=== PATIENT | female | born 1950 | race Caucasian/White ===

== ENCOUNTER 2019-01-01 17:33 | Emergency (ER) | payer MEDICARE, MEDICAID ==
[~2019-01-01] VITALS: Ht 154.9 cm; Wt 95.3 kg
--- OUTSIDE RECORDS SUMMARY | 2019-01-01 17:38 | XMS REPORT | Continuity of Care Document ---
Author Organization Unknown Address Unknown Allergies There is no data. Medications There is no data. Problems There is no data. Procedures There is no data. Results There is no data. Encounters ACCT No. Visit Date/Time Discharge Status Pt. Type Provider Facility Loc./Unit Complaint [id number] 12/21/2018 11:00:00 12/21/2018 23:59:59 CLS Outpatient Marcela Desir [facility]
[2019-01-01 18:00] LABS: EOSINOPHILS % (AUTO) 2 % (0-10); HEMATOCRIT 36 % (35-52); HEMOGLOBIN 12.1 G/DL (11.5-16.0); LYMPHOCYTES % (AUTO) 18 % (12-44); MEAN CORPUSCULAR HEMOGLOBIN 31 PG (25-34); MEAN CORPUSCULAR HGB CONC 34 G/DL (32-36); MEAN CORPUSCULAR VOLUME 91 FL (80-99); MEAN PLATELET VOLUME 11.5 FL (7.4-10.4); MONOCYTES % (AUTO) 6 % (0-12); NEUTROPHILS % (AUTO) 73 % (42-75); PLATELET COUNT 156 10^3/uL (130-400); RED CELL DISTRIBUTION WIDTH 12.8 % (10.0-14.5); WHITE BLOOD COUNT 7.7 10^3/uL (4.3-11.0)
[2019-01-01 18:01] LABS: BASOPHILS % (AUTO) 0 % (0-10); EOSINOPHILS # (AUTO) 0.1 10^3/uL (0.0-0.3); LYMPHOCYTES # (AUTO) 1.4 X 10^3 (1.0-4.0); MONOCYTES # (AUTO) 0.5 X 10^3 (0.0-1.0); NEUTROPHILS # (AUTO) 5.6 X 10^3 (1.8-7.8)
[2019-01-01 18:11] LABS: BUN/CREATININE RATIO 25; CARBON DIOXIDE 21 MMOL/L (21-32); CHLORIDE 93 MMOL/L (98-107); CREATININE SERUM 0.57 MG/DL (0.60-1.30); GFR ESTIMATED > 60; POTASSIUM 4.2 MMOL/L (3.6-5.0); SODIUM 131 MMOL/L (135-145)
[2019-01-01 18:12] LABS: ALANINE AMINOTRANSFERASE 25 U/L (0-55); ALBUMIN 3.9 GM/DL (3.2-4.5); ALKALINE PHOSPHATASE 66 U/L (40-136); BILIRUBIN,TOTAL 0.4 MG/DL (0.1-1.0); CALCIUM 8.4 MG/DL (8.5-10.1); GLUCOSE 101 MG/DL (70-105); TOTAL PROTEIN 6.3 GM/DL (6.4-8.2)
--- NOTE | 2019-01-01 18:21 | ED GI ---
General Chief Complaint: Abdominal/GI Problems Stated Complaint: LOOSE STOOL Source of Information: Patient, EMS History of Present Illness Date Seen by Provider: January 01, 2019 Time Seen by Provider: 18:20 Initial Comments 68-year-old female presenting with complaints of nausea and diarrhea. She presents by ambulance from home. She reports that she was having diarrhea since this morning. She was also having some nausea but no vomiting. She complained of some pain in the left side of her abdomen and was not sure if this is a be a recurrence of diverticulitis like she's had in the past. She was not having any blood in her stool. She also has severe arthritis but has not taken any of her medicines other than some metformin today. She was concerned that she stayed home she might pass out like she has an the past so she called 911 and had them bring her to the emergency department for evaluation. Her friend that helps to take care of her and check on her was out of town at a graduation so she was worried that if she didn't get checked out her friend would find her on the floor. She denies any fever or chills. She denies any pain with urination. She states that she's had several episodes of diarrhea throughout the day. Allergies and Home Medications Allergies Coded Allergies: aspirin (Unverified Adverse Reaction, Unknown, 01/01/19) Home Medications Ondansetron 4 Mg Tab.rapdis, 4 MG PO Q6H PRN for NAUSEA/VOMITING Prescribed by: JULIANA RAMÍREZ on 01/01/19 [id number] Patient Home Medication List Home Medication List Reviewed: Yes Review of Systems Review of Systems Constitutional: No chills, No fever; malaise EENTM: No Symptoms Reported Respiratory: No Symptoms Reported Cardiovascular: No Symptoms Reported Gastrointestinal: See HPI Genitourinary: See HPI Musculoskeletal: see HPI Skin: no symptoms reported Psychiatric/Neurological: Weakness (generalized) Endocrine: No Symptoms Reported Past Ewygdvw-Poqycb-Cccawc Hx Past Med/Social Hx: Reviewed Nursing Past Med/Soc Hx Patient Social History Alcohol Use: Denies Use Recreational Drug Use: No Smoking Status: Never a Smoker Recent Foreign Travel: No Contact w/Someone Who Travel: No Recent Hopitalizations: No Physical Abuse: No Sexual Abuse: No Mistreated: No Fear: No Immunizations Up To Date Date of Pneumonia Vaccine: Dec 21, 2017 Seasonal Allergies Seasonal Allergies: No Past Medical History Surgeries: Yes (S/P gastroplasty, hiatal hernia, ulnar nerve transposition, carpal tunnel ) Gallbladder Respiratory: No (hx of sinus surgery) Cardiac: Yes Hypertension Neurological: Yes (Polyneuropathy) Neuropathy Genitourinary: Yes (Renal insufficiency, Stage 3 CKD, cystitis hx, Incontinence ) UTI-Chronic Diverticulosis, Hiatal Hernia, Irritable Bowel Musculoskeletal: Yes (Bilateral sacroilitis hx, osteoathritis of spine, ) Chronic Back Pain, Fractures Endocrine: Yes (Type II DM, Morbid Obesity) Diabetes, Non-Insulin dep HEENT: Yes Cataract Cancer: No Psychosocial: Yes (Opioid dependence) Anxiety, Depression Integumentary: No (hx cellulitis) Blood Disorders: No Physical Exam Vital Signs Vital Signs - First Documented 01/01/19 17:33 Temp 97.1 Pulse 71 Resp 20 B/P (MAP) 140/64 (89) Pulse Ox 96 O2 Delivery Room Air Capillary Refill : Height/Weight/BMI Height: '" Weight: lbs. oz. kg; BMI Method: General Appearance: no apparent distress, obese HEENT: PERRL/EOMI, pharynx normal Neck: non-tender, supple, normal inspection Respiratory: chest non-tender, lungs clear, normal breath sounds, no respiratory distress, no accessory muscle use Cardiovascular: normal peripheral pulses, regular rate, rhythm, no murmur Gastrointestinal: soft, no pulsatile mass, abnormal bowel sounds (hyperactive) ; No distended, No guarding, No rebound; tenderness (mild left lower quadrant); No mass Extremities: normal range of motion, non-tender, no calf tenderness Neurologic/Psychiatric: alert, oriented x 3 Skin: normal color, warm/dry Progress/Results/Core Measures Results/Orders Lab Results Laboratory Tests Test 01/01/19 17:40 01/01/19 19:32 Range/Units White Blood Count 7.7 4.3-11.0 10^3/uL Red Blood Count 3.95 L 4.35-5.85 10^6/uL Hemoglobin 12.1 11.5-16.0 G/DL Hematocrit 36 35-52 % Mean Corpuscular Volume 91 80-99 FL Mean Corpuscular Hemoglobin 31 25-34 PG Mean Corpuscular Hemoglobin Concent 34 32-36 G/DL Red Cell Distribution Width 12.8 10.0-14.5 % Platelet Count 156 130-400 10^3/uL Mean Platelet Volume 11.5 H 7.4-10.4 FL Neutrophils (%) (Auto) 73 42-75 % Lymphocytes (%) (Auto) 18 12-44 % Monocytes (%) (Auto) 6 0-12 % Eosinophils (%) (Auto) 2 0-10 % Basophils (%) (Auto) 0 0-10 % Neutrophils # (Auto) 5.6 1.8-7.8 X 10^3 Lymphocytes # (Auto) 1.4 1.0-4.0 X 10^3 Monocytes # (Auto) 0.5 0.0-1.0 X 10^3 Eosinophils # (Auto) 0.1 0.0-0.3 10^3/uL Basophils # (Auto) 0.0 0.0-0.1 10^3/uL Sodium Level 131 L 135-145 MMOL/L Potassium Level 4.2 3.6-5.0 MMOL/L Chloride Level 93 L 98-107 MMOL/L Carbon Dioxide Level 21 21-32 MMOL/L Anion Gap 17 H 5-14 MMOL/L Blood Urea Nitrogen 14 7-18 MG/DL Creatinine 0.57 L 0.60-1.30 MG/DL Estimat Glomerular Filtration Rate > 60 BUN/Creatinine Ratio 25 Glucose Level 101 70-105 MG/DL Calcium Level 8.4 L 8.5-10.1 MG/DL Corrected Calcium 8.5 8.5-10.1 MG/DL Total Bilirubin 0.4 0.1-1.0 MG/DL Aspartate Amino Transf (AST/SGOT) 24 5-34 U/L Alanine Aminotransferase (ALT/SGPT) 25 0-55 U/L Alkaline Phosphatase 66 40-136 U/L Total Protein 6.3 L 6.4-8.2 GM/DL Albumin 3.9 3.2-4.5 GM/DL Urine Color PALE YELLOW Urine Clarity CLEAR Urine pH 6.5 5-9 Urine Specific [place] <=1.005 1.016-1.022 Urine Protein NEGATIVE NEGATIVE Urine Glucose (UA) NEGATIVE NEGATIVE Urine Ketones 1+ H NEGATIVE Urine Nitrite NEGATIVE NEGATIVE Urine Bilirubin NEGATIVE NEGATIVE Urine Urobilinogen 0.2 NORMAL MG/DL Urine Leukocyte Esterase TRACE H NEGATIVE Urine RBC (Auto) NEGATIVE NEGATIVE Urine RBC NEG /HPF Urine WBC RARE /HPF Urine Squamous Epithelial Cells 2-5 /HPF Urine Crystals NEG /LPF Urine Bacteria FEW H /HPF Urine Casts NONE /LPF Urine Mucus NEGATIVE /LPF Urine Culture Indicated NO My Orders Orders - JULIANA RAMÍREZ MD Ct Abdomen/Pelvis W (01/01/19 18:34) Ns Iv 1000 Ml (Sodium Chloride 0.9%) (01/01/19 18:45) Ondansetron Injection (Zofran Injectio (01/01/19 18:45) Stool Culture (01/01/19 18:36) Fecal Wbc (01/01/19 18:36) C Difficile Ag + Toxin A/B. (01/01/19 18:36) Isolation Central Supply Req (01/01/19 18:36) Rx-Ondansetron Po (Rx-Zofran Po) (01/01/19 21:15) Loperamide Capsule (Imodium Capsule) (01/01/19 21:15) Medications Given in ED Current Medications Medications Dose Ordered Sig/Lsahell Route Start Time Stop Time Status Last Admin Dose Admin Iohexol 100 ml ONCE ONCE IV 01/01/19 18:45 01/01/19 20:44 DC 01/01/19 19:14 80 ML Loperamide HCl 4 mg ONCE ONCE PO 01/01/19 21:15 01/01/19 21:17 DC 01/01/19 21:25 4 MG Ondansetron HCl 4 mg ONCE ONCE IVP 01/01/19 18:45 01/01/19 18:46 DC 01/01/19 19:20 4 MG Vital Signs/I&O 01/01/19 01/01/19 17:33 21:26 Temp 97.1 97.1 Pulse 71 71 Resp 20 20 B/P (MAP) 140/64 (89) 140/64 (89) Pulse Ox 96 96 O2 Delivery Room Air Room Air Progress Progress Note #1: Time: 18:30 Progress Note I assumed care of the patient from Dr. Rich. He had started some basic labs and tests on the patient just prior to my arrival. I added on a CT scan of her abdomen and pelvis to evaluate for her diarrhea and abdominal pain and see if she was having diverticulitis or any other pathology to be causing her symptoms. Progress Note #2: Time: 20:30 Progress Note Labs are all stable without acute significant maladies. Her chemistry and CBC were looking okay without elevation of creatinine her white blood cell count. She does have elevated glucose. Her CT scan did not show evidence of diverticulitis or colitis. Her urinalysis was not showing signs of infection or dehydration. She states that she was feeling better after treatment here in the ED. Will plan on discharge to home with treatment for nausea as well as diarrhea. Encouraged fluids and rest. Encouraged to resume her medications as normal. Initial ECG Impression Date: January 01, 2019 Initial ECG Impression Time: 18:00 Initial ECG Rate: 68 Initial ECG Rhythm: Normal Sinus Initial ECG Intervals: Normal Initial ECG Impression: Normal Initial ECG Comparisson: No Previous ECG Available Diagnostic Imaging Diagonstic Imaging: CT Plain Films/CT/US/NM/MRI: abdomen, pelvis Comments NAME: HAYDEE GRESHAM [facility] REC#: [id number] PT STATUS: REG ER : 1950 PHYSICIAN: JULIANA RAMÍREZ MD ADMIT DATE: 01/01/19/ER FS Draft Date of Exam:01/01/19 CT ABDOMEN/PELVIS W INDICATION: History of gastric bypass and diarrhea. EXAMINATION: CT of the abdomen and pelvis were obtained with IV contrast bolus. COMPARISON: There is no prior study for comparison. FINDINGS: Visualized portions of the lung bases are clear. There is no pleural fluid collection. There is no free intraperitoneal air. The liver shows diffuse low-density change compatible with fatty infiltration. Gallbladder is absent. Spleen shows a tiny cyst peripherally but is otherwise normal. The adrenals and pancreas appear normal. The kidneys, bilaterally, appear unremarkable. There are postop changes status post gastric bypass. There is no overt bowel obstruction or focal bowel wall thickening. There is no pelvic mass or free fluid. IMPRESSION: Postop changes status post gastric bypass. Mild fatty infiltration of the liver. Tiny incidental cyst in the spleen. Evidence of prior cholecystectomy. No acute appearing abnormality is visualized. Dictated on workstation # [id number] Dict: 01/01/191939 Trans: 01/01/191954 PJE [id number] Interpreted by: VENECIA STEPHENS MD Electronically signed by: Reviewed: Reviewed by Me (and radiologist reading) Departure Impression Primary Impression: Diarrhea Qualified Codes: R19.7 - Diarrhea, unspecified Additional Impression: Nausea alone Disposition: 01 HOME, SELF-CARE Condition: Stable Departure-Patient Inst. Decision time for Depature: 21:12 Referrals: NO,LOCAL PHYSICIAN (PCP) Primary Care Physician Patient Instructions: Diarrhea in Adolescents and Adults, Nausea and Vomiting, Adult (DC) Add. Discharge Instructions: Stay well hydrated and continue on your regular medicines Use the dissolving nausea medicine to help keep your stomach settled. Use the Imodium to help slow down your diarrhea Check with clinic if still having problems on Thursday All discharge instructions reviewed with patient and/or family. Voiced understanding. Scripts Ondansetron (Ondansetron Odt) 4 Mg Tab.rapdis 4 MG PO Q6H PRN for NAUSEA/VOMITING for 3 Days, #12 TAB 0 Refills Prov: JULIANA RAMÍREZ MD 01/01/19 JULIANA RAMÍREZ MD January 01, 2019 18:20
[2019-01-01] MEDS ORDERED: IOHEXOL 350 MG/ML 100 ML (OMNIPAQUE 350) VIAL IV ONE (18:45)
[2019-01-01] MEDS ORDERED: NS 100 ML (IVPB) BAG IV ONE (18:45)
[2019-01-01] MEDS ORDERED: HOLD METFORMIN - RECEIVED CONTRAST 20 ML VIAL IV SCH (18:45)
[2019-01-01] MEDS ORDERED: NS IV 1000 ML 1,000 ML IV SCH (18:45)
[2019-01-01] MEDS ORDERED: ONDANSETRON 4 MG/2 ML (SDV) Z0FRAN IVP ONE (18:45)
--- NOTE | 2019-01-01 19:00 | NUR ---
TO CT PER CART.
--- NOTE | 2019-01-01 19:15 | NUR ---
REPORT TO SHONNA HAYES. PT MED/FLUIDS DELAYED R/T ER EMERGENCY. PT HAS BEEN IN CT AND UNABLE TO ADMIN.
[2019-01-01 19:51] LABS: CLARITY,URINE CLEAR; COLOR,URINE PALE YELLOW
[2019-01-01 19:52] LABS: BILIRUBIN,URINE NEGATIVE (NEGATIVE); GLUCOSE, URINE (UA) NEGATIVE (NEGATIVE); KETONES,URINE 1+ (NEGATIVE); LEUKOCYTE ESTERASE ,URINE TRACE (NEGATIVE); NITRITE,URINE NEGATIVE (NEGATIVE); PH,URINE 6.5 (5-9); PROTEIN,URINE NEGATIVE (NEGATIVE); RBC,URINE NEG /HPF; UROBILINOGEN,URINE 0.2 MG/DL (NORMAL); WBC,URINE RARE /HPF
[2019-01-01 19:53] LABS: BACTERIA,URINE FEW /HPF
--- NOTE | 2019-01-01 19:56 | Diagnostic Imaging Report ---
INDICATION: History of gastric bypass and diarrhea. EXAMINATION: CT of the abdomen and pelvis were obtained with IV contrast bolus. COMPARISON: There is no prior study for comparison. FINDINGS: Visualized portions of the lung bases are clear. There is no pleural fluid collection. There is no free intraperitoneal air. The liver shows diffuse low-density change compatible with fatty infiltration. Gallbladder is absent. Spleen shows a tiny cyst peripherally but is otherwise normal. The adrenals and pancreas appear normal. The kidneys, bilaterally, appear unremarkable. There are postop changes status post gastric bypass. There is no overt bowel obstruction or focal bowel wall thickening. There is no pelvic mass or free fluid. IMPRESSION: Postop changes status post gastric bypass. Mild fatty infiltration of the liver. Tiny incidental cyst in the spleen. Evidence of prior cholecystectomy. No acute appearing abnormality is visualized. Dictated by: Dictated on workstation # [id number]
[2019-01-01] MEDS ORDERED: ONDA4TAB11 PO (21:15)
[2019-01-01] MEDS ORDERED: LOPERAMIDE 2 MG (IMODIUM) CAP PO ONE (21:15)
[2019-01-01] MEDS ORDERED: RX-ONDANSETRON 4 MG ODT (ZOFRAN) PPK #4 PO PRN (21:15)
[2019-01-01 21:26] VITALS: BP 140/64
== END 2019-01-01 21:26 | disposition home or self-care (01) ==
LOC: ER FS 17:35
DX: R19.7 Diarrhea, unspecified (principal); R11.0 Nausea; G62.9 Polyneuropathy, unspecified; K58.9 Irritable bowel syndrome, unspecified; E66.01 Morbid (severe) obesity due to excess calories; F41.9 Anxiety disorder, unspecified; F32.9 Major depressive disorder, single episode, unspecified; E11.22 Type 2 diabetes mellitus with diabetic chronic kidney disease; I12.9 Hypertensive chronic kidney disease with stage 1 through stage 4 chronic kidney disease, or unspecified chronic kidney disease; N18.3 Chronic kidney disease, stage 3 (moderate); Z87.19 Personal history of other diseases of the digestive system; Z87.440 Personal history of urinary (tract) infections; Z88.6 Allergy status to analgesic agent; Z98.890 Other specified postprocedural states; Z68.39 Body mass index [BMI] 39.0-39.9, adult
CPT/HCPCS: 36415; 74177; 80053; 81000; 85025; 93005; 96374

== ENCOUNTER 2019-07-11 16:05 | Inpatient (IN) | payer MEDICARE, MEDICAID ==
[~2019-07-11] VITALS: Ht 154.9 cm; Wt 84.8 kg
[~2019-07-11 16:05] MED LIST: ONDA4TAB11 PO
[2019-07-11 16:49] LABS: BASOPHILS % (AUTO) 0 % (0-10); EOSINOPHILS # (AUTO) 0.2 10^3/uL (0.0-0.3); EOSINOPHILS % (AUTO) 2 % (0-10); HEMATOCRIT 37 % (35-52); HEMOGLOBIN 11.4 G/DL (11.5-16.0); LYMPHOCYTES # (AUTO) 1.3 X 10^3 (1.0-4.0); LYMPHOCYTES % (AUTO) 13 % (12-44); MEAN CORPUSCULAR HEMOGLOBIN 30 PG (25-34); MEAN CORPUSCULAR HGB CONC 31 G/DL (32-36); MEAN CORPUSCULAR VOLUME 98 FL (80-99); MEAN PLATELET VOLUME 12.2 FL (7.4-10.4); MONOCYTES # (AUTO) 0.7 X 10^3 (0.0-1.0); MONOCYTES % (AUTO) 7 % (0-12); NEUTROPHILS # (AUTO) 7.8 X 10^3 (1.8-7.8); NEUTROPHILS % (AUTO) 78 % (42-75); PLATELET COUNT 208 10^3/uL (130-400); RED CELL DISTRIBUTION WIDTH 13.3 % (10.0-14.5)
--- NOTE | 2019-07-11 17:05 | Diagnostic Imaging Report ---
PROCEDURE: CT head without contrast. TECHNIQUE: Multiple contiguous axial images were obtained through the brain without the use of intravenous contrast. Auto Exposure Controls were utilized during the CT exam to meet ALARA standards for radiation dose reduction. INDICATION: Confusion and altered mental status. COMPARISON: None. FINDINGS: Ventricles are normal in size, shape, and position. There is no midline shift or mass effect. There is no hemorrhage or evidence of acute ischemia. No extra-axial fluid collection is seen. There is no mass. The bony calvarium, paranasal sinuses, and mastoids are clear. IMPRESSION: Negative CT head. Dictated by: Dictated on workstation # [id number]
[2019-07-11 17:09] LABS: ACETAMINOPHEN < 10 UG/ML (10-30); ALANINE AMINOTRANSFERASE 19 U/L (0-55); ALKALINE PHOSPHATASE 73 U/L (40-136); BILIRUBIN,TOTAL 0.4 MG/DL (0.1-1.0); BUN/CREATININE RATIO 16; CALCIUM 9.4 MG/DL (8.5-10.1); CARBON DIOXIDE 26 MMOL/L (21-32); CHLORIDE 100 MMOL/L (98-107); GFR ESTIMATED 24; GLUCOSE 109 MG/DL (70-105); POTASSIUM 5.5 MMOL/L (3.6-5.0); SALICYLATE < 5.0 MG/DL (5.0-20.0); SODIUM 139 MMOL/L (135-145); TOTAL PROTEIN 6.5 GM/DL (6.4-8.2)
--- NOTE | 2019-07-11 17:27 | ED General ---
General Chief Complaint: Altered Mental Status Stated Complaint: AMS Source of Information: Patient, EMS, Other (friend) History of Present Illness Date Seen by Provider: Jul 11, 2019 Time Seen by Provider: 16:07 Initial Comments 68-year-old female presenting by EMS from home. She lives at home alone but has friends that help to watch after her. She was having some increased confusion over the last few weeks and worse in the last few days according to her friend. The patient reports that she doesn't feel like anything was wrong. She hasn't sure why she was here in the emergency department. She does admit that she has been bumping into lujan and falling more frequently recently. She cannot tell me exactly when she fell to cause an injury in a black eye on the right side of her head and face. She denies having any medical problems. When asked what year it was she states it is "19 or 18 or 17". She is oriented to her self and to the fact that she is in a hospital setting. She denies having any pain. She denies any nausea or vomiting. She also denies any pain with urination. She denies any change in her bowels and states that she had a bowel movement today. Allergies and Home Medications Allergies Coded Allergies: aspirin (Unverified Adverse Reaction, Unknown, 01/01/19) Home Medications Ondansetron 4 Mg Tab.rapdis, 4 MG PO Q6H PRN for NAUSEA/VOMITING Prescribed by: JULIANA RAMÍREZ on 01/01/197 Patient Home Medication List Home Medication List Reviewed: Yes Review of Systems Review of Systems Constitutional: No chills, No fever EENTM: other (dry mouth) Respiratory: No cough, No short of breath Cardiovascular: No chest pain Gastrointestinal: No constipation, No diarrhea, No nausea, No vomiting Genitourinary: No dysuria, No frequency Musculoskeletal: no symptoms reported Skin: other (bruising and injury to right side of face and around right eye but can not say when the injury happened) Psychiatric/Neurological: Denies Headache; Weakness (reports increased number of falls recently) Hematologic/Lymphatic: No Symptoms Reported pt rambles and is only oriented to self and that she is in a hospital so her ROS may not be reliable Past Celadrs-Fncpfb-Jgppza Hx Past Med/Social Hx: Reviewed Nursing Past Med/Soc Hx Patient Social History Recent Foreign Travel: Yes Recent Hopitalizations: No Immunizations Up To Date Date of Pneumonia Vaccine: Dec 21, 2017 Seasonal Allergies Seasonal Allergies: No Past Medical History Surgeries: Yes (S/P gastroplasty, hiatal hernia, ulnar nerve transposition, carpal tunnel ) Gallbladder Respiratory: No (hx of sinus surgery) Cardiac: Yes Hypertension Neurological: Yes (Polyneuropathy) Neuropathy Genitourinary: Yes (Renal insufficiency, Stage 3 CKD, cystitis hx, Incontinence) UTI-Chronic Diverticulosis, Hiatal Hernia, Irritable Bowel Musculoskeletal: Yes (Bilateral sacroilitis hx, osteoathritis of spine, ) Chronic Back Pain, Fractures Endocrine: Yes (Type II DM, Morbid Obesity) Diabetes, Non-Insulin dep HEENT: Yes Cataract Cancer: No Psychosocial: Yes (Opioid dependence) Anxiety, Depression Integumentary: No (hx cellulitis) Blood Disorders: No Physical Exam Vital Signs Vital Signs - First Documented 07/11/19 07/11/19 17:00 20:59 Temp 36.2 Pulse 90 Resp 14 B/P (MAP) 117/50 (72) Pulse Ox 100 O2 Delivery Room Air Capillary Refill : Height, Weight, BMI Height: 5'1.00" Weight: 210lbs. oz. 95.646258wi; BMI Method:Stated General Appearance: No Apparent Distress, WD/WN HEENT: PERRL/EOMI, TMs Normal (no hemotympanum); No Moist Mucous Membranes (dry mucous membranes) Neck: Full Range of Motion, Non Tender, Supple Respiratory: Chest Non Tender, Lungs Clear, Normal Breath Sounds, No Accessory Muscle Use, No Respiratory Distress Cardiovascular: Regular Rate, Rhythm, Normal Peripheral Pulses Gastrointestinal: Normal Bowel Sounds, No Pulsatile Mass, Non Tender, Soft Extremity: Normal Capillary Refill, No Pedal Edema Neurologic/Psychiatric: Alert; No Oriented x3 (oriented to self and place only) Skin: Warm/Dry, Ecchymosis (right eye and right church/forehead area) Progress/Results/Core Measures Suspected Sepsis SIRS Temperature: Pulse: Respiratory Rate: Laboratory Tests 07/11/19 14:20: White Blood Count 10.0 Blood Pressure / Mean: Laboratory Tests 07/11/19 14:20: Creatinine 2.10H, Platelet Count 208, Total Bilirubin 0.4 Results/Orders Lab Results Laboratory Tests Test 07/11/19 14:20 07/11/19 16:40 Range/Units White Blood Count 10.0 4.3-11.0 10^3/uL Red Blood Count 3.79 L 4.35-5.85 10^6/uL Hemoglobin 11.4 L 11.5-16.0 G/DL Hematocrit 37 35-52 % Mean Corpuscular Volume 98 80-99 FL Mean Corpuscular Hemoglobin 30 25-34 PG Mean Corpuscular Hemoglobin Concent 31 L 32-36 G/DL Red Cell Distribution Width 13.3 10.0-14.5 % Platelet Count 208 130-400 10^3/uL Mean Platelet Volume 12.2 H 7.4-10.4 FL Neutrophils (%) (Auto) 78 H 42-75 % Lymphocytes (%) (Auto) 13 12-44 % Monocytes (%) (Auto) 7 0-12 % Eosinophils (%) (Auto) 2 0-10 % Basophils (%) (Auto) 0 0-10 % Neutrophils # (Auto) 7.8 1.8-7.8 X 10^3 Lymphocytes # (Auto) 1.3 1.0-4.0 X 10^3 Monocytes # (Auto) 0.7 0.0-1.0 X 10^3 Eosinophils # (Auto) 0.2 0.0-0.3 10^3/uL Basophils # (Auto) 0.0 0.0-0.1 10^3/uL Sodium Level 139 135-145 MMOL/L Potassium Level 5.5 H 3.6-5.0 MMOL/L Chloride Level 100 98-107 MMOL/L Carbon Dioxide Level 26 21-32 MMOL/L Anion Gap 13 5-14 MMOL/L Blood Urea Nitrogen 33 H 7-18 MG/DL Creatinine 2.10 H 0.60-1.30 MG/DL Estimat Glomerular Filtration Rate 24 BUN/Creatinine Ratio 16 Glucose Level 109 H 70-105 MG/DL Calcium Level 9.4 8.5-10.1 MG/DL Corrected Calcium 9.4 8.5-10.1 MG/DL Total Bilirubin 0.4 0.1-1.0 MG/DL Aspartate Amino Transf (AST/SGOT) 35 H 5-34 U/L Alanine Aminotransferase (ALT/SGPT) 19 0-55 U/L Alkaline Phosphatase 73 40-136 U/L Total Protein 6.5 6.4-8.2 GM/DL Albumin 4.0 3.2-4.5 GM/DL Salicylates Level < 5.0 L 5.0-20.0 MG/DL Acetaminophen Level < 10 L 10-30 UG/ML Serum Alcohol < 10 <10 MG/DL Urine Color YELLOW Urine Clarity SL CLOUDY Urine pH 5.5 5-9 Urine Specific Sutton 1.025 H 1.016-1.022 Urine Protein TRACE NEGATIVE Urine Glucose (UA) NEGATIVE NEGATIVE Urine Ketones TRACE H NEGATIVE Urine Nitrite NEGATIVE NEGATIVE Urine Bilirubin 1+ H NEGATIVE Urine Urobilinogen 0.2 < = 1.0 MG/DL Urine Leukocyte Esterase TRACE NEGATIVE Urine RBC (Auto) NEGATIVE NEGATIVE Urine RBC NONE /HPF Urine WBC 10-25 H /HPF Urine Squamous Epithelial Cells RARE /HPF Urine Crystals NONE /LPF Urine Bacteria LARGE H /HPF Urine Casts NONE /LPF Urine Mucus NEGATIVE /LPF Urine Culture Indicated YES Urine Opiates Screen POSITIVE H NEGATIVE Urine Oxycodone Screen NEGATIVE NEGATIVE Urine Methadone Screen NEGATIVE NEGATIVE Urine Propoxyphene Screen NEGATIVE NEGATIVE Urine Barbiturates Screen NEGATIVE NEGATIVE Ur Tricyclic Antidepressants Screen NEGATIVE NEGATIVE Urine Phencyclidine Screen NEGATIVE NEGATIVE Urine Amphetamines Screen NEGATIVE NEGATIVE Urine Methamphetamines Screen NEGATIVE NEGATIVE Urine Benzodiazepines Screen POSITIVE H NEGATIVE Urine Cocaine Screen NEGATIVE NEGATIVE Urine Cannabinoids Screen NEGATIVE NEGATIVE My Orders Orders - JULIANA RAMÍREZ MD Ua Culture If Indicated (07/11/19 16:38) Cbc With Automated Diff (07/11/19 16:38) Comprehensive Metabolic Panel (07/11/19 16:38) Alcohol (07/11/19 16:38) Drug Screen Stat (Urine) (07/11/19 16:38) Acetaminophen (07/11/19 16:38) Salicylate (07/11/19 16:38) Ekg Tracing (07/11/19 16:38) Ed Iv/Invasive Line Start (07/11/19 16:38) Monitor-Rhythm Ecg Trace Only (07/11/19 16:38) Ct Head Wo (07/11/19 16:38) Straight Cath For Spec.-Adult (07/11/19 17:13) Urine Culture (07/11/19 16:40) Ceftriaxone For Iv Use (Rocephin For I (07/11/19 18:08) Ns Iv 1000 Ml (Sodium Chloride 0.9%) (07/11/19 18:15) Vital Signs/I&O 07/11/19 07/11/19 07/11/19 17:00 20:59 23:49 Temp 36.2 36.4 Pulse 90 94 93 Resp 14 15 B/P (MAP) 117/50 (72) 109/73 Pulse Ox 100 93 O2 Delivery Room Air Capillary Refill : Progress Note #1: Progress Note Obtain labs as well as CT of her head to evaluate for possible hemorrhage or stroke since she has had injury to her face and recent fall. Obtain urinalysis to look for infection. Electrocardiogram to look for any abnormality with her heart tracing. Progress Note #2: Progress Note CT head does not show any acute abnormality. There is no intracranial hemorrhage or fractures. Her labs are showing normal CBC with chemistry showing elevated BUN/creatinine with BUN of 33 and creatinine 2.1. Her previous creatinine in the system was in December and it was 0.5 at that point. She had to have a quick catheter to obtain a urine specimen and this did show bacteria and signs of a UTI. Progress Note #3: Progress Note Discussed with Dr. Estrada is the on-call provider for [facility] and will admit for IV antibiotics and hydration. Hopefully her creatinine will improve as she is hydrated. Her friends showed up and provided additional history as well as the medication list after speaking with Dr. Estrada and will add this into the history for the admission Progress Note #4: Progress Note Patient was being calm and cooperative with staff and was agreeable with plan for admit until EMS arrived and then she became combative and more confused. She does not remember speaking with me earlier. She was saying that she wanted to be let go and allowed to leave. She was asking where her friend was because she states that that that was the only person that she trusted. I reminded her that her friend this along but had encouraged her to come and agreed with the need for her to be admitted because of her kidneys and the urine infection. She was still being combative and EMS had given her some Ativan and Versed to help calm her down for the transport. She finally was relaxed enough to agree about sitting on the cot and be transported to [facility]. ECG Initial ECG Impression Date: Jul 11, 2019 Initial ECG Impression Time: 17:19 Initial ECG Rate: 81 Initial ECG Rhythm: Normal Sinus Initial ECG Comparisson: No Previous ECG Available Comment Sinus rhythm with heart rate of 81 bpm. WV interval 158 ms. QT interval 390 ms and a QT corrected interval 453 ms. There is no acute ST elevation or ischemic changes. There is no prior tracing for comparison. Diagnostic Imaging Diagonstic Imaging: CT Plain Films/CT/US/NM/MRI: head Comments NAME: HAYDEE GRESHAM [facility] REC#: [id number] PT STATUS: REG ER : 1950 PHYSICIAN: JULIANA RAMÍREZ MD ADMIT DATE: 07/11/19/ER FS Signed POSDate of Exam:07/11/19 CT HEAD WO PROCEDURE: CT head without contrast. TECHNIQUE: Multiple contiguous axial images were obtained through the brain without the use of intravenous contrast. Auto Exposure Controls were utilized during the CT exam to meet ALARA standards for radiation dose reduction. INDICATION: Confusion and altered mental status. COMPARISON: None. FINDINGS: Ventricles are normal in size, shape, and position. There is no midline shift or mass effect. There is no hemorrhage or evidence of acute ischemia. No extra-axial fluid collection is seen. There is no mass. The bony calvarium, paranasal sinuses, and mastoids are clear. IMPRESSION: Negative CT head. Dictated by: Dictated on workstation # [id number] Dict: 07/11/19 1702 Trans: 07/11/19 1835 [id number] Interpreted by: CHELY ALLAN Electronically signed by: CHELY ALLAN 07/11/19 1835 Departure Communication (Admissions) Time/Spoke to Admitting Phy: 17:[address] Estrada from [facility] about admitting the patient for UTI and acute kidney injury. Hopefully this is all from dehydration as patient has not been drinking well due to confusion related to her urine infection. With hydration we will monitor her renal function and see how she responds. Impression Primary Impression: Cystitis without hematuria Additional Impressions: Acute kidney injury (nontraumatic) Confusion Disposition: ADMITTED INPATIENT Condition: Stable Admissions Decision to Admit Reason: Admit from ER (General) Decision to Admit/Date: Jul 11, 2019 Time/Decision to Admit Time: 17:48 Departure-Patient Inst. Referrals: [facility] (PCP) Primary Care Physician NO,LOCAL PHYSICIAN (Family) Primary Care Physician JULIANA RAMÍREZ MD Jul 11, 2019 17:27 POS
[2019-07-11 17:35] LABS: CLARITY,URINE SL CLOUDY; COLOR,URINE YELLOW
[2019-07-11 17:36] LABS: BACTERIA,URINE LARGE /HPF; BILIRUBIN,URINE 1+ (NEGATIVE); GLUCOSE, URINE (UA) NEGATIVE (NEGATIVE); KETONES,URINE TRACE (NEGATIVE); LEUKOCYTE ESTERASE ,URINE TRACE (NEGATIVE); NITRITE,URINE NEGATIVE (NEGATIVE); PH,URINE 5.5 (5-9); PROTEIN,URINE TRACE (NEGATIVE); SQUAMOUS EPITHELIAL CELL,UR RARE /HPF
[2019-07-11] MEDS ORDERED: cefTRIAXone FOR IV USE 1,000 MG in WATER (STERILE) FOR INJECTION 10 ML IV STA (18:08)
--- NOTE | 2019-07-11 18:21 | NUR ---
Charge nurse contacted for bed placement.
[2019-07-11] MEDS: NS IV 1000 ML 1,000 ML IV SCH (18:25)
[2019-07-11 18:47] LABS: AMPHETAMINE SCREEN, URINE NEGATIVE (NEGATIVE); BARBITURATE SCREEN URINE NEGATIVE (NEGATIVE); BENZODIAZEPINES SCREEN URINE POSITIVE (NEGATIVE); CANNABINOID SCREEN, URINE NEGATIVE (NEGATIVE); COCAINE SCREEN URINE NEGATIVE (NEGATIVE); METHADONE STAT NEGATIVE (NEGATIVE); METHAMPHETAMINE SCREEN URINE S NEGATIVE (NEGATIVE); OPIATE SCREEN URINE POSITIVE (NEGATIVE); OXYCODONE STAT NEGATIVE (NEGATIVE); PROPOXYPHENE STAT NEGATIVE (NEGATIVE); TRICYCLIC ANTIDEPRESSANTS SCRE NEGATIVE (NEGATIVE)
--- NOTE | 2019-07-11 18:57 | NUR ---
contacted [facility]and [facility] for transfer. [facility] said no because their truck is out and [facility] said they might but they will have to call us back.
--- NOTE | 2019-07-11 19:01 | NUR ---
[facility] declined as they have a transfer
--- NOTE | 2019-07-11 20:45 | NUR ---
HAD TO RESTART THE IV IN THE LEFT AC WITH A 20 GAUGE THE PT. HAS PULLED OUT THE IV IN THE RIGHT AC. PLACED KERLEX OVER THE IV SITE.
[2019-07-11 23:00] VITALS: BP 72/41
--- NOTE | 2019-07-11 23:00 | NUR ---
HAYDEE GRESHAM admitted to room 423-1, with an admitting diagnosis of cystitis without hematuria, acute kidney injury, confusion, on 07/11/19 from ER ([facility]) via EMS, accompanied by EMS staff. Attempted to introduce HAYDEE GRESHAM introduced to surroundings, call light, bed controls, phone, TV, temperature control, lights, meal times, smoking policy, visitor policy, side rail policy, bathrooms and showers, but will need to reinforce PRN. Patient Rights given to patient in the handbook. HAYDEE GRESHAM is unable to comprehend understanding that [facility] is not responsible for the loss or damage to any personal effects or valuables that are kept in the patients posession during their hospitalization.
--- NOTE | 2019-07-11 23:35 | NUR ---
Dr. Estrada notified of low BP at 69/38 and 72/41 with hr at 103, also of decreased o2 sats in 80's requiring oxygen per NC. ( informed of pt being giving 5 mg Ativan and 4 mg Versed before arrival for combativeness). New orders rec for fluid bolus of 1L Normal Saline over one hour and O2 to keep sat above 92-94%. Will continue to monitor.
[2019-07-11] MEDS ORDERED: NS IV 1000 ML 1,000 ML IV SCH (23:45)
[2019-07-11] MEDS ORDERED: ACETAMINOPHEN 325 MG TABLET PO PRN (23:45)
[2019-07-11] MEDS ORDERED: ONDANSETRON 4 MG/2 ML (SDV) Z0FRAN IV PRN (23:45)
[2019-07-12] VITALS: BP 72/41
[2019-07-12 04:00] VITALS: BP 108/64
[2019-07-12 05:09] LABS: BASOPHILS % (AUTO) 0 % (0-10); EOSINOPHILS # (AUTO) 0.1 10^3/uL (0.0-0.3); EOSINOPHILS % (AUTO) 2 % (0-10); HEMATOCRIT 36 % (35-52); HEMOGLOBIN 11.1 G/DL (11.5-16.0); LYMPHOCYTES % (AUTO) 13 % (12-44); MEAN CORPUSCULAR HEMOGLOBIN 30 PG (25-34); MEAN CORPUSCULAR HGB CONC 31 G/DL (32-36); MEAN CORPUSCULAR VOLUME 98 FL (80-99); MEAN PLATELET VOLUME 11.8 FL (7.4-10.4); MONOCYTES # (AUTO) 0.6 X 10^3 (0.0-1.0); MONOCYTES % (AUTO) 9 % (0-12); NEUTROPHILS # (AUTO) 5.6 X 10^3 (1.8-7.8); NEUTROPHILS % (AUTO) 77 % (42-75); PLATELET COUNT 179 10^3/uL (130-400); RED CELL DISTRIBUTION WIDTH 13.3 % (10.0-14.5); WHITE BLOOD COUNT 7.3 10^3/uL (4.3-11.0)
[2019-07-12] MEDS: NS IV 1000 ML 1,000 ML IV SCH ×2 (05:09→15:23)
[2019-07-12 05:26] LABS: ALBUMIN 3.7 GM/DL (3.2-4.5); BILIRUBIN,TOTAL 0.5 MG/DL (0.1-1.0); CALCIUM 8.5 MG/DL (8.5-10.1); CREATININE SERUM 1.75 MG/DL (0.60-1.30); POTASSIUM 5.3 MMOL/L (3.6-5.0); TOTAL PROTEIN 5.9 GM/DL (6.4-8.2)
[2019-07-12 08:00] VITALS: BP 115/56
[2019-07-12] MEDS: ENOXAPARIN 40 MG/0.4 ML (LOVENOX) SYR SC SCH (10:18)
--- NOTE | 2019-07-12 11:34 | History & Physical-Hospitalist ---
[facility]ICKET[facility] 07/12/19 1134: History of Present Illness HPI/Chief Complaint CC: Confusion, UTI HPI: Pt presents to [facility] with confusion for past few weeks that has been worse the last few days according to a friend. The patient is does not believe anything is wrong, but does state she has been running into lujan and falling more frequently. She has a bruise on her right eye that she is unaware of when it may have occurred. She was found to have a UTI in the ER and a head CT did not reveal any trauma or bleeding. She was admitted to this hospital and started on IV Ceftriaxone for the UTI. She is still very confused and a poor hi storian. She denies any home medications, tobacco, alcohol, or recreational drug use, but the UDS showed positive opiates and BZD. She became agitated prior to transfer form the Er and was given Ativan and Versed to calm her down for transfer. Her labs showed high potassium 5.3, kidney disease BUN 33, Cr 2.1 and the next morning did show an increase in AST 352, ALT 146. Source: patient Exam Limitations: other (Confusion) Date Seen 07/12/19 Attending Physician Yen Whyte DO [facility] Referring Physician Date of Admission Jul 11, 2019 at 21:07 Home Medications & Allergies Home Medications Reviewed patient Home Medication Reconciliation performed by pharmacy medication reconciliations robotics technician and/or nursing. Patients Allergies have been reviewed. Allergies Allergies Coded Allergies aspirin (Unverified Adverse Reaction, Unknown, 01/01/19) Past Rdsdxxh-Mwounn-Jkinht Hx Past Med/Social Hx: Reviewed Nursing Past Med/Soc Hx Patient Social History Alcohol Use: Denies Use Recreational Drug Use: No Recent Foreign Travel: No Contact w/other who traveled: No Recent Hopitalizations: No Recent Infectious Disease Expo: No Immunizations Up To Date Date of Pneumonia Vaccine: Dec 21, 2017 Seasonal Allergies Seasonal Allergies: No Past Medical History Surgeries: Gallbladder Cardiac: Hypertension Neurological: Neuropathy : No Genitourinary: UTI-Chronic Gastrointestinal: Diverticulosis, Hiatal Hernia, Irritable Bowel Musculoskeletal: Chronic Back Pain, Fractures Endocrine: Diabetes, Non-Insulin dep HEENT: Cataract Psychosocial: Anxiety, Depression History of Blood Disorders: No Family History Patient reports no known family medical history. Review of Systems ROS-Unable to Obtain: Difficult to obtain due to confusion Constitutional: no symptoms reported EENTM: no symptoms reported Respiratory: No cough, No short of breath Cardiovascular: No chest pain, No palpitations Gastrointestinal: no symptoms reported; No abdominal pain Genitourinary: no symptoms reported Skin: no symptoms reported Physical Exam Physical Exam Vital Signs Vital Signs - First Documented 07/11/19 07/11/19 17:00 20:59 Temp 36.2 Pulse 90 Resp 14 B/P (MAP) 117/50 (72) Pulse Ox 100 O2 Delivery Room Air Capillary Refill : Less Than 3 Seconds Height, Weight, BMI Height: 5'1.00" Weight: 210lbs. oz. 95.457347ap; 35.34 BMI Method:Stated General Appearance: Moderate Distress Respiratory: Chest Non Tender, Lungs Clear, Normal Breath Sounds, No Accessory Muscle Use, No Respiratory Distress Cardiovascular: Regular Rate, Rhythm, No Edema, Normal Peripheral Pulses Gastrointestinal: Normal Bowel Sounds, Non Tender, Soft, Hepatomegaly (Mild) Extremity: Non Tender, No Calf Tenderness, No Pedal Edema Neurologic/Psychiatric: Alert, No Motor/Sensory Deficits, Disoriented, Other (C onfusion) Skin: Normal Color, Warm/Dry Results Results/Procedures Labs Laboratory Tests 07/11/19 14:20 07/12/19 04:35 Patient resulted labs reviewed. Assessment/Plan Assessment and Plan Assessment: UTI Opioid use Benzodiazepine use Disorientation/Confusion Elevated Liver enzymes renal Insufficiency Plan: Antibiotics (Ceftriaxone) Monitor for withdrawal symptoms Monitor Liver enzymes, check ammonia level for hepatic encephalitis CT abdomen possibly depending on liver enzymes and mental status change after antibiotic treatment IV fluids Monitor kidney function Clinical Quality Measures DVT/VTE Risk/Contraindication: Risk Factor Score Per Nursin RFS Level Per Nursing on Admit: 4+=Very High YEN WHYTE DO 07/12/191926: History of Present Illness HPI/Chief Complaint Chief complaint: Altered mental status HPI: This is a 68yoWF who apparently moved from [place] recently, lives alone and unclear of any medical details from the Pt. Pt presented to the [facility] with confusion and Pt was found to have a UTI and acute renal failure, she was placed on IV fluids, moved to [facility] ER and Pt was very combative and confused. Low BP because Versed and multiple other meds were given due to combativeness, so she did have resolution of the hypotension but now we will need social work evaluation, we will discontinue telemetry, we will initiate PT and OT and evaluate what her needs are and her medical problems. Source: RN/MD, old records Exam Limitations: clinical condition Time Seen by a Provider: 09:00 Past Qxrutrl-Esxqzh-Wtxzps Hx Past Med/Social Hx: Reviewed Nursing Past Med/Soc Hx, Reviewed and Corrections made Patient Social History Marrital Status: single Smoking Status: Unknown if Ever Smoked Family History Patient reports no known family medical history. Review of Systems Constitutional: see HPI Physical Exam Physical Exam General Appearance: Mild Distress Respiratory: Lungs Clear Cardiovascular: Regular Rate, Rhythm Neurologic/Psychiatric: Alert, Disoriented Assessment/Plan Admission Diagnosis Assessment: Altered mental status due to metabolic encephalopathy Acute renal failure Diabetes mellitus Hypokalemia Hypotension due to meds Agitation with aggression requiring chemical restraints Restless leg syndrome Neuropathy Hypertension Elevated liver enzymes Plan: Abdominal ultrasound Supportive care IV fluids Chemical restraints as needed May need psych eval Fall risk Admission Status: Inpatient Order (span 2 midnights) Reason for Inpatient Admission: Severe delirium with ARF and UTI Diagnosis/Problems Diagnosis/Problems (1) Encephalopathy (2) Renal failure (3) Diabetes mellitus (4) RLS (restless legs syndrome) (5) Neuropathy (6) Aggression (7) Risk for falls (8) Confusion Status: Acute (9) Acute kidney injury (nontraumatic) Status: Acute (10) Cystitis without hematuria Status: Acute Supervisory-Addendum Brief Verification & Attestation Participated in pt care: history, MDM, physical Personally performed: exam, history, MDM, supervision of care Care discussed with: Medical Student Procedures: n/a Results interpretation: Verified all documentation Verification and Attestation of Medical Student E/M Service A medical student performed and documented this service in my presence. I reviewed and verified all information documented by the medical student and made modifications to such information, when appropriate. I personally performed the physical exam and medical decision making. Yen Whyte, Jul 12, 2019,19:27 [facility] Jul 12, 2019 11:34 YEN WASHINGTON DO Jul 12, 2019 19:27 POS
[2019-07-12] MEDS ORDERED: HYDROcodone/APAP 10 MG/325 MG (LORTAB) TAB PO ONE ×2 (11:51→12:55)
[2019-07-12 12:00] VITALS: BP 112/16
--- NOTE | 2019-07-12 12:15 | Physical Therapy Evaluation ---
PT Evaluation-General Medical Diagnosis Admission Date Jul 11, 2019 at 21:07 Medical Diagnosis: cystitis without hematuria Onset Date: Jul 11, 2019 Therapy Diagnosis Therapy Diagnosis: weakness Height/Weight Height (Feet): 5 Height (Inches): 1.00 Weight (Pounds): 210 Precautions Precautions/Isolations: Fall Prevention, Standard Precautions, Pressure Ulcer Referral Physician: Sean Reason for Referral: Evaluation/Treatment Medical History Pertinent Medical History: DM, HTN, Neuropathy Current History EMS from home called by friend secondary to confusion Reviewed History: Yes Social History Home: Single Level Current Living Status: Alone Prior Prior Level of Function SCALE: Activities may be completed with or without assistive devices. 0-Pittbqzvmx-ftgrqtd completes the activity by him/herself with no assistance from a helper. 5-Set-up or Clean-up Assistance-helper sets up or cleans up; patient completes activity. Denbo assists only prior to or following the activity. 4-Supervision or Touching Assistance-helper provides verbal cues and/or touchi ng/steadying and/or contact guard assistance as patient completes activity. Assistance may be provided throughout the activity or intermittently. 3-Partial/Moderate Assistance-helper does LESS THAN HALF the effort. Denbo lifts, holds or supports trunk or limbs, but provides less than half the effort. 2-Substantial/Maximal Assistance-helper does MORE THAN HALF the effort. Denbo lifts or holds trunk or limbs and provides more than half the effort. 0-Zjhmtdcns-ffsayv does ALL the effort. Patient does none of the effort to complete the activity. Or, the assistance of 2 or more helpers is required for the patient to complete the activity. If activity was not attempted, code reason: 7-Patient Refused. 9-Not Applicable-not attempted and the patient did not perform the activity before the current illness, exacerbation or injury. 10-Not Attempted due to Environmental Limitations-(lack of equipment, weather restraints, etc.). 88-Not Attempted due to Medical Conditions or Safety Concerns. Bed Mobility: 6 Transfers (B,C,W/C): 6 Gait: 6 Indoor Mobility (Ambulation): Independent Prior Devices Use: Walker, Other-see list below Prior Device Use: cane PT Evaluation-Current Subjective Patient reluctantly agrees to PT. Patient is not interested in therapy and repeatedly states "I just want to go home." Patient must be distracted in order to participate and is impulsive in movements. States she walks with either a cane or walker, depending on the day, and states she lives at home alone. Pain Numeric Pain Scale: 4 Location Body Site: Foot (and knees) Pain Description: Ache Comment: BLE Objective Patient Orientation: Normal For Age Attachments: IV ROM/Strength ROM Lower Extremities WFL Strength Lower Extremities Grossly 3/5 Integumentary/Posture Integumentary See nursing notes Bowel Incontinence: No Bladder Incontinence: No Posture forward lean on walker Sensory Vision: Functional Hearing: Functional Transfers Roll Left to Right (QC): 6 Sit to Lying (QC): 6 Lying to Sitting/Side of Bed(Q: 6 Sit to Stand (QC): 4 Chair/Lzn-vs-Ezaal Xfer(QC): 4 Car Transfer (QC): 10 Independent in bed mobility; SBA-CGA for safety with transfers, impulsive Gait Does the Patient Walk?: Yes Mode of Locomotion: Walk Anticipated Mode of Locomotion: Walk Walk 10 feet (QC): 4 Walk 50 ft with 2 Turns(QC): 4 Walk 150 ft (QC): 4 Walking 10ft/uneven surface-QC: 88 Distance: 150' Gait Assistive Device: FWW Comments/Gait Description Impulsive, unsteady Wheelchair Training Does the Pt Use a Wheelchair?: No Wheel 50 ft with 2 turns (QC): 9 Wheel 150 ft (QC): 9 Type of Wheelchair: Manual Stairs 1 Step (curb) (QC): 88 4 Steps (QC): 88 12 Steps (QC): 88 Balance Sitting Static: Normal Sitting Dynamic: Normal Standing Static: Fair Standing Dynamic: Fair Picking up an Object (QC): 88 Assessment/Needs Patient reluctant to participate in therapy initially. Prior to tx, patient was not wearing O2 nasal cannula. Patient independent in bed mobility but required CGA-SBA with standing and transfers for safety d/t impulsivity of patient. Patient able to ambulate 150' with FWW with min assist, requiring guidance for walker and demonstrating difficulty with maneuverability. Patient returned to room, seated in recliner. O2 sats at 91-92% after ambulation and nasal cannula replaced on patient at 3L O2. Rehab Potential: Fair PT Felt Hat Steamer Goals Alf Goals PT Felt Hat Steamer Goals Time Frame: Jul 23, 2019 Roll Left & Right (QC): 6 Sit to Lying (QC): 6 Lying-Sitting on Side/Bed(QC): 6 Sit to Stand (QC): 6 Chair/Ajt-tk-Fthea Xfer(QC): 6 Toilet Transfer (QC): 6 Car Transfer (QC): 6 Does the Patient Walk: Yes Walk 10 feet (QC): 6 Walk 50ft with 2 Turns (QC): 6 Walk 150 ft (QC): 6 Walking 10ft on Uneven Surface: 6 1 Step (curb) (QC): 6 4 Steps (QC): 9 12 Steps (QC): 9 Picking up an Object (QC): 6 Does the Pt use WC or Scooter?: No Type: N/A Type: N/A PT Plan Problem List Problem List: Activity Tolerance, Functional Strength, Safety, Balance, Gait, Transfer, Bed Mobility Treatment/Plan Treatment Plan: Continue Plan of Care Treatment Plan: Bed Mobility, Education, Functional Activity Yohan, Functional Strength, Gait, Safety, Therapeutic Exercise, Transfers Treatment Duration: Jul 23, 2019 Frequency: 6 times per week Estimated Hrs Per Day: .25 hour per day Patient and/or Family Agrees t: Yes Time/GCodes Time In: 1128 Time Out: 1143 Total Billed Treatment Time: 15 Total Billed Treatment 1 visit EVLowC 15min JENIFER MCCAIN PT Jul 12, 2019 12:15 POS
--- NOTE | 2019-07-12 12:35 | Diagnostic Imaging Report ---
PROCEDURE: US Abdomen, limited. TECHNIQUE: Multiple realtime grayscale images were obtained over the abdomen in various projections. INDICATION: Elevated liver function studies. COMPARISON: Study correlated with CT of 01/01/2019. FINDINGS: The liver parenchyma shows features of mild fatty infiltration, not appreciably changed when correlated with earlier CT. Calcification in the right hepatic lobe of just over 1 cm is also unchanged. The gallbladder is surgically absent. No pathological distention of the intrahepatic bile ducts. Much of the extrahepatic duct was obscured by overlying gas. Pancreas is obscured by gas. No ascites. The unobstructed right kidney appeared normal. IMPRESSION: Chronic benign calcification in the right hepatic lobe. Borderline mild hepatic steatosis. No intrahepatic biliary dilatation. No ascites, fluid collection, or acute finding apparent. Dictated by: Dictated on workstation # [id number]
[2019-07-12] MEDS ORDERED: HALOPERIDOL 5 MG/ML (HALDOL) AMP ONE (13:03)
[2019-07-12] MEDS ORDERED: HALOPERIDOL 5 MG/ML (HALDOL) AMP IM PRN (13:15)
--- NOTE | 2019-07-12 13:34 | Occupational Therapy Eval ---
OT Evaluation-General/PLF Medical Diagnosis Admission Date Jul 11, 2019 at 21:07 Medical Diagnosis: cystitis without hematuria Onset Date: Jul 11, 2019 Therapy Diagnosis Therapy Diagnosis: Decreased ADL status Height/Weight Height (Feet): 5 Height (Inches): 1.00 Weight (Pounds): 210 Precautions Precautions/Isolations: Fall Prevention, Standard Precautions, Pressure Ulcer Safety Interventions: Bed Exit Alarm (chair alarm ) Referral Physician: Sean Referral Reason: Activity Tolerance, Self Care, Evaluation/Treatment, Strengthening/ROM Medical History Pertinent Medical History: DM, HTN, Neuropathy Additional Medical History cystitis without hematuria, acute kidney injury, confusion, UTI Current History PHHx: HTN, neuropathy, diverticulitis, hiatal hernia, IB, DM, anxiety/ depression Reviewed History: Yes Social History Home: Single Level Current Living Status: Alone ADL-Prior Level of Function SCALE: Activities may be completed with or without assistive devices. 9-Qqjjkkjqdw-xllxtad completes the activity by him/herself with no assistance from a helper. 5-Set-up or Clean-up Assistance-helper sets up or cleans up; patient completes activity. Chula assists only prior to or following the activity. 4-Supervision or Touching Assistance-helper provides verbal cues and/or touching/steadying and/or contact guard assistance as patient completes activity. Assistance may be provided throughout the activity or intermittently. 3-Partial/Moderate Assistance-helper does LESS THAN HALF the effort. Ch[place] lifts, holds or supports trunk or limbs, but provides less than half the effort. 2-Substantial/Maximal Assistance-helper does MORE THAN HALF the effort. [place] lifts or holds trunk or limbs and provides more than half the effort. 9-Pyodljwnt-dhffro does ALL the effort. Patient does none of the effort to complete the activity. Or, the assistance of 2 or more helpers is required for the patient to complete the activity. If activity was not attempted, code reason: 7-Patient Refused. 9-Not Applicable-not attempted and the patient did not perform the activity before the current illness, exacerbation or injury. 10-Not Attempted due to Environmental Limitations-(lack of equipment, weather restraints, etc.). 88-Not Attempted due to Medical Conditions or Safety Concerns. ADL PLOF Comments Pt states she used walker prior. Pt gives minimal information through evaluation, info based on PT evaluation and chart review. Self Care: Independent Functional Cognition: Independent OT Current Status Subjective Pt seen in recliner chair, pt rubbing/ holding R arm. Pt oriented to person only, answers some questions and requires cues for remembering previous questions. Pt states she wants to go home; pt educated of OT role and desire to keep her safe and maintain safety at home so she does not return to hospital upon d/c. Pt able to be redirected for questioning and then again states she wants to go home. Mental Status/Objective Patient Orientation: Person Per practical nursing faculty: pt refuses 02 use. Per nursing: pt took out IV. Current Glasses/Contacts: Yes Hearing Aids: No Dentures/Partials: No Upper Extremity ROM WFL- pt seen moving arms and attempting to rip off bracelets. Upper Extremity Coordination WFL Upper Extremity Sensation could not assess Upper Extremity Strength WFL ADL-Treatment Eating (QC): 07 Oral Hygiene (QC): 07 Shower/Bathe Self (QC): 07 Upper Body Dressing (QC): 07 Lower Body Dressing (QC): 07 On/Off Footwear (QC): 7 Toileting Hygiene (QC): 7 Toilet Transfer (QC): 4 (SUP- pt seen in bathroom, completes sitting on shower chair and getting up with SUP. Pt unsafe but self directing.) Other Treatments Pt seen in recliner chair, does not rate or state pain. Pt oriented to person only, pt does not know what city or why in hospital. Pt states she wants to go home, sit to stand and chair alarm goes off. Pt redirected to chair and safety, redirected to evaluation and safety needed at home to stay home. Pt states she lives with friend, upon further evaluation pt states her friend has nothing to do with her and that she lives alone. Pt denies paresthesias, states she is safe at home, states she does not complete any exercises at home. Pt refuses to complete UE movements, states, "Why." Pt educated on role of acute OT and therapy, requiring OT to see how strong pt is. Pt stares at TV. Pt redirected to things pt does throughout day; upon further evaluation questions pt states she just wants to go home and she does not want to speak to OT. Therapist leaves room, pt in recliner chair, chair alarm on. OT speaks with practical nursing faculty in hallway of pt's level of function due to denial, pt's chair alarm goes off and OT/ practical nursing faculty enter with pt up in room gathering items stating she is going home. Pt goes to hallway, able to be redirected to bathroom where pt handed pants and encouraged to sit on toilet or shower chair. Pt attempts to take bracelets from wrist, pt struggles and CHERYL goes backward, able to recenter self without AE or CGA. Nursing states IV is no longer connected, nursing notified of pt's rubbing R arm as OT entered room. Pt goes to shower bench, pt left with practical nursing faculty and nursing end of session due to increased frustration of pt and increased support for situation. Education OT Patient Education: Purpose of tx/functional activities, Rehab process, Safety issues Teaching Recipient: Patient Teaching Methods: Discussion Response to Teaching: Unable to Return Demonstration, Unable to Comprehend, Reinforcement Needed OT Accounting Machine Servicer Goals Penitentiary Goals Time Frame: Jul 19, 2019 Eating (QC): 6 Oral Hygiene (QC): 6 Toileting Hygiene (QC): 6 Shower/Bathe Self (QC): 6 Upper Body Dressing (QC): 6 Lower Body Dressing (QC): 6 On/Off Footwear (QC): 6 Additional Goals: 1-Demonstrate ADL Tasks, 2-Verbalize Understanding, 3- ImproveStrength/Yohan 1=Demonstrate adherence to instructed precautions during ADL tasks. 2=Patient will verbalize/demonstrate understanding of assistive devices/m odifications for ADL. 3=Patient will improve strength/tolerance for activity to enable patient to perform ADL's. OT Education/Plan Problem List/Assessment Assessment: Decreased Safety Aware, Impaired Cognition, Impaired Funct Balance, Impaired I ADL's, Impaired Self-Care Skills Discharge Recommendations Plan/Recommendations: Continue POC Patient/Family Goals "I want to go home." Treatment Plan/Plan of Care Treatment,Training & Education: Yes Patient would benefit from OT for education, treatment and training to promote independence in ADL's, mobility, safety and/or upper extremity function for ADL's. Plan of Care: ADL Retraining, Functional Mobility, UE Funct Exercise/Act Treatment Duration: Jul 19, 2019 Frequency: 5 times per week Estimated Hrs Per Day: .25 hour per day Agreement: Yes Rehab Potential: Guarded Time/GCodes Start Time: 12:42 Stop Time: 12:51 Total Time Billed (hr/min): 9 Billed Treatment Time 1, EVM (9) KATIE DE PAZ OTR Jul 12, 2019 13:33 POS
[2019-07-12] MEDS ORDERED: GABA800T10 PO (13:38)
[2019-07-12] MEDS ORDERED: DICL75TA2 PO (13:38)
[2019-07-12] MEDS ORDERED: FLUT16SP22 NS (13:38)
[2019-07-12] MEDS ORDERED: DIAZ5TAB3 PO (13:38)
[2019-07-12] MEDS ORDERED: OXYB5TAB PO (13:38)
[2019-07-12] MEDS ORDERED: HYDR-3820 PO (13:38)
[2019-07-12] MEDS ORDERED: METF-399 PO (13:38)
[2019-07-12] MEDS ORDERED: ROPI0.5T2 PO (13:38)
[2019-07-12] MEDS ORDERED: ERGO50006 PO (13:50)
[2019-07-12] MEDS ORDERED: CHLO473M PO (13:50)
[2019-07-12] MEDS ORDERED: LISI-552 PO (13:50)
[2019-07-12] MEDS ORDERED: DICY10CA12 PO (13:50)
[2019-07-12] MEDS ORDERED: DULO60CA59 PO (13:50)
[2019-07-12] MEDS ORDERED: AMMO225L5 TOP (14:22)
[2019-07-12] MEDS ORDERED: SODI22SP NSEACH (14:32)
[2019-07-12] MEDS ORDERED: PROM25TA14 PO (14:32)
[2019-07-12] MEDS ORDERED: SIME125C PO (14:32)
[2019-07-12] MEDS ORDERED: FAMO20TA5 PO (14:32)
[2019-07-12] MEDS ORDERED: GABA-486 PO (14:32)
[2019-07-12] MEDS ORDERED: CYAN-41 PO (14:32)
[2019-07-12] MEDS ORDERED: POLY17PO6 PO (14:32)
[2019-07-12] MEDS ORDERED: LUTE20TA PO (14:32)
[2019-07-12] MEDS ORDERED: FOLI1TAB24 PO (14:32)
[2019-07-12] MEDS ORDERED: ATOR20TA66 PO (14:32)
--- NOTE | 2019-07-12 14:33 | NUR ---
UNABLE TO SPEAK WITH THE PATIENT ABOUT HER MEDICATIONS AT THIS TIME. I HAD A LIST FAXED OVER FROM [facility] AND UPDATED THE MED REC WITH THAT LIST. I COMPARED THE LIST WITH THE EXT MED HX AND NOTED PAST DUE FILL DATES. THE LIST FROM [facility] HAD VITAMIN D2 WEEKLY BUT IT WAS MARKED NOT TAKING. I ADDED IT TO THE MED REC AT THIS TIME BECAUSE IT WAS DISPENSED FROM [facility] ON THE AND DELIVERED TO THE PATIENT. GABAPENTIN WAS LISTED ON THE LIST TWICE. 100MG HS AND 800MG QID. HE 800MG QID WAS RECENTLY FILLED AT [facility], THE GABAPENTIN 100MG WAS LAST FILLED #270 FOR 90 DAYS WITH TID DIRECTIONS 03-04-19. I ENTERED IT HS ALONG WITH THE 800MG QID LIKE THE LIST FROM [facility] HAS REPORTED. I DID NOT INCLUDE THE MUPIROCIN OINTMENT TO BE USED NASALLY BID, IT WAS LAST FILLED 09-27-18. PAST DUE MEDS: 03-27-19 LISINOPRIL 20MG DAILY #90 03-24-19 DICYCLOMINE 10MG QID #360 03-21-19 CYMBALTA 60MG #90 12-31-18 ATORVASTATIN 20MG DAILY #90 12-31-18 FAMOTIDINE 20MG BID #180 OTC MEDS REPORTED ON LIST FROM [facility]: VITAMIN B12 1000MCG DAILY MIRALAX 17GM DAILY LUTEIN 20MG DAILY GAS X 125MG CAP PCHS PRN AYR NASAL 2 SPRAYS EACH NOSTRIL Q2H PRN Addendum: 07/12/19 at 1438 by CLEO BUSTAMANTE [facility] FILLED VITAMIN D2 50,000 UNITS #4 07-08-19 AND DELIVERED IT TO THE PATIENT.
[2019-07-12] MEDS ORDERED: cefTRIAXone FOR IV USE 1,000 MG in WATER (STERILE) FOR INJECTION 10 ML IV SCH (15:45)
--- NOTE | 2019-07-12 16:00 | NUR ---
REFUSED 1600 VITAL SIGNS.
[2019-07-12] MEDS ORDERED: LIDOCAINE 1% INJ 20 ML 20 ML VIAL INJ SCH (16:15)
[2019-07-12] MEDS ORDERED: cefTRIAXone 1,000 MG/2.86 ml vial (IM ONLY) IM SCH (16:15)
[2019-07-12] MEDS: LORazepam INJ 2 MG/ML (ATIVAN) VIAL IVP PRN (17:43)
[2019-07-12] MEDS: cefTRIAXone FOR IV USE 1,000 MG in WATER (STERILE) FOR INJECTION 10 ML IV SCH (17:45)
[2019-07-12] MEDS ORDERED: cefTRIAXone 1,000 MG/SWFI 10 ML IV PUSH IV SCH ×2 (18:00)
[2019-07-12] MEDS ORDERED: CATHETER FLUSH 10 ML SYR IV PRN (18:00)
[2019-07-12] MEDS ORDERED: PROMETHAZINE 25 MG (PHENERGAN) TAB PO PRN (19:30)
[2019-07-12] MEDS ORDERED: [UNRECOGNIZED DRUG - OTHER] NSEACH PRN (19:30)
[2019-07-12] MEDS ORDERED: ALOE VERA NSEACH PRN (19:30)
[2019-07-12] MEDS ORDERED: HYDROcodone/APAP 10 MG/325 MG (LORTAB) TAB PO PRN (19:30)
[2019-07-12] MEDS ORDERED: CHLORHEXIDINE 0.12% SOLN 15 ML (PERIDEX) UDC PO PRN (19:30)
[2019-07-12] MEDS ORDERED: NON-FORMULARY MEDICATION 1 EA EA (Simethicone (Gas-X) 125 MG) PO PRN (19:30)
[2019-07-12] MEDS ORDERED: SODIUM CHLORIDE NSEACH PRN (19:30)
[2019-07-12] MEDS ORDERED: NON-FORMULARY MEDICATION 1 EA EA (Diazepam 5 MG) PO PRN (19:30)
[2019-07-12] MEDS ORDERED: SIMETHICONE 80 MG (MYLICON) CHEW PO PRN (19:45)
[2019-07-12] MEDS ORDERED: SALINE NASAL SPRAY (OCEAN) 45 ML BTL PRN (19:45)
[2019-07-12 19:52] VITALS: BP 119/61
[2019-07-12] MEDS: OXYBUTYNIN (DITROPAN) 5 MG TAB PO SCH (20:38)
[2019-07-12] MEDS: CATHETER FLUSH 10 ML SYR IV SCH (20:38)
[2019-07-12] MEDS: FAMOTIDINE 20 MG (PEPCID) TABLET PO SCH (20:38)
[2019-07-12] MEDS: POLYETHYLENE GLYCOL 17 GM (MIRALAX) PACK PO SCH (20:38)
[2019-07-12] MEDS: GABAPENTIN 400 MG (NEURONTIN) CAP PO SCH (20:38)
[2019-07-12] MEDS: DICYCLOMINE 10 MG (BENTYL) CAP PO SCH (20:38)
[2019-07-12] MEDS ORDERED: NON-FORMULARY MEDICATION 1 EA EA (Gabapentin 800 MG) PO SCH (21:00)
[2019-07-12] MEDS ORDERED: GABAPENTIN 100 MG (NEURONTIN) CAP PO SCH (21:00)
[2019-07-12] MEDS ORDERED: NON-FORMULARY MEDICATION 1 EA EA (Famotidine 20 MG) PO SCH (21:00)
[2019-07-12] MEDS ORDERED: OXYBUTYNIN ER 5 MG (DITROPAN XL) TAB NON-FORMULARY PO SCH (21:00)
[2019-07-12] MEDS: DIAZEPAM 5 MG (VALIUM) TABLET PO PRN (22:31)
[2019-07-12 23:09] VITALS: BP 116/66
[2019-07-13 03:55] VITALS: BP 123/58
[2019-07-13] MEDS: CATHETER FLUSH 10 ML SYR IV SCH ×3 (04:58→20:16)
[2019-07-13] MEDS: LORazepam INJ 2 MG/ML (ATIVAN) VIAL IVP PRN (05:33)
[2019-07-13 05:41] LABS: BASOPHILS % (AUTO) 0 % (0-10); EOSINOPHILS # (AUTO) 0.2 10^3/uL (0.0-0.3); EOSINOPHILS % (AUTO) 4 % (0-10); HEMATOCRIT 32 % (35-52); HEMOGLOBIN 9.9 G/DL (11.5-16.0); LYMPHOCYTES # (AUTO) 0.8 X 10^3 (1.0-4.0); LYMPHOCYTES % (AUTO) 22 % (12-44); MEAN CORPUSCULAR HEMOGLOBIN 30 PG (25-34); MEAN CORPUSCULAR HGB CONC 31 G/DL (32-36); MEAN CORPUSCULAR VOLUME 95 FL (80-99); MEAN PLATELET VOLUME 11.7 FL (7.4-10.4); MONOCYTES # (AUTO) 0.3 X 10^3 (0.0-1.0); MONOCYTES % (AUTO) 9 % (0-12); NEUTROPHILS # (AUTO) 2.6 X 10^3 (1.8-7.8); NEUTROPHILS % (AUTO) 66 % (42-75); PLATELET COUNT 166 10^3/uL (130-400); RED CELL DISTRIBUTION WIDTH 13.1 % (10.0-14.5); WHITE BLOOD COUNT 3.9 10^3/uL (4.3-11.0)
[2019-07-13 06:16] LABS: ALANINE AMINOTRANSFERASE 79 U/L (0-55); ALBUMIN 3.3 GM/DL (3.2-4.5); ALKALINE PHOSPHATASE 83 U/L (40-136); BILIRUBIN,TOTAL 0.3 MG/DL (0.1-1.0); BUN/CREATININE RATIO 25; CALCIUM 8.7 MG/DL (8.5-10.1); CARBON DIOXIDE 23 MMOL/L (21-32); CHLORIDE 112 MMOL/L (98-107); CREATININE SERUM 0.71 MG/DL (0.60-1.30); GFR ESTIMATED > 60; GLUCOSE 123 MG/DL (70-105); POTASSIUM 4.8 MMOL/L (3.6-5.0); SODIUM 144 MMOL/L (135-145); TOTAL PROTEIN 5.3 GM/DL (6.4-8.2)
[2019-07-13 08:30] VITALS: BP 137/74
--- NOTE | 2019-07-13 08:50 | Progress Note - Hospitalist ---
[facility] 07/13/19 0850: Subjective HPI/CC On Admission Date Seen by Provider: Jul 13, 2019 Chief complaint: Altered mental status HPI: This is a 68yoWF who apparently moved from [place] recently, lives alone and unclear of any medical details from the Pt. Pt presented to the [place] ER with confusion and Pt was found to have a UTI and acute renal failure, she was placed on IV fluids, moved to [facility] ER and Pt was very combative and confused. Low BP because Versed and multiple other meds were given due to combativeness, so she did have resolution of the hypotension but now we will need social work evaluation, we will discontinue telemetry, we will initiate PT and OT and evaluate what her needs are and her medical problems. Subjective/Events-last exam Pt was sleeping upon first visit to the room and did not want to wake up or respond to questions Upon returning to check in the patient was seen trying to enter another pt's room getting agitated with the nursing staff trying to redirect her into her own room next door She was able to be re-directed into her room where she was still somewhat agitated but respond to questions She was more clear in her thinking today, but wanted to be left alone and sent home She was able to states he had diabetes and hypertension for which she takes medications at home She was still not able to respond to all questions with clear answers and became confused at times She is overall improved, but still has significant cognitive impairment unsure if chronic or related to her UTI Review of Systems General: No Chills HEENT: No Head Aches, No Visual Changes Pulmonary: No Dyspnea, No Cough Cardiovascular: No: Chest Pain, Palpitations, Edema Gastrointestinal: No: Nausea, Vomiting, Abdominal Pain, Diarrhea, Constipation Genitourinary: No Dysuria, No Incontinence Neurological: Confusion; No: Weakness, Numbness Objective Exam Vital Signs Vital Signs Date Time Temp Pulse Resp B/P (MAP) Pulse Ox O2 Delivery O2 Flow Rate FiO2 07/13/19 08:30 36.0 89 18 137/74 (95) 94 Room Air 07/13/19 03:55 0.00 Capillary Refill : Less Than 3 Seconds General Appearance: Chronically ill, Mild Distress Respiratory: Chest Non Tender, Lungs Clear, Normal Breath Sounds, No Accessory Muscle Use, No Respiratory Distress Cardiovascular: Regular Rate, Rhythm, No Edema, No Murmur, Normal Peripheral Pulses Extremity: No Pedal Edema, Calf Tenderness (Mild bilateral pain) Neurologic/Psychiatric: Alert, No Motor/Sensory Deficits, Other (Confusion, Agitation) Skin: Normal Color, Warm/Dry Results/Procedures Lab Laboratory Tests 07/13/19 05:25 Patient resulted labs reviewed. Assessment/Plan Assessment and Plan Assess & Plan/Chief Complaint Assessment: UTI Agitation Opioid use Benzodiazepine use Disorientation/Confusion Elevated Liver enzymes Renal Insufficiency Plan: Antibiotics (Ceftriaxone) Monitor for withdrawal symptoms Monitor Liver enzymes Haloperidol for agitation Behavioral Health consult, likely will need senior behavioral health unit Social work consult to find out about DPOA and resources IV fluids Monitor kidney function Clinical Quality Measures DVT/VTE Risk/Contraindication: Risk Factor Score Per Nursin RFS Level Per Nursing on Admit: 4+=Very High EYN WHYTE DO 07/13/192038: Subjective HPI/CC On Admission Time Seen by Provider: 09:00 Subjective/Events-last exam Delirium is slowly clearing Creatinine 0.7 Ripped her IV out yesterday and has not agreed for us to replace but she is doing well Trying to secure DPOA orders Social work consult on board No pain is reported Pt is ambulating around well but no safe to go home until her ability to return to a secure place is secured Review of Systems General: Fatigue Neurological: Confusion Objective Exam General Appearance: No Apparent Distress, WD/WN Respiratory: Lungs Clear Cardiovascular: Regular Rate, Rhythm Neurologic/Psychiatric: Alert, Disoriented Assessment/Plan Assessment and Plan Assess & Plan/Chief Complaint DPOA Psych treatment? Supportive care Diagnosis/Problems Diagnosis/Problems (1) Encephalopathy (2) Diabetes mellitus (3) Confusion Status: Acute (4) Neuropathy (5) Renal failure (6) Aggression (7) RLS (restless legs syndrome) (8) Acute kidney injury (nontraumatic) Status: Acute (9) Cystitis without hematuria Status: Acute (10) Risk for falls Supervisory-Addendum Brief Verification & Attestation Participated in pt care: history, MDM, physical Personally performed: exam, history, MDM, supervision of care Care discussed with: Medical Student Procedures: n/a Results interpretation: Verified all documentation Verification and Attestation of Medical Student E/M Service A medical student performed and documented this service in my presence. I reviewed and verified all information documented by the medical student and made modifications to such information, when appropriate. I personally performed the physical exam and medical decision making. Yen Whyte, Jul 13, 2019,20:39 [facility] Jul 13, 2019 08:50 YEN WASHINGTON DO Jul 13, 2019 20:39 POS
[2019-07-13] MEDS: ENOXAPARIN 40 MG/0.4 ML (LOVENOX) SYR SC SCH (08:58)
[2019-07-13] MEDS: FLUTICASONE NASAL SPRAY (FLONASE) 16 GM BTL NS SCH (08:59)
[2019-07-13] MEDS: GABAPENTIN 400 MG (NEURONTIN) CAP PO SCH ×4 (08:59→20:17)
[2019-07-13] MEDS: DICYCLOMINE 10 MG (BENTYL) CAP PO SCH ×4 (08:59→20:18)
[2019-07-13] MEDS ORDERED: NON-FORMULARY MEDICATION 1 EA EA (Polyethylene Glycol 3350 (Miralax) 17 GM) PO SCH (09:00)
[2019-07-13] MEDS: CYANOCOBALAMIN 1,000 MCG (VITAMIN B-12) TABLET PO SCH (09:00)
[2019-07-13] MEDS ORDERED: NON-FORMULARY MEDICATION 1 EA EA (Duloxetine HCl 60 MG) PO SCH (09:00)
[2019-07-13] MEDS: OXYBUTYNIN (DITROPAN) 5 MG TAB PO SCH ×2 (09:00→21:00)
[2019-07-13] MEDS: FOLIC ACID 1 MG TAB PO SCH (09:00)
[2019-07-13] MEDS ORDERED: NON-FORMULARY MEDICATION 1 EA EA (Lutein 20 MG) PO SCH (09:00)
[2019-07-13] MEDS: DULoxetine 30 MG (CYMBALTA) CAP PO SCH (09:00)
--- NOTE | 2019-07-13 11:37 | Occupational Ther Daily Note ---
OT Current Status-Daily Note Subjective Pt alert, lying in bed. Pt agrees to therapy. Pt does have difficulty with following directions and giving answers. Mental Status/Objective Patient Orientation: Person, Place ADL-Treatment Therapy Code Descriptions/Definitions Functional [place] Measure: 0=Not Assessed/NA 4=Minimal Assistance 1=Total Assistance 5=Supervision or Setup 2=Maximal Assistance 6=Modified [place] 3=Moderate Assistance 7=Complete IndependenceSCALE: Activities may be completed with or without assistive devices. 9-Hqzksclxlx-tltynti completes the activity by him/herself with no assistance from a helper. 5-Set-up or Clean-up Assistance-helper sets up or cleans up; patient completes activity. [place] assists only prior to or following the activity. 4-Supervision or Touching Assistance-helper provides verbal cues and/or touching/steadying and/or contact guard assistance as patient completes activity. Assistance may be provided throughout the activity or intermittently. 3-Partial/Moderate Assistance-helper does LESS THAN HALF the effort. [place] lifts, holds or supports trunk or limbs, but provides less than half the effort. 2-Substantial/Maximal Assistance-helper does MORE THAN HALF the effort. [place] lifts or holds trunk or limbs and provides more than half the effort. 9-Wfjrqtdbx-bnpkxi does ALL the effort. Patient does none of the effort to complete the activity. Or, the assistance of 2 or more helpers is required for the patient to complete the activity. If activity was not attempted, code reason: 7-Patient Refused. 9-Not Applicable-not attempted and the patient did not perform the activity before the current illness, exacerbation or injury. 10-Not Attempted due to Environmental Limitations-(lack of equipment, weather restraints, etc.). 88-Not Attempted due to Medical Conditions or Safety Concerns. Other Treatment Pt agrees to transfer to recliner. Pt completes bed mobility by self and sits EOB independently. Pt able to don/doff socks sitting EOB by bring foot up to bed. Pt required verbal cues with transfer using FWW to stay with walker and reminders to sit in recliner. pt bent over with CGA to berry picker bag. Pt then was able to open own bags to find comb/brush. Pt brushed front and sides of hair but did not reach back of head. After therapy, pt sitting in recliner with safety measures in place. Call light/phone in reach. All needs met in room. OT Leather Etcher Goals Leather Etcher Goals Time Frame: Jul 19, 2019 Eating (QC): 6 Oral Hygiene (QC): 6 Toileting Hygiene (QC): 6 Shower/Bathe Self (QC): 6 Upper Body Dressing (QC): 6 Lower Body Dressing (QC): 6 On/Off Footwear (QC): 6 Additional Goals: 1-Demonstrate ADL Tasks, 2-Verbalize Understanding, 3- ImproveStrength/Yohan 1=Demonstrate adherence to instructed precautions during ADL tasks. 2=Patient will verbalize/demonstrate understanding of assistive devices/modif ications for ADL. 3=Patient will improve strength/tolerance for activity to enable patient to perform ADL's. OT Education/Plan Problem List/Assessment Assessment: Decreased Activ Tolerance, Decreased Safety Aware, Impaired Coordination, Impaired Funct Balance Discharge Recommendations Plan/Recommendations: Continue POC Treatment Plan/Plan of Care Patient would benefit from OT for education, treatment and training to promote independence in ADL's, mobility, safety and/or upper extremity function for ADL's. Plan of Care: ADL Retraining, Functional Mobility, UE Funct Exercise/Act Treatment Duration: Jul 19, 2019 Frequency: 5 times per week Estimated Hrs Per Day: .25 hour per day Agreement: Yes Rehab Potential: Guarded Time/GCodes Start Time: 10:40 Stop Time: 10:59 Total Time Billed (hr/min): 19 Billed Treatment Time 1 visit-FA 1 (19 min) DANIELE STAPLETON Jul 13, 2019 11:37 POS
--- NOTE | 2019-07-13 13:44 | Physical Therapy Daily Note ---
PT Daily Note-Current Subjective Pt reluctant to perform any activities but then agreeable with gentle encouragement. Pt with confusion. Mental Status Patient Orientation: Person, Confused Attachments: [place] Transfers SCALE: Activities may be completed with or without assistive devices. 6-Owhyoauuou-xptxgmi completes the activity by him/herself with no assistance from a helper. 5-Set-up or Clean-up Assistance-helper sets up or cleans up; patient completes activity. [place] assists only prior to or following the activity. 4-Supervision or Touching Assistance-helper provides verbal cues and/or touching/steadying and/or contact guard assistance as patient completes activity. Assistance may be provided throughout the activity or intermittently. 3-Partial/Moderate Assistance-helper does LESS THAN HALF the effort. [place] lifts, holds or supports trunk or limbs, but provides less than half the effort. 2-Substantial/Maximal Assistance-helper does MORE THAN HALF the effort. [place] lifts or holds trunk or limbs and provides more than half the effort. 3-Urvdxjqpp-pkxgam does ALL the effort. Patient does none of the effort to complete the activity. Or, the assistance of 2 or more helpers is required for the patient to complete the activity. If activity was not attempted, code reason: 7-Patient Refused. 9-Not Applicable-not attempted and the patient did not perform the activity b efore the current illness, exacerbation or injury. 10-Not Attempted due to Environmental Limitations-(lack of equipment, weather restraints, etc.). 88-Not Attempted due to Medical Conditions or Safety Concerns. Sit to Stand (QC): 4 (impulsive, tactile and verb inst for hand placement for safety) Gait Training Does the Patient Walk?: Yes Walk 10 feet (QC): 4 Walk 50 ft with 2 Turns(QC): 4 Walk 150 ft (QC): 4 Gait Persons Needed: 1 Gait Assistive Device: FWW path deviation, redirection several times and is easily distracted, fwd flexed posture, occasionally requiring physical assist to maneuver walker due to running into objects when turning head too look in direction she hears conversations or noise Exercises Seated Therapy Exercises: Ankle pumps (10), Sit to stand (5), Long arc quads (10), Hip flexion (10) Seated Reps: 10 (continually requires redirection when performing ex's and reluctant to continue, minimal motions with ROM) Standing: Marching, Mini squats Standing Reps: 10 (continually requires redirection when performing ex's and reluctant to continue, minimal motions with ROM) Treatments education, safety, transfers, gait, toileting, nayely care, strength, balance, activity tolerance, functional mobility Assessment easily distracted, confusion, unsteady, impulsive PT Auto Body Repairman Goals Auto Body Repairman Goals PT [facility] Goals Time Frame: Jul 23, 2019 Roll Left & Right (QC): 6 Sit to Lying (QC): 6 Lying-Sitting on Side/Bed(QC): 6 Sit to Stand (QC): 6 Chair/Tfl-yf-Xlmml Xfer(QC): 6 Toilet Transfer (QC): 6 Car Transfer (QC): 6 Does the Patient Walk: Yes Walk 10 feet (QC): 6 Walk 50ft with 2 Turns (QC): 6 Walk 150 ft (QC): 6 Walking 10ft on Uneven Surface: 6 1 Step (curb) (QC): 6 4 Steps (QC): 9 12 Steps (QC): 9 Picking up an Object (QC): 6 Does the Pt use WC or Scooter?: No Type: N/A Type: N/A PT Plan Treatment/Plan Treatment Plan: Continue Plan of Care Treatment Plan: Bed Mobility, Education, Functional Activity Yohan, Functional Strength, Gait, Safety, Therapeutic Exercise, Transfers Treatment Duration: Jul 23, 2019 Frequency: 6 times per week Estimated Hrs Per Day: .25 hour per day Patient and/or Family Agrees t: Yes Safety Risks/Education Patient Education: Gait Training, Transfer Techniques, Safety Issues Teaching Recipient: Patient Teaching Methods: Demonstration, Discussion Response to Teaching: Return Demonstration, Reinforcement Needed Time/GCodes Time In: 1310 Time Out: 1338 Total Billed Treatment Time: 28 Total Billed Treatment 1 visit, GT x10 min, EX x18 min FREDERIC GRIDER SECTION CHIEF Jul 13, 2019 13:43 POS
--- NOTE | 2019-07-13 14:48 | NUR ---
RD ASSESSMENT PMHx: HTN; DM; diverticulosis; hiatal hernia PT INTERACTION: Pt was awake and pleasant during nutrition assessment. Note pt has AMS, per chart review. Pt states current appetite is "okay" and has been this way for some time. Pt states following a regular diet at home, and currently has no issues with chewing/swallowing food. Note pt has teeth missing, per visual exam. Pt states some recent issues of nausea without emesis. Pt states no recent issues with constipation or diarrhea and last BM was 07/11. Note pt currently on bowel regimen of miralax HS, per chart review. Pt states some recent wt loss, but did not give details to amount lost or timeframe. Note recent 23# wt loss x6mon, per chart review. Pt states current DM management is pretty good and that she keeps her glucose levels around 130. ABNORMAL NUTRITION-RELATED LAB VALUES: Cl 112 (H); glu 123 (H); AST 56 (H); ALT 79 (H); alb 3.1 (L) Est. kcal needs: 2329-7572 kcal | 15-20 kcal/kg Est. Pro needs: 68-84 g Pro | 0.8-1.0 g Pro/kg PES STATEMENT: Inadequate oral intake (NI-2.1) related to loss of appetite | nausea as evidenced by pt interview INTERVENTION: Continue with current diet order of 2000mg Sodium diet. Pt may benefit from nutrition supplementation if PO intake declines. Will continue to follow and reassess as pt needs and status change. MONITOR/EVALUATE: PO Intake; Plan of Care; Hydration Status; Weight Status; Lab Values Beto Wetzel, MS, RD, LD
[2019-07-13 15:27] VITALS: BP 162/98
--- NOTE | 2019-07-13 15:28 | NUR ---
Initial visit: the pt showed me her stuffed animal, a puppy dog that played gentle music. She said her friend brought it to her. The pt is [place]. She demonstrated increased calmness during our visit.
[2019-07-13] MEDS ORDERED: NON-FORMULARY MEDICATION 1 EA EA (Ropinirole HCl 0.5 MG) PO SCH (18:00)
[2019-07-13] MEDS ORDERED: rOPINIRole 0.25 MG (REQUIP) TAB PO SCH (18:00)
[2019-07-13] MEDS: cefTRIAXone FOR IV USE 1,000 MG in WATER (STERILE) FOR INJECTION 10 ML IV SCH (18:05)
[2019-07-13] MEDS: DIAZEPAM 5 MG (VALIUM) TABLET PO PRN (20:18)
[2019-07-13] MEDS: FAMOTIDINE 20 MG (PEPCID) TABLET PO SCH (20:18)
[2019-07-13] MEDS: POLYETHYLENE GLYCOL 17 GM (MIRALAX) PACK PO SCH (20:21)
[2019-07-13 23:35] VITALS: BP_SYST 104; BP_SYST 135; BP_DIAS 60; BP_DIAS 69
[2019-07-14 05:56] LABS: BASOPHILS % (AUTO) 0 % (0-10); EOSINOPHILS # (AUTO) 0.2 10^3/uL (0.0-0.3); EOSINOPHILS % (AUTO) 5 % (0-10); HEMATOCRIT 33 % (35-52); HEMOGLOBIN 10.3 G/DL (11.5-16.0); LYMPHOCYTES # (AUTO) 1.1 X 10^3 (1.0-4.0); LYMPHOCYTES % (AUTO) 25 % (12-44); MEAN CORPUSCULAR HEMOGLOBIN 30 PG (25-34); MEAN CORPUSCULAR HGB CONC 31 G/DL (32-36); MEAN CORPUSCULAR VOLUME 95 FL (80-99); MEAN PLATELET VOLUME 11.9 FL (7.4-10.4); MONOCYTES # (AUTO) 0.5 X 10^3 (0.0-1.0); MONOCYTES % (AUTO) 11 % (0-12); NEUTROPHILS # (AUTO) 2.6 X 10^3 (1.8-7.8); NEUTROPHILS % (AUTO) 60 % (42-75); PLATELET COUNT 174 10^3/uL (130-400); WHITE BLOOD COUNT 4.3 10^3/uL (4.3-11.0)
[2019-07-14] MEDS: CATHETER FLUSH 10 ML SYR IV SCH ×2 (05:56→12:23)
[2019-07-14 06:32] LABS: ALANINE AMINOTRANSFERASE 57 U/L (0-55); ALBUMIN 3.4 GM/DL (3.2-4.5); ALKALINE PHOSPHATASE 83 U/L (40-136); BILIRUBIN,TOTAL 0.3 MG/DL (0.1-1.0); BUN/CREATININE RATIO 14; CARBON DIOXIDE 25 MMOL/L (21-32); CHLORIDE 108 MMOL/L (98-107); CREATININE SERUM 0.71 MG/DL (0.60-1.30); GFR ESTIMATED > 60; GLUCOSE 135 MG/DL (70-105); POTASSIUM 4.3 MMOL/L (3.6-5.0); SODIUM 141 MMOL/L (135-145); TOTAL PROTEIN 5.5 GM/DL (6.4-8.2)
[2019-07-14] MEDS: FOLIC ACID 1 MG TAB PO SCH (08:06)
[2019-07-14] MEDS: CYANOCOBALAMIN 1,000 MCG (VITAMIN B-12) TABLET PO SCH (08:06)
[2019-07-14] MEDS: ENOXAPARIN 40 MG/0.4 ML (LOVENOX) SYR SC SCH (08:06)
[2019-07-14] MEDS: DICYCLOMINE 10 MG (BENTYL) CAP PO SCH ×2 (08:07→12:23)
[2019-07-14] MEDS: OXYBUTYNIN (DITROPAN) 5 MG TAB PO SCH (08:07)
[2019-07-14] MEDS: GABAPENTIN 400 MG (NEURONTIN) CAP PO SCH ×2 (08:07→12:23)
[2019-07-14] MEDS: DULoxetine 30 MG (CYMBALTA) CAP PO SCH (08:07)
[2019-07-14] MEDS: FLUTICASONE NASAL SPRAY (FLONASE) 16 GM BTL NS SCH (08:10)
[2019-07-14 08:34] VITALS: BP 145/92
--- NOTE | 2019-07-14 09:18 | Physical Therapy Daily Note ---
PT Daily Note-Current Subjective Pt just returning to chair from shower with NA in room. Pt agreeable to participate with therapy. Pt conversing, difficult to follow at times. Pt states she is aware she is in the hospital but asks for clarification as to which hospital it is. Mental Status Patient Orientation: Person Transfers SCALE: Activities may be completed with or without assistive devices. 2-Cjavkqlwrd-nhsclfu completes the activity by him/herself with no assistance from a helper. 5-Set-up or Clean-up Assistance-helper sets up or cleans up; patient completes activity. [place] assists only prior to or following the activity. 4-Supervision or Touching Assistance-helper provides verbal cues and/or touching/steadying and/or contact guard assistance as patient completes activity . Assistance may be provided throughout the activity or intermittently. 3-Partial/Moderate Assistance-helper does LESS THAN HALF the effort. [place] lifts, holds or supports trunk or limbs, but provides less than half the effort. 2-Substantial/Maximal Assistance-helper does MORE THAN HALF the effort. [place] lifts or holds trunk or limbs and provides more than half the effort. 1-Khptptvxc-xhctnu does ALL the effort. Patient does none of the effort to complete the activity. Or, the assistance of 2 or more helpers is required for the patient to complete the activity. If activity was not attempted, code reason: 7-Patient Refused. 9-Not Applicable-not attempted and the patient did not perform the activity before the current illness, exacerbation or injury. 10-Not Attempted due to Environmental Limitations-(lack of equipment, weather restraints, etc.). 88-Not Attempted due to Medical Conditions or Safety Concerns. Sit to Stand (QC): 4 Weight Bearing Right Lower Extremity: Right Full Weight Bearing Left Lower Extremity: Left Full Weight Bearing Gait Training Does the Patient Walk?: Yes Distance: 350 Walk 10 feet (QC): 4 Walk 50 ft with 2 Turns(QC): 4 Walk 150 ft (QC): 4 Gait Persons Needed: 1 Gait Assistive Device: FWW Pt ambulated with CGA. Pt occasionally requiring assist, VCS to navigate walker around objects. Decreased safety awareness, especially when (easily) distracted, tends to let go of walker and pathway is all over the hallway. Exercises Seated Therapy Exercises: Long arc quads, Hip flexion Seated Reps: 20 Pt able to don shoes/braces with min A x 1 and VCS. Near constant VCS to continue reps of exercises. Treatments Gait training, LE functional strengthening. Assessment Current Status: Good Progress Improved functional activity tolerance. Requires assistance/supervision for safety currently. PT Senior Living Goals Senior Living Goals PT Litigation Assistant Goals Time Frame: Jul 23, 2019 Roll Left & Right (QC): 6 Sit to Lying (QC): 6 Lying-Sitting on Side/Bed(QC): 6 Sit to Stand (QC): 6 Chair/Rfa-nj-Ohbgc Xfer(QC): 6 Toilet Transfer (QC): 6 Car Transfer (QC): 6 Does the Patient Walk: Yes Walk 10 feet (QC): 6 Walk 50ft with 2 Turns (QC): 6 Walk 150 ft (QC): 6 Walking 10ft on Uneven Surface: 6 1 Step (curb) (QC): 6 4 Steps (QC): 9 12 Steps (QC): 9 Picking up an Object (QC): 6 Does the Pt use WC or Scooter?: No Type: N/A Type: N/A PT Plan Problem List Problem List: Activity Tolerance, Functional Strength, Safety, Balance, Gait, Transfer Treatment/Plan Treatment Plan: Continue Plan of Care Treatment Plan: Bed Mobility, Education, Functional Activity Yohan, Functional Strength, Gait, Safety, Therapeutic Exercise, Transfers Treatment Duration: Jul 23, 2019 Frequency: 6 times per week Estimated Hrs Per Day: .25 hour per day Patient and/or Family Agrees t: Yes Safety Risks/Education Patient Education: Gait Training, Safety Issues Teaching Recipient: Patient Teaching Methods: Discussion Response to Teaching: Reinforcement Needed Time/GCodes Time In: 46 Time Out: 910 Total Billed Treatment Time: 25 Total Billed Treatment 1, Gt x 17', Ex x 10' FARHAD STEWART DPDiana Jul 14, 2019 09:18 POS
[2019-07-14] MEDS ORDERED: CEFD300C3 PO ×2 (10:09→12:56)
--- NOTE | 2019-07-14 11:08 | Discharge Summary ---
JESSICA PICKETT [facility] 07/14/19 1108: Diagnosis/Chief Complaint Date of Admission Jul 11, 2019 at 21:07 Date of Discharge Discharge Date: Jul 14, 2019 Admission Diagnosis Assessment: Altered mental status due to metabolic encephalopathy Acute renal failure Diabetes mellitus Hypokalemia Hypotension due to meds Agitation with aggression requiring chemical restraints Restless leg syndrome Neuropathy Hypertension Elevated liver enzymes Plan: Abdominal ultrasound Supportive care IV fluids Chemical restraints as needed May need psych eval Fall risk Primary Care No,Local Physician Discharge Diagnosis (1) Encephalopathy (2) Diabetes mellitus (3) Confusion Status: Acute (4) Neuropathy (5) Renal failure (6) Aggression (7) RLS (restless legs syndrome) (8) Acute kidney injury (nontraumatic) Status: Acute (9) Cystitis without hematuria Status: Acute (10) Risk for falls Discharge Summary Discharge Physical Exam Allergies: Coded Allergies: aspirin (Unverified Adverse Reaction, Unknown, 01/01/19) Vitals & I&Os Vital Signs Date Time Temp Pulse Resp B/P (MAP) Pulse Ox O2 Delivery O2 Flow Rate FiO2 07/14/19 08:34 36.4 97 18 145/92 (109) 95 Room Air 07/14/19 08:00 0.00 General Appearance: Chronically ill, Mild Distress Respiratory: Chest Non Tender, Lungs Clear, Normal Breath Sounds, No Accessory Muscle Use, No Respiratory Distress Cardiovascular: Regular Rate, Rhythm, No Edema, No Gallop, No Murmur, Normal Peripheral Pulses Extremity: Non Tender, No Calf Tenderness, No Pedal Edema Skin: Normal Color, Warm/Dry Neurologic/Psychiatric: Alert, Normal Mood/Affect, Other (Confusion, Cognitive debility) Hospital Course Pt was admitted from [facility] for AMS and UTI. She was very disoriented and delirious with poor response time, poor historian, and poor comprehension as well as significant agitation. She was treated for the UTI with IV fluids and antibiotics, and required Haloperidol for her agitation. Her delirium improved over the next two days with less disorientation and agitation, but she appears to have some cognitive decline, poor thought process, and memory issues. She would likely benefit from a geriatric behavioral health unit to assess and begin treatment for some of her cognitive issues and was discharged to [facility]. Labs (last 24 hrs) Laboratory Tests 07/14/19 05:47: White Blood Count 4.3, Red Blood Count 3.49L, Hemoglobin 10.3L, Hematocrit 33L, Mean Corpuscular Volume 95, Mean Corpuscular Hemoglobin 30, Mean Corpuscular Hemoglobin Concent 31L, Red Cell Distribution Width 13.0, Platelet Count 174, Mean Platelet Volume 11.9H, Neutrophils (%) (Auto) 60, Lymphocytes (%) (Auto) 25, Monocytes (%) (Auto) 11, Eosinophils (%) (Auto) 5, Basophils (%) (Auto) 0, Neutrophils # (Auto) 2.6, Lymphocytes # (Auto) 1.1, Monocytes # (Auto) 0.5, Eosinophils # (Auto) 0.2, Basophils # (Auto) 0.0, Sodium Level 141, Potassium Level 4.3, Chloride Level 108H, Carbon Dioxide Level 25, Anion Gap 8, Blood Urea Nitrogen 10, Creatinine 0.71, Estimat Glomerular Filtration Rate > 60, BUN/Creatinine Ratio 14, Glucose Level 135H, Calcium Level 9.0, Corrected Calcium 9.5, Total Bilirubin 0.3, Aspartate Amino Transf (AST/SGOT) 24, Alanine Aminotransferase (ALT/SGPT) 57H, Alkaline Phosphatase 83, Total Protein 5.5L, Albumin 3.4 Microbiology 07/11/19 Urine Culture - Final, Complete Escherichia coli Klebsiella variicola Patient resulted labs reviewed. Pending Labs Laboratory Tests 07/14/19 05:47: White Blood Count 4.3, Red Blood Count 3.49, Hemoglobin 10.3, Hematocrit 33, Mean Corpuscular Volume 95, Mean Corpuscular Hemoglobin 30, Mean Corpuscular Hemoglobin Concent 31, Red Cell Distribution Width 13.0, Platelet Count 174, Mean Platelet Volume 11.9, Neutrophils (%) (Auto) 60, Lymphocytes (%) (Auto) 25, Monocytes (%) (Auto) 11, Eosinophils (%) (Auto) 5, Basophils (%) (Auto) 0, Neutrophils # (Auto) 2.6, Lymphocytes # (Auto) 1.1, Monocytes # (Auto) 0.5, Eosinophils # (Auto) 0.2, Basophils # (Auto) 0.0, Sodium Level 141, Potassium Level 4.3, Chloride Level 108, Carbon Dioxide Level 25, Anion Gap 8, Blood Urea Nitrogen 10, Creatinine 0.71, Estimat Glomerular Filtration Rate > 60, BUN/Creatinine Ratio 14, Glucose Level 135, Calcium Level 9.0, Corrected Calcium 9.5, Total Bilirubin 0.3, Aspartate Amino Transf (AST/SGOT) 24, Alanine Aminotransferase (ALT/SGPT) 57, Alkaline Phosphatase 83, Total Protein 5.5, Albumin 3.4 Discharge Home Medications: Active Scripts Active Cefdinir 300 Mg Capsule 300 Mg PO BID 5 Days Reported Folic Acid 1 Mg Tablet 1 Mg PO DAILY UNKNOWN LAST FILL DATE Gabapentin 100 Mg Capsule 100 Mg PO HS Famotidine 20 Mg Tablet 20 Mg PO BID LAST FILLED #180 12-31-18 Vitamin B-12 (Cyanocobalamin (Vitamin B-12)) 1,000 Mcg Tablet 1,000 Mcg PO DAILY Miralax (Polyethylene Glycol 3350) 17 Gm Powd.pack 17 Gm PO DAILY Lutein 20 Mg Tablet 20 Mg PO DAILY Gas-X (Simethicone) 125 Mg Capsule 125 Mg PO PCHS PRN [place] Saline Nasal Gel Backus (Sodium Chloride/Aloe Vera) 22 Ml Backus 2 Sprays NSEACH Q2H PRN Atorvastatin Calcium 20 Mg Tablet 20 Mg PO HS LAST FILLED #90 19 Promethazine Tablet (Promethazine HCl) 25 Mg Tablet 25 Mg PO TID PRN Ammonium Lactate 226 Gm Lotion TOP BID Chlorhexidine Gluconate 473 Ml Mouthwash 5 Ml PO BID PRN Dicyclomine HCl 10 Mg Capsule 10 Mg PO QID LAST FILLED #360 03-24-19 Lisinopril 20 Mg Tablet 20 Mg PO DAILY LAST FILLED #90 03-27-19 Duloxetine HCl 60 Mg Capsule.dr 60 Mg PO DAILY LAST FILLED #90 03-21-19 Vitamin D2 (Ergocalciferol (Vitamin D2)) 50,000 Unit Capsule 50,000 Unit PO WEEK Fluticasone Propionate 16 Gm Backus.susp 2 Sprays NS DAILY Diazepam 5 Mg Tablet 5 Mg PO Q8H PRN Metformin HCl 1,000 Mg Tablet 1,000 Mg PO BID Oxybutynin Chloride ER (Oxybutynin Chloride) 5 Mg Tab.er.24 5 Mg PO BID Gabapentin 800 Mg Tablet 800 Mg PO QID Ropinirole HCl 0.5 Mg Tablet 0.5 Mg PO 1800 Hydrocodon-Acetaminophn 10-325 (Hydrocodone/Acetaminophen) 1 Each Tablet 1 Tab PO QID PRN Diclofenac Sodium 75 Mg Tablet.dr 75 Mg PO DAILY Instructions to patient/family Please see electronic discharge instructions given to patient. Clinical Quality Measures DVT/VTE Risk/Contraindication: Risk Factor Score Per Nursin RFS Level Per Nursing on Admit: 4+=Very High YEN WHYTE DO 07/14/192122: Diagnosis/Chief Complaint Discharge Diagnosis (1) Encephalopathy (2) Diabetes mellitus (3) Neuropathy (4) Renal failure (5) Aggression (6) RLS (restless legs syndrome) (7) Risk for falls Discharge Summary Discharge Physical Exam Allergies: Coded Allergies: aspirin (Unverified Adverse Reaction, Unknown, 01/01/19) General Appearance: No Apparent Distress, WD/WN, Chronically ill Respiratory: Lungs Clear Cardiovascular: Regular Rate, Rhythm Neurologic/Psychiatric: Alert, Disoriented Hospital Course Was the Problem List Reviewed?: Yes Hospital course: Pt had a short hospital course for four days when she was admitted for altered mental status with UTI and acute kidney injury. Pt was placed on IV fluids and supportive care and the delirium improved a great deal but at the day of stability and creatinine returned back to normal, and normal white count, she was deemed in need of psychiatric care for severe dementia and from complete overall confusion could not be sent home in that kind of shape so DPO was contacted, [facility] was consulted and she was discharged in improved condition for psych treatment. Plans changed and DPOA declined psych treatment stating she has a lifelong learning disability and has plenty of support at home and she was DC home with Discussion & Recommendations Discharge Planning: <30 minutes discharge planning Supervisory-Addendum Brief Verification & Attestation Participated in pt care: history, MDM, physical Personally performed: exam, history, MDM, supervision of care Care discussed with: Medical Student Procedures: n/a Results interpretation: Verified all documentation Verification and Attestation of Medical Student E/M Service A medical student performed and documented this service in my presence. I reviewed and verified all information documented by the medical student and made modifications to such information, when appropriate. I personally performed the physical exam and medical decision making. Yen Whyte, Jul 14, 2019,21:24 [facility] Jul 14, 2019 11:08 YEN WASHINGTON DO Jul 14, 2019 21:23 POS
--- NOTE | 2019-07-14 12:27 | NUR ---
Pt was evaluated by Memo Newton, [place] Laboratory Assistant of [facility]. pt acknowledges depression but denies suicidal or homicidal thoughts. Mr. Newton did offer pt possible admission to their Unit but currently she refuses and wants to return home. She is agreeable to Home Health care follow-up and if ordered would choose [facility]. Her neighbor and DPOA will be contacted when discharged and hopefully can provide transport home where she lives independently with community and friend support.
--- NOTE | 2019-07-14 12:55 | D/C HH Face to Face Order ---
D/C Face to Face Orders Reconcile Patient Problems Problems Reviewed?: Yes Instructions for Patient Home Health Patient Instructions/FollowUp: [facility] 1 week Physician to follow Patient: [facility] Discharge Diet for Home: ADA Diet Patient Problems: UTI DELIRIUM Goals for Patient: Return to independence Patient Data-Allergies,Ht & Wt Patient Allergies: Coded Allergies: aspirin (Unverified Adverse Reaction, Unknown, 01/01/19) Height (Feet): 5 Height (Inches): 1.00 Weight (Pounds): 210 Home Health Need/Face to Face Date of Face to Face: Jul 14, 2019 Clinical Findings: Generalized weakness and fatigue, Muscle weakness I have seen Pt ubkq-kh-khir: Yes Discharged To: Home Diagnosis/Conditions: UTI Delirium Patient is Homebound due to: CognItive deficits Homebound Status Due to the above stated illness, injury or surgical procedure (medical condition or diagnosis) and associated clinical findings, the patient is homebound because of his/her inability to leave home except with aid of a supportive device and/or person AND leaving the home requires a considerable and taxing effort or is medically contraindicated. Pt req the following assistanc: [facility] Nursing Orders Home Health Services Order: Nursing Services, [facility] [employer]-Evaluate & Tr eat, Physical Therapy-Evaluate & Treat Home Health Infusion Therapy Line Start Date: Jul 11, 2019 Certify Stmt I certify that this patient is under my care and that I, a nurse practitioner or a physician; a assistant golf coach working with me, had a face to face encounter that - meets the physician face to face encounter requirements with this patient as dated. IJEOMA WHYTE DO Jul 14, 2019 12:55 POS
--- NOTE | 2019-07-14 14:01 | Occupational Ther Daily Note ---
OT Current Status-Daily Note Subjective Pt alert, sitting in recliner. Pt agrees to therapy. Pt states that she is waiting on a call about someone to pick her up because the physician said she was going home today. Mental Status/Objective Patient Orientation: Person, Place, Time ADL-Treatment Per nrsg, pt is up ad barbra in room and completing own toileting. Therapy Code Descriptions/Definitions Functional Meagher Measure: 0=Not Assessed/NA 4=Minimal Assistance 1=Total Assistance 5=Supervision or Setup 2=Maximal Assistance 6=Modified Meagher 3=Moderate Assistance 7=Complete IndependenceSCALE: Activities may be completed with or without assistive devices. 2-Upbqwlovdk-mzluboc completes the activity by him/herself with no assistance from a helper. 5-Set-up or Clean-up Assistance-helper sets up or cleans up; patient completes activity. [place] assists only prior to or following the activity. 4-Supervision or Touching Assistance-helper provides verbal cues and/or touching/steadying and/or contact guard assistance as patient completes activity. Assistance may be provided throughout the activity or intermittently. 3-Partial/Moderate Assistance-helper does LESS THAN HALF the effort. [place] lifts, holds or supports trunk or limbs, but provides less than half the effort. 2-Substantial/Maximal Assistance-helper does MORE THAN HALF the effort. [place] lifts or holds trunk or limbs and provides more than half the effort. 0-Mdtzanqha-ihmytd does ALL the effort. Patient does none of the effort to complete the activity. Or, the assistance of 2 or more helpers is required for the patient to complete the activity. If activity was not attempted, code reason: 7-Patient Refused. 9-Not Applicable-not attempted and the patient did not perform the activity before the current illness, exacerbation or injury. 10-Not Attempted due to Environmental Limitations-(lack of equipment, weather restraints, etc.). 88-Not Attempted due to Medical Conditions or Safety Concerns. Other Treatment UE exercises completed using medium resistance theraband. Pt was able to d emonstrate 2 exercises she knew from previous therapy on L shldr. Skilled instruction for one more exercise to strengthen triceps, pt completed though required verbal cues on technique. Visitor in room at end of session. Call light/phone in reach. All needs met in room. Education OT Patient Education: Exercise program Teaching Recipient: Patient Teaching Methods: Demonstration, Discussion Response to Teaching: Verbalize Understanding, Return Demonstration, Reinforcement Needed OT Steam Table Worker Goals Steam Table Worker Goals Time Frame: Jul 19, 2019 Eating (QC): 6 Oral Hygiene (QC): 6 Toileting Hygiene (QC): 6 Shower/Bathe Self (QC): 6 Upper Body Dressing (QC): 6 Lower Body Dressing (QC): 6 On/Off Footwear (QC): 6 Additional Goals: 1-Demonstrate ADL Tasks, 2-Verbalize Understanding, 3- ImproveStrength/Yohan 1=Demonstrate adherence to instructed precautions during ADL tasks. 2=Patient will verbalize/demonstrate understanding of assistive devices/modifications for ADL. 3=Patient will improve strength/tolerance for activity to enable patient to perform ADL's. OT Education/Plan Problem List/Assessment Assessment: Decreased UE Strength Discharge Recommendations Plan/Recommendations: Continue POC Treatment Plan/Plan of Care Patient would benefit from OT for education, treatment and training to promote independence in ADL's, mobility, safety and/or upper extremity function for ADL's. Plan of Care: ADL Retraining, Functional Mobility, UE Funct Exercise/Act Treatment Duration: Jul 19, 2019 Frequency: 5 times per week Estimated Hrs Per Day: .25 hour per day Agreement: Yes Rehab Potential: Guarded Time/GCodes Start Time: 14:40 Stop Time: 14:55 Total Time Billed (hr/min): 15 Billed Treatment Time 1 visit-EX 1 (15 min) DANIELE STAPLETON Jul 14, 2019 14:01 POS
--- NOTE | 2019-07-14 16:47 | NUR ---
Pt wanting discharged home. Ms. Chowdhury pt's DPOA and friend will be assisting her. Ms Chowdhury thought that Home Health Care would be helpful for patient. Pt given list of area home health care agencies and chose [facility] from [place]. Faxed information to [employer] which did accept pt but stated that they were unable to visit till Thursday the 19 of July. Will advise DPOA.Her phone number is [phone] or cell [phone]
[2019-07-17] MEDS ORDERED: VITAMIN D2 50,000 UNITS (1.25 MG) CAP PO SCH (09:00)
== END 2019-07-14 15:14 | disposition home health service (06) | DRG 682 ==
LOC: EDUNIT# 16:05 → ER FS 16:06 → 4TH 21:07
PROVIDERS: ADMIT Internal Medicine; ATTEND Internal Medicine
DX: N17.9 Acute kidney failure, unspecified (principal); N30.00 Acute cystitis without hematuria; G93.41 Metabolic encephalopathy; E86.0 Dehydration; S00.11XA Contusion of right eyelid and periocular area, initial encounter; E87.6 Hypokalemia; E11.42 Type 2 diabetes mellitus with diabetic polyneuropathy; I12.9 Hypertensive chronic kidney disease with stage 1 through stage 4 chronic kidney disease, or unspecified chronic kidney disease; N18.3 Chronic kidney disease, stage 3 (moderate); I95.2 Hypotension due to drugs; T42.4X5A Adverse effect of benzodiazepines, initial encounter; G25.81 Restless legs syndrome; R74.8 Abnormal levels of other serum enzymes; E66.01 Morbid (severe) obesity due to excess calories; F41.9 Anxiety disorder, unspecified; F32.9 Major depressive disorder, single episode, unspecified; K57.90 Diverticulosis of intestine, part unspecified, without perforation or abscess without bleeding; K58.9 Irritable bowel syndrome, unspecified; M47.9 Spondylosis, unspecified; R29.6 Repeated falls; Z68.36 Body mass index [BMI] 36.0-36.9, adult; W19.XXXA Unspecified fall, initial encounter
CPT/HCPCS: 36415; 51701; 70450; 76705; 80053; 80306; 80320; 80329; 81000; 82140; 85025; 87077; 87088; 87186; 93005; 93041; 96361; 96374

== ENCOUNTER 2019-07-27 13:38 | Inpatient (IN) | payer MEDICARE, MEDICAID ==
[2019-07-27] VITALS (7 sets, daily range): BP systolic 95–149; BP diastolic 51–98
[~2019-07-27] VITALS: Ht 162 cm; Wt 80.5 kg
[~2019-07-27 13:38] MED LIST changes: +AMMO225L5 TOP; +ATOR20TA66 PO; +CEFD300C3 PO; +CHLO473M PO; +CYAN-41 PO; +DIAZ5TAB3 PO; +DICL75TA2 PO; +DICY10CA12 PO; +DULO60CA59 PO; +ERGO50006 PO; +FAMO20TA5 PO; +FLUT16SP22 NS; +FOLI1TAB24 PO; +GABA-486 PO; +GABA800T10 PO; +HYDR-3820 PO; +LISI-552 PO; +LUTE20TA PO; +METF-399 PO; +OXYB5TAB PO; +POLY17PO6 PO; +PROM25TA14 PO; +ROPI0.5T2 PO; +SIME125C PO; +SODI22SP NSEACH
--- NOTE | 2019-07-27 14:00 | NUR ---
Patient received a 500ml bolus from [facility] (EMS) prior to arrival.
[2019-07-27] MEDS ORDERED: NS IV 1000 ML 1,000 ML ONE (14:07)
--- NOTE | 2019-07-27 14:14 | ED General ---
General Stated Complaint: AMS; FALL History of Present Illness Date Seen by Provider: Jul 27, 2019 Time Seen by Provider: 13:45 Initial Comments History is provided by EMS she had fallen several times over last couple months but today was found by home health when fall and was confused and was not her normal self said urinary tract infections and before EMS was called and brought her in pressure was noted to be low O2 saturations low Severity: Moderate Review of systems cannot be ascertained due to patient's clinical condition Allergies and Home Medications Allergies Coded Allergies: aspirin (Unverified Adverse Reaction, Unknown, 01/01/19) Home Medications Ammonium Lactate 226 Gm Lotion, TOP BID, (Reported) Atorvastatin Calcium 20 Mg Tablet, 20 MG PO HS, (Reported) LAST FILLED #90 12-31-18 Cefdinir 300 Mg Capsule, 300 MG PO BID Prescribed by: IJEOMA WHYTE on 07/14/19 1256 Chlorhexidine Gluconate 473 Ml Mouthwash, 5 ML PO BID PRN for MOUTH, (Reported) Cyanocobalamin (Vitamin B-12) 1,000 Mcg Tablet, 1,000 MCG PO DAILY, (Reported) Diazepam 5 Mg Tablet, 5 MG PO Q8H PRN for ANXIETY, (Reported) Diclofenac Sodium 75 Mg Tablet.dr, 75 MG PO DAILY, (Reported) Dicyclomine HCl 10 Mg Capsule, 10 MG PO QID, (Reported) LAST FILLED #360 03-24-19 Duloxetine HCl 60 Mg Capsule.dr, 60 MG PO DAILY, (Reported) LAST FILLED #90 03-21-19 Ergocalciferol (Vitamin D2) 50,000 Unit Capsule, 50,000 UNIT PO WEEK, (Reported) Famotidine 20 Mg Tablet, 20 MG PO BID, (Reported) LAST FILLED #180 12-31-18 Fluticasone Propionate 16 Gm [place].susp, 2 SPRAYS NS DAILY, (Reported) Folic Acid 1 Mg Tablet, 1 MG PO DAILY, (Reported) UNKNOWN LAST FILL DATE Gabapentin 800 Mg Tablet, 800 MG PO QID, (Reported) Gabapentin 100 Mg Capsule, 100 MG PO HS, (Reported) Hydrocodone/Acetaminophen 1 Each Tablet, 1 TAB PO QID PRN for PAIN-MODERATE (5- 7), (Reported) Lisinopril 20 Mg Tablet, 20 MG PO DAILY, (Reported) LAST FILLED #90 03-27-19 Lutein 20 Mg Tablet, 20 MG PO DAILY, (Reported) Metformin HCl 1,000 Mg Tablet, 1,000 MG PO BID, (Reported) Oxybutynin Chloride 5 Mg Tab.er.24, 5 MG PO BID, (Reported) Polyethylene Glycol 3350 17 Gm Powd.pack, 17 GM PO DAILY, (Reported) Promethazine HCl 25 Mg Tablet, 25 MG PO TID PRN for NAUSEA/VOMITING-2ND LINE, (Reported) Ropinirole HCl 0.5 Mg Tablet, 0.5 MG PO 1800, (Reported) Simethicone 125 Mg Capsule, 125 MG PO PCHS PRN for GAS, (Reported) Sodium Chloride/Aloe Vera 22 Ml [place], 2 SPRAYS NSEACH Q2H PRN for DRY NOSE, (R eported) Patient Home Medication List Home Medication List Reviewed: Yes Review of Systems Review of Systems Constitutional: no symptoms reported Review of systems could not be ascertained due to patient's clinical condition and lack of response of any integrity Past Fsgfarz-Dqvkdt-Julkfk Hx Past Med/Social Hx: Reviewed Nursing Past Med/Soc Hx Patient Social History Recent Foreign Travel: Yes Recent Hopitalizations: No Immunizations Up To Date Date of Pneumonia Vaccine: Dec 21, 2017 Date of Influenza Vaccine: May 24, 2019 Seasonal Allergies Seasonal Allergies: No Past Medical History Surgeries: Yes (S/P gastroplasty, hiatal hernia, ulnar nerve transposition, carpal tunnel ) Gallbladder Respiratory: No (hx of sinus surgery) Cardiac: Yes Hypertension Neurological: Yes (Polyneuropathy) Neuropathy Genitourinary: Yes (Renal insufficiency, Stage 3 CKD, cystitis hx, Incontinence) UTI-Chronic Diverticulosis, Hiatal Hernia, Irritable Bowel Musculoskeletal: Yes (Bilateral sacroilitis hx, osteoathritis of spine, ) Chronic Back Pain, Fractures Endocrine: Yes (Type II DM, Morbid Obesity) Diabetes, Non-Insulin dep HEENT: Yes Cataract Cancer: No Psychosocial: Yes (Opioid dependence) Anxiety, Depression Integumentary: No (hx cellulitis) Blood Disorders: No Family Medical History Patient reports no known family medical history. Physical Exam Vital Signs Vital Signs - First Documented 07/27/19 14:15 Temp 36.2 Pulse 73 Resp 14 B/P (MAP) 108/51 (70) Pulse Ox 100 O2 Delivery Nasal Cannula O2 Flow Rate 2.00 Capillary Refill : Height, Weight, BMI Height: 5'1.00" Weight: 210lbs. oz. [id number]; 35.34 BMI Method:Stated General Appearance: Cachetic, Moderate Distress, Thin Eyes: Bilateral Eye PERRL, Bilateral Eye EOMI HEENT: TMs Normal, Pharynx Normal Neck: Normal Inspection, Non Tender Respiratory: Decreased Breath Sounds; No Rhonci, No Wheezing Cardiovascular: Regular Rate, Rhythm, No Edema Gastrointestinal: Non Tender, Soft, Abnormal Bowel Sounds Extremity: Normal Capillary Refill, Normal Inspection Neurologic/Psychiatric: Alert, Oriented x3 Skin: Normal Color, Warm/Dry, Pallor Focused Exam Lactate Level 07/27/19 13:52: Lactic Acid Level 1.40 Lactic Acid Level Laboratory Tests Test 07/27/19 13:52 Lactic Acid Level 1.40 MMOL/L (0.50-2.00) Progress/Results/Core Measures Suspected Sepsis SIRS Temperature: Pulse: Respiratory Rate: Laboratory Tests 07/27/19 13:52: White Blood Count 9.9 Blood Pressure / Mean: 07/27/19 13:52: Lactic Acid Level 1.40 Laboratory Tests 07/27/19 13:52: Creatinine 1.08, Platelet Count 191, Total Bilirubin 0.3 Results/Orders Lab Results Laboratory Tests Test 07/27/19 13:52 07/27/19 14:16 Range/Units White Blood Count 9.9 4.3-11.0 10^3/uL Red Blood Count 3.78 L 4.35-5.85 10^6/uL Hemoglobin 11.2 L 11.5-16.0 G/DL Hematocrit 36 35-52 % Mean Corpuscular Volume 96 80-99 FL Mean Corpuscular Hemoglobin 30 25-34 PG Mean Corpuscular Hemoglobin Concent 31 L 32-36 G/DL Red Cell Distribution Width 13.2 10.0-14.5 % Platelet Count 191 130-400 10^3/uL Mean Platelet Volume 11.6 H 7.4-10.4 FL Neutrophils (%) (Auto) 70 42-75 % Lymphocytes (%) (Auto) 16 12-44 % Monocytes (%) (Auto) 9 0-12 % Eosinophils (%) (Auto) 4 0-10 % Basophils (%) (Auto) 1 0-10 % Neutrophils # (Auto) 7.0 1.8-7.8 X 10^3 Lymphocytes # (Auto) 1.6 1.0-4.0 X 10^3 Monocytes # (Auto) 0.9 0.0-1.0 X 10^3 Eosinophils # (Auto) 0.4 H 0.0-0.3 10^3/uL Basophils # (Auto) 0.1 0.0-0.1 10^3/uL Neutrophils % (Manual) 66 % Lymphocytes % (Manual) 15 % Monocytes % (Manual) 8 % Eosinophils % (Manual) 5 % Band Neutrophils 6 % Blood Morphology Comment NORMAL Sodium Level 139 135-145 MMOL/L Potassium Level 4.8 3.6-5.0 MMOL/L Chloride Level 102 98-107 MMOL/L Carbon Dioxide Level 25 21-32 MMOL/L Anion Gap 12 5-14 MMOL/L Blood Urea Nitrogen 22 H 7-18 MG/DL Creatinine 1.08 0.60-1.30 MG/DL Estimat Glomerular Filtration Rate 51 BUN/Creatinine Ratio 20 Glucose Level 128 H 70-105 MG/DL Lactic Acid Level 1.40 0.50-2.00 MMOL/L Calcium Level 9.4 8.5-10.1 MG/DL Corrected Calcium 9.9 8.5-10.1 MG/DL Total Bilirubin 0.3 0.1-1.0 MG/DL Aspartate Amino Transf (AST/SGOT) 19 5-34 U/L Alanine Aminotransferase (ALT/SGPT) 11 0-55 U/L Alkaline Phosphatase 60 40-136 U/L Troponin I < 0.30 <0.30 NG/ML Pro-B-Type Natriuretic Peptide 283.4 H <75.0 PG/ML Total Protein 5.9 L 6.4-8.2 GM/DL Albumin 3.4 3.2-4.5 GM/DL Urine Color YELLOW Urine Clarity CLEAR Urine pH 5.5 5-9 Urine Specific [place] 1.025 H 1.016-1.022 Urine Protein NEGATIVE NEGATIVE Urine Glucose (UA) NEGATIVE NEGATIVE Urine Ketones NEGATIVE NEGATIVE Urine Nitrite NEGATIVE NEGATIVE Urine Bilirubin 1+ H NEGATIVE Urine Urobilinogen 0.2 < = 1.0 MG/DL Urine Leukocyte Esterase NEGATIVE NEGATIVE Urine RBC (Auto) NEGATIVE NEGATIVE Urine RBC NONE /HPF Urine WBC NONE /HPF Urine Squamous Epithelial Cells RARE /HPF Urine Crystals NONE /LPF Urine Bacteria NONE /HPF Urine Casts NONE /LPF Urine Mucus NEGATIVE /LPF Urine Culture Indicated NO My Orders Orders - ERYN VILLASEÑOR JR, MD Cbc And Manual Diff (07/27/19 13:58) Comprehensive Metabolic Panel (07/27/19 13:58) Troponin I Fs (07/27/19 13:58) Probnp Fs (07/27/19 13:58) Blood Culture (07/27/19 13:58) Lactic Acid Analyzer (07/27/19 13:58) Ct Head Wo (07/27/19 13:58) Ekg Tracing (07/27/19 13:58) Ns Iv 1000 Ml (Sodium Chloride 0.9%) (07/27/19 14:07) Chest 1 View Ap/Pa Only (07/27/19 14:14) Ns Iv 1000 Ml (Sodium Chloride 0.9%) (07/27/19 14:45) Ua Culture If Indicated (07/27/19 14:46) Blood Culture (07/27/19 14:35) Ceftriaxone For Iv Use (Rocephin For I (07/27/19 15:45) Medications Given in ED Current Medications Medications Dose Ordered Sig/Lashell Route Start Time Stop Time Status Last Admin Dose Admin Ceftriaxone Sodium 1000 mg/ Sterile Water 10 ml @ 200 mls/hr ONCE ONCE IV 07/27/19 15:45 07/27/19 15:47 DC 07/27/19 16:26 200 MLS/HR Vital Signs/I&O 07/27/19 14:15 Temp 36.2 Pulse 73 Resp 14 B/P (MAP) 108/51 (70) Pulse Ox 100 O2 Delivery Nasal Cannula O2 Flow Rate 2.00 Capillary Refill : Progress Note : Time: 16:39 Progress Note With fluids the pressure did come up and patient's confusion began to resolve white count was normal lactate was normal at this time do feel like she has a developing pneumonia we'll go ahead and give her Rocephin and Zithromax transferred to [place] do not feel like she is safe at home certainly needs treatment nights and snf she has home health but needs more strength before she can return to that setting diagnosis would be sepsis with hypotension pneumonia ECG Initial ECG Impression Date: Jul 27, 2019 Initial ECG Impression Time: 14:19 Initial ECG Rate: 76 Initial ECG Rhythm: Normal Sinus Initial ECG Intervals: Normal Initial ECG Impression: Normal Diagnostic Imaging Diagonstic Imaging: Xray Plain Films/CT/US/NM/MRI: chest Comments Radiologist read it out as early evidence of pneumonia Departure Communication (Admissions) Time/Spoke to Admitting Phy: 16:[address] Whyte regarding admission pneumonia sepsis hypotension inpatient cardiac stepdown Impression Primary Impression: Sepsis with hypotension Additional Impressions: Pneumonia Qualified Codes: J18.1 - Lobar pneumonia, unspecified organism Risk for falls Disposition: 02 XFER SHT-TRM HOSP Condition: Stable Admissions Decision to Admit Reason: Admit from ER (Trauma) Decision to Admit/Date: Jul 27, 2019 Time/Decision to Admit Time: 16:43 Transfer Transfer Reason: Exceeds level of care Time Spoke to Accepting Phy: 16:43 Transfer Facility: [facility] Method of Transfer: EMS Departure-Patient Inst. Referrals: [facility] (PCP) Primary Care Physician JAIME,LOCAL PHYSICIAN (Family) Primary Care Physician ERYN VILLASEÑOR JR, MD Jul 27, 2019 14:14 POS
[2019-07-27] MEDS ORDERED: NS IV 1000 ML 1,000 ML IV SCH ×2 (14:45→18:45)
[2019-07-27 14:55] LABS: BASOPHILS % (AUTO) 1 % (0-10); EOSINOPHILS # (AUTO) 0.4 10^3/uL (0.0-0.3); EOSINOPHILS % (AUTO) 4 % (0-10); HEMATOCRIT 36 % (35-52); HEMOGLOBIN 11.2 G/DL (11.5-16.0); LYMPHOCYTES # (AUTO) 1.6 X 10^3 (1.0-4.0); LYMPHOCYTES % (AUTO) 16 % (12-44); MEAN CORPUSCULAR HEMOGLOBIN 30 PG (25-34); MEAN CORPUSCULAR HGB CONC 31 G/DL (32-36); MEAN CORPUSCULAR VOLUME 96 FL (80-99); MEAN PLATELET VOLUME 11.6 FL (7.4-10.4); MONOCYTES # (AUTO) 0.9 X 10^3 (0.0-1.0); MONOCYTES % (AUTO) 9 % (0-12); NEUTROPHILS % (AUTO) 70 % (42-75); PLATELET COUNT 191 10^3/uL (130-400); RED CELL DISTRIBUTION WIDTH 13.2 % (10.0-14.5); WHITE BLOOD COUNT 9.9 10^3/uL (4.3-11.0)
[2019-07-27 14:56] LABS: BASOPHILS # (AUTO) 0.1 10^3/uL (0.0-0.1)
--- NOTE | 2019-07-27 15:00 | NUR ---
Pt returned from CT and radiology staff made this RN aware that the pts left forearm IV infiltrated while in CT. Radiology staff pulled the IV and placed a pressure dressing.
--- NOTE | 2019-07-27 15:02 | Diagnostic Imaging Report ---
PROCEDURE: CT head without contrast. TECHNIQUE: Multiple contiguous axial images were obtained through the brain without the use of intravenous contrast. Auto Exposure Controls were utilized during the CT exam to meet ALARA standards for radiation dose reduction. INDICATION: Altered mental status, post fall. CORRELATION STUDY: 07/11/2019 FINDINGS: There is moderate amount of a streak artifact as a compromise assessment. Given this, the ventricles and sulci appear relatively stable and unremarkable for the patient's age. There are no abnormal areas of decreased attenuation to suggest edema. No midline shift or mass effect. No intracranial hemorrhage. Basilar cisterns are maintained. Bony calvarium is intact with paranasal sinus and mastoid air cells clear. IMPRESSION: 1. Stable-appearing noncontrast CT imaging demonstrates no acute intracranial abnormality. Dictated by: Dictated on workstation # [id number]
[2019-07-27 15:12] LABS: BILIRUBIN,URINE 1+ (NEGATIVE); CLARITY,URINE CLEAR; COLOR,URINE YELLOW; GLUCOSE, URINE (UA) NEGATIVE (NEGATIVE); KETONES,URINE NEGATIVE (NEGATIVE); LEUKOCYTE ESTERASE ,URINE NEGATIVE (NEGATIVE); NITRITE,URINE NEGATIVE (NEGATIVE); PH,URINE 5.5 (5-9); PROTEIN,URINE NEGATIVE (NEGATIVE); SQUAMOUS EPITHELIAL CELL,UR RARE /HPF
--- NOTE | 2019-07-27 15:14 | Diagnostic Imaging Report ---
INDICATION: Status post fall, altered mental status. TECHNIQUE: Single-view chest at 02:28 p.m. CORRELATION STUDY: None. FINDINGS: Heart size is at the upper limits of normal. Aortic arch contour appears unremarkable. Some increased density at the right perihilar region could be reflective of mild infiltrate or atelectasis. Question minimal atelectasis at the left lung base. No significant pneumothorax or effusion. Overlying monitor leads over the upper abdomen. Additional density in the left epigastric region, nonspecific. IMPRESSION: 1. Questionable minimal infiltrate in and around the right hilum and left lung base. Would consider short-term follow-up two-view chest imaging for reassessment. Dictated by: Dictated on workstation # [id number]
[2019-07-27 15:24] LABS: ALANINE AMINOTRANSFERASE 11 U/L (0-55); ALKALINE PHOSPHATASE 60 U/L (40-136); BILIRUBIN,TOTAL 0.3 MG/DL (0.1-1.0); BUN/CREATININE RATIO 20; CALCIUM 9.4 MG/DL (8.5-10.1); CARBON DIOXIDE 25 MMOL/L (21-32); CHLORIDE 102 MMOL/L (98-107); CREATININE SERUM 1.08 MG/DL (0.60-1.30); GFR ESTIMATED 51; GLUCOSE 128 MG/DL (70-105); POTASSIUM 4.8 MMOL/L (3.6-5.0); SODIUM 139 MMOL/L (135-145)
[2019-07-27 15:25] LABS: ALBUMIN 3.4 GM/DL (3.2-4.5); NEUTROPHILS % (MANUAL) 66 %; TOTAL PROTEIN 5.9 GM/DL (6.4-8.2)
[2019-07-27 15:26] LABS: BAND NEUTROPHILS 6 %; EOSINOPHILS % (MANUAL) 5 %; LYMPHOCYTES % (MANUAL) 15 %; MONOCYTES % (MANUAL) 8 %; RBC MORPH NORMAL
[2019-07-27] MEDS ORDERED: cefTRIAXone FOR IV USE 1,000 MG in WATER (STERILE) FOR INJECTION 10 ML IV ONE (15:45)
[2019-07-27] MEDS ORDERED: AZITHROMYCIN INJECTION 500 MG in NS (IVPB) 250 ML IV ONE (16:45)
[2019-07-27] MEDS ORDERED: CALCIUM CARBONATE 500 MG (TUMS) TAB.CHEW PO PRN (18:45)
[2019-07-27] MEDS ORDERED: ONDANSETRON 4 MG/2 ML (SDV) Z0FRAN IVP PRN (18:45)
[2019-07-27] MEDS ORDERED: DOCUSATE SODIUM 100 MG (COLACE) CAP PO PRN (18:45)
[2019-07-27] MEDS ORDERED: HYDROcodone/APAP 5 MG/325 MG (LORTAB) TAB PO PRN (18:45)
[2019-07-27] MEDS ORDERED: guaiFENesin/CODEINE (ROBITUSSIN AC) 10ML UDC PO PRN (18:45)
[2019-07-27] MEDS ORDERED: CATHETER FLUSH 10 ML SYR IV PRN (18:45)
[2019-07-27] MEDS ORDERED: fentaNYL INJECTION 100 MCG/2 ML AMP IVP PRN (18:45)
[2019-07-27] MEDS ORDERED: diphenhydrAMINE 25 MG TAB (BENADRYL) PO PRN (18:45)
[2019-07-27] MEDS ORDERED: LOPERAMIDE 2 MG (IMODIUM) TABLET PO PRN (18:45)
[2019-07-27] MEDS ORDERED: ACETAMINOPHEN 500 MG TAB (TYLENOL) PO PRN (18:45)
[2019-07-27] MEDS ORDERED: ALPRAZolam 0.25 MG (XANAX) TAB PO PRN (18:45)
[2019-07-27] MEDS: NS IV 1000 ML 1,000 ML IV SCH ×3 (19:45→21:58)
[2019-07-27] MEDS: ENOXAPARIN 40 MG/0.4 ML (LOVENOX) SYR SC SCH (19:46)
--- NOTE | 2019-07-27 19:51 | NUR ---
THIS RN CAME IN TO START PT FLUIDS AND GIVE PRESCRIBED LOVENOX AND PT REFUSED. THIS RN TRIED TO EDUCATE PT ON IMPORTANCE OF MEDICATIONS AND FLUIDS BUT STILL REFUSED. DR WHYTE CONTACTED ABOUT SITUATION. WILL TRY TO ADMINISTER MEDS WHEN PT CALMS DOWN.
[2019-07-27] MEDS ORDERED: LORazepam INJ 2 MG/ML (ATIVAN) VIAL IVP PRN ×2 (20:00→21:30)
--- NOTE | 2019-07-27 20:00 | NUR ---
2019- this rn came to check on pt as she was attempting to get out of bed. this rn told patient that she needed to stay in bed because of the monitors attached to her. at this point the patient became extremely agitated and began hitting, kicking, trying to get out of bed and pulling at cords. therapeutic communication and redirection attempted with no success. ativan and haldol were given to attempt to calm pt down with no success. 2036- Dr Estrada contacted about agitation and orders for 10mg of geodon q4 prn given. at this time nurses and techs on the unit were attempting to keep pt in bed and from injuring herself or staff members by holding her ankles and wrists. pt continued to become more agitated. 2054- dr estrada contacted again. orders for precedex drip and 1mg ativan to be given q1hr as needed for agitation and to transfer to ICU status for closer monitoring. 2121- per pt request friend was contacted. friend attempted to talk to pt and calm her down. this rn also talked to pt friend and updated her on situation and was was being done. 7- at this time pt is calm and resting. will continue to monitor.
[2019-07-27] MEDS ORDERED: ZIPRASIDONE 20 MG INJ (GEODON) VIAL IM ONE (20:37)
[2019-07-27] MEDS ORDERED: NS (IVPB) 50 ML ONE (20:56)
[2019-07-27] MEDS: ZIPRASIDONE 20 MG INJ (GEODON) VIAL IM PRN (21:30)
[2019-07-27] MEDS: HALOPERIDOL 5 MG/ML (HALDOL) AMP IM PRN (21:30)
[2019-07-27] MEDS: DEXMEDETOMIDINE INJECTION 200 MCG in NS (IVPB) 50 ML IV SCH ×2 (21:32→22:26)
[2019-07-27] MEDS: RT-ALBUTEROL SULF 2.5 MG/3 ML PRE-MIX VIAL INH SCH (21:58)
[2019-07-27] MEDS: SENNA W/DOCUSATE (SENOKOT S) TABLET PO SCH (22:02)
[2019-07-28] VITALS (24 sets, daily range): BP systolic 85–171; BP diastolic 48–99
--- NOTE | 2019-07-28 00:19 | NUR ---
E-ICU CONTACTED ABOUT PT LOW BLOOD PRESSURE AND PT BEING HARD TO AROUSE. PRECEDEX DRIP HELD AT THIS TIME.
[2019-07-28 01:08] LABS: ABG BASE EXCESS -2.9 MMOL/L (-2.5-2.5); ABG OXYGEN SATURATION 97 % (94-100); ABG PCO2 64 MMHG (35-45); ABG PO2 94 MMHG (79-93); ABG TCO2 26.4 MMOL/L (21.0-31.0)
[2019-07-28 01:09] LABS: ALLENS TEST YES-POS; INSPIRED O2 4L; PATIENT TEMP 35.8; VENTILATOR NO
[2019-07-28] MEDS ORDERED: NS IV 500 ML 500 ML IV SCH (02:11)
[2019-07-28 02:36] LABS: ABG BASE EXCESS -4.8 MMOL/L (-2.5-2.5); ABG OXYGEN SATURATION 99 % (94-100); ABG PCO2 55 MMHG (35-45); ABG PO2 135 MMHG (79-93); ABG TCO2 23.8 MMOL/L (21.0-31.0)
[2019-07-28 02:42] LABS: ABG PH 7.22 (7.37-7.43); ALLENS TEST YES-POS; INSPIRED O2 4L; PATIENT TEMP 35.8; VENTILATOR NO
[2019-07-28] MEDS ORDERED: NS IV 1000 ML 1,000 ML IV SCH (03:10)
[2019-07-28 03:37] LABS: BASOPHILS % (AUTO) 1 % (0-10); EOSINOPHILS # (AUTO) 0.4 10^3/uL (0.0-0.3); EOSINOPHILS % (AUTO) 8 % (0-10); HEMATOCRIT 34 % (35-52); HEMOGLOBIN 10.4 G/DL (11.5-16.0); LYMPHOCYTES # (AUTO) 1.4 X 10^3 (1.0-4.0); LYMPHOCYTES % (AUTO) 26 % (12-44); MEAN CORPUSCULAR HEMOGLOBIN 30 PG (25-34); MEAN CORPUSCULAR HGB CONC 31 G/DL (32-36); MEAN CORPUSCULAR VOLUME 97 FL (80-99); MEAN PLATELET VOLUME 11.8 FL (7.4-10.4); MONOCYTES # (AUTO) 0.4 X 10^3 (0.0-1.0); MONOCYTES % (AUTO) 8 % (0-12); NEUTROPHILS % (AUTO) 58 % (42-75); PLATELET COUNT 158 10^3/uL (130-400); RED CELL DISTRIBUTION WIDTH 13.3 % (10.0-14.5); WHITE BLOOD COUNT 5.2 10^3/uL (4.3-11.0)
[2019-07-28] MEDS ORDERED: PANTOPRAZOLE 40 MG (PROTONIX) VIAL IV ONE (04:00)
[2019-07-28 04:05] LABS: ALANINE AMINOTRANSFERASE 11 U/L (0-55); ALBUMIN 3.2 GM/DL (3.2-4.5); ALKALINE PHOSPHATASE 54 U/L (40-136); BILIRUBIN,TOTAL 0.3 MG/DL (0.1-1.0); BUN/CREATININE RATIO 21; CARBON DIOXIDE 20 MMOL/L (21-32); CHLORIDE 113 MMOL/L (98-107); CREATININE SERUM 0.72 MG/DL (0.60-1.30); GFR ESTIMATED > 60; GLUCOSE 101 MG/DL (70-105); PHOSPHORUS 3.1 MG/DL (2.3-4.7); POTASSIUM 4.4 MMOL/L (3.6-5.0); SODIUM 142 MMOL/L (135-145); TOTAL PROTEIN 5.1 GM/DL (6.4-8.2)
[2019-07-28] MEDS: POTASSIUM CL 10MEQ/50ML IVPB 50 ML IV SCH (04:09)
[2019-07-28] MEDS: KCL 20 MEQ TAB (K-DUR) PO SCH (04:09)
[2019-07-28 04:13] LABS: MAGNESIUM 0.9 MG/DL (1.6-2.4)
--- NOTE | 2019-07-28 04:20 | Pulmonary Consultation ---
History of Present Illness History of Present Illness Date Seen by Provider: Jul 28, 2019 Time Seen by Provider: 04:14 Date of Admission History of Present Illness 68yo presented to ED via EMS after falling multiple times over the last 2 months and being found on floor with MS changes and very confused. Pt was found to be hypoxic requiring high flow oxygen. She was admitted to step down unit for close observation however developed worsening psychosis through the night and was made ICU. she is now on Precedex gtt, she also received Ativan, Geodon, Fentanyl Haldol though the night. I am consulted for ICU management. Pt is now unresponsive on BiPAP unable to obtain ROS. Allergies and Home Medications Allergies Coded Allergies: aspirin (Unverified Adverse Reaction, Unknown, 01/01/19) Home Medications Ammonium Lactate 226 Gm Lotion, TOP BID, (Reported) Atorvastatin Calcium 20 Mg Tablet, 20 MG PO HS, (Reported) LAST FILLED #90 12-31-18 Cefdinir 300 Mg Capsule, 300 MG PO BID Prescribed by: IJEOMA WHYTE on 07/14/19 1256 Chlorhexidine Gluconate 473 Ml Mouthwash, 5 ML PO BID PRN for MOUTH, (Reported) Cyanocobalamin (Vitamin B-12) 1,000 Mcg Tablet, 1,000 MCG PO DAILY, (Reported) Diazepam 5 Mg Tablet, 5 MG PO Q8H PRN for ANXIETY, (Reported) Diclofenac Sodium 75 Mg Tablet.dr, 75 MG PO DAILY, (Reported) Dicyclomine HCl 10 Mg Capsule, 10 MG PO QID, (Reported) LAST FILLED #360 03-24-19 Duloxetine HCl 60 Mg Capsule.dr, 60 MG PO DAILY, (Reported) LAST FILLED #90 03-21-19 Ergocalciferol (Vitamin D2) 50,000 Unit Capsule, 50,000 UNIT PO WEEK, (Reported) Famotidine 20 Mg Tablet, 20 MG PO BID, (Reported) LAST FILLED #180 12-31-18 Fluticasone Propionate 16 Gm Gilchrist.susp, 2 SPRAYS NS DAILY, (Reported) Folic Acid 1 Mg Tablet, 1 MG PO DAILY, (Reported) UNKNOWN LAST FILL DATE Gabapentin 800 Mg Tablet, 800 MG PO QID, (Reported) Gabapentin 100 Mg Capsule, 100 MG PO HS, (Reported) Hydrocodone/Acetaminophen 1 Each Tablet, 1 TAB PO QID PRN for PAIN-MODERATE (5- 7), (Reported) Lisinopril 20 Mg Tablet, 20 MG PO DAILY, (Reported) LAST FILLED #90 8-4-19 Lutein 20 Mg Tablet, 20 MG PO DAILY, (Reported) Metformin HCl 1,000 Mg Tablet, 1,000 MG PO BID, (Reported) Oxybutynin Chloride 5 Mg Tab.er.24, 5 MG PO BID, (Reported) Polyethylene Glycol 3350 17 Gm Powd.pack, 17 GM PO DAILY, (Reported) Promethazine HCl 25 Mg Tablet, 25 MG PO TID PRN for NAUSEA/VOMITING-2ND LINE, (Reported) Ropinirole HCl 0.5 Mg Tablet, 0.5 MG PO 1800, (Reported) Simethicone 125 Mg Capsule, 125 MG PO PCHS PRN for GAS, (Reported) Sodium Chloride/Aloe Vera 22 Ml Gilchrist, 2 SPRAYS NSEACH Q2H PRN for DRY NOSE, (Reported) Past Anrhujh-Ojmzah-Uedkfx Hx Past Med/Social Hx: Reviewed Nursing Past Med/Soc Hx Patient Social History Alcohol Use: Denies Use Recreational Drug Use: No Recent Foreign Travel: No Contact w/Someone Who Travel: No Recent Infectious Disease Expo: No Recent Hopitalizations: No Physical Abuse: No Sexual Abuse: No Mistreated: No Fear: No Immunizations Up To Date Date of Pneumonia Vaccine: Dec 21, 2017 Date of Influenza Vaccine: May 24, 2019 Seasonal Allergies Seasonal Allergies: No Past Medical History Surgeries: Yes (S/P gastroplasty, hiatal hernia, ulnar nerve transposition, carpal tunnel ) Gallbladder Respiratory: No (hx of sinus surgery) Cardiac: Yes Hypertension Neurological: Yes (Polyneuropathy) Neuropathy Genitourinary: Yes (Renal insufficiency, Stage 3 CKD, cystitis hx, Incontinence) UTI-Chronic Diverticulosis, Hiatal Hernia, Irritable Bowel Musculoskeletal: Yes (Bilateral sacroilitis hx, osteoathritis of spine, ) Chronic Back Pain, Fractures Endocrine: Yes (Type II DM, Morbid Obesity) Diabetes, Non-Insulin dep HEENT: Yes Cataract Cancer: No Psychosocial: Yes (Opioid dependence) Anxiety, Depression Integumentary: No (hx cellulitis) Blood Disorders: No Family Medical History Patient reports no known family medical history. Review of Systems Time Seen by Provider: 04:18 Sepsis Event Evaluation Height, Weight, BMI Height: 5'1.00" Weight: 210lbs. oz. [id number]; 31.16 BMI Method:Stated Exam Exam Vital Signs Date Time Temp Pulse Resp B/P (MAP) Pulse Ox O2 Delivery O2 Flow Rate FiO2 07/28/19 03:25 NIV Bilevel 21 07/28/19 03:24 NIV Bilevel 21 07/28/19 03:24 35.7 07/28/19 03:17 NIV Bilevel 21.00 07/28/19 03:15 45 12 100 21.00 07/28/19 03:00 50 12 107/62 (77) 100 Nasal Cannula 4.00 07/28/19 02:00 57 12 100/86 (91) 100 Nasal Cannula 4.00 07/28/19 01:00 50 12 94/62 (73) 100 Nasal Cannula 4.00 07/28/19 00:30 Nasal Cannula 4.00 07/28/19 00:04 Nasal Cannula 4.00 07/28/19 00:00 Nasal Cannula 4.00 07/28/19 00:00 54 11 85/48 (60) 100 Nasal Cannula 5.00 07/27/19 23:58 36.2 07/27/19 23:30 52 12 95/51 (66) 97 Nasal Cannula 5.00 07/27/19 23:25 Nasal Cannula 5.00 07/27/19 23:00 58 11 103/64 (77) 93 Nasal Cannula 4.00 07/27/19 22:02 Nasal Cannula 4.00 07/27/19 22:00 56 14 108/69 (82) 100 Nasal Cannula 4.00 07/27/19 21:00 Nasal Cannula 4.00 07/27/19 20:00 36.4 07/27/19 20:00 74 13 149/90 (109) 94 Nasal Cannula 4.00 07/27/19 20:00 Nasal Cannula 4.00 07/27/19 19:35 98 Nasal Cannula 4.00 07/27/19 19:00 65 07/27/19 19:00 65 13 134/98 (110) 100 Nasal Cannula 4.00 07/27/19 18:30 63 13 122/64 (83) 100 Nasal Cannula 4.00 07/27/19 17:35 36.7 76 17 133/85 100 Nasal Cannula 4.00 07/27/19 17:30 36.7 76 17 133/85 (101) 100 Nasal Cannula 4.00 100.00 07/27/19 17:30 36.7 76 17 133/85 100 Nasal Cannula 4.00 07/27/19 14:15 36.2 73 14 108/51 (70) 100 Nasal Cannula 2.00 I & O 07/28/19 07:00 Intake Total 2000 ml Output Total 800 ml Balance 1200 ml Height & Weight Height: 5'1.00" Weight: 210lbs. oz. [id number]; 31.16 BMI Method:Stated General Appearance: Cachetic, Moderate Distress, Thin HEENT: TMs Normal, Pharynx Normal Neck: Normal Inspection, Non Tender Respiratory: Decreased Breath Sounds; No Rhonci, No Wheezing Cardiovascular: Regular Rate, Rhythm, No Edema Capillary Refill: Less Than 3 Seconds Extremity: Normal Capillary Refill, Normal Inspection Neurologic/Psychiatric: Depressed Affect, Disoriented Skin: Normal Color, Warm/Dry, Pallor Results Lab Laboratory Tests 07/27/19 13:52 07/28/19 02:55 Assessment/Plan Assessment/Plan Acute respiratory failure secondary to over sedation -Repeat ABG may need intubation -Pt is minimally responsive to painful stimuli -Will give narcan x 1 -Check accu check -- 75 -Repeat CT of head secondary to frequent falls will do with and without contrast -Precedex has been off since 2am hypotension - probably secondary to dehydration - Doubt PNA, or sepsis -- Currently normotensive -Check UDS -repeat ABG -Pt received 1 liter at [employer] [place] -She received another 1.5 liters though the night per EICU Bradycardia -Check troponin and check EKG -Monitor close Metabolic acidosis - probably secondary to dehydration -Repeat Lactic acid -Give liter bolus of LR and change IVF to LR at 150 Hypomagnesium -Give 4 grms and recheck later. Psychosis -Currently on Precedex gtt PNA Frequent falls. -Ct head on admission is negative JASMIN KAISER DO Jul 28, 2019 04:19 POS
[2019-07-28] MEDS ORDERED: LACTATED RINGERS 1,000 ML IV SCH (04:30)
[2019-07-28] MEDS: MAGNESIUM 1 GM/100 ML IVPB 100 ML IV SCH ×7 (04:51→14:01)
[2019-07-28 04:55] LABS: ABG BASE EXCESS -4.9 MMOL/L (-2.5-2.5); ABG OXYGEN SATURATION 98 % (94-100); ABG PCO2 49 MMHG (35-45); ABG PO2 106 MMHG (79-93); ABG TCO2 23.2 MMOL/L (21.0-31.0)
[2019-07-28 04:56] LABS: ALLENS TEST YES-POS; INSPIRED O2 21%; PATIENT TEMP 35.2; VENTILATOR NO
[2019-07-28 04:57] LABS: ABG PH 7.25 (7.37-7.43)
[2019-07-28 05:08] LABS: AMPHETAMINE SCREEN, URINE NEGATIVE (NEGATIVE); BARBITURATE SCREEN URINE NEGATIVE (NEGATIVE); BENZODIAZEPINES SCREEN URINE POSITIVE (NEGATIVE); CANNABINOID SCREEN, URINE NEGATIVE (NEGATIVE); COCAINE SCREEN URINE NEGATIVE (NEGATIVE); METHADONE STAT NEGATIVE (NEGATIVE); METHAMPHETAMINE SCREEN URINE S NEGATIVE (NEGATIVE); OPIATE SCREEN URINE POSITIVE (NEGATIVE); OXYCODONE STAT NEGATIVE (NEGATIVE); PROPOXYPHENE STAT NEGATIVE (NEGATIVE); TRICYCLIC ANTIDEPRESSANTS SCRE NEGATIVE (NEGATIVE)
[2019-07-28] MEDS ORDERED: NALOXONE 0.4 MG/ML 1 ML (NARCAN) VIAL IV ONE ×2 (05:15→06:00)
[2019-07-28] MEDS ORDERED: DEXTROSE 50% 50 ML (IMS) SYR IV ONE (05:15)
[2019-07-28] MEDS: LACTATED RINGERS 1,000 ML IV SCH ×3 (05:52→18:05)
[2019-07-28] MEDS ORDERED: NALOXONE INJECTION 0.4 MG in NS (IVPB) 99 ML IV SCH (06:00)
[2019-07-28] MEDS ORDERED: FLUMAZENIL (ROMAZICON) 0.1 MG/ML 5 ML VIAL ONE (06:08)
[2019-07-28 06:15] LABS: ABG BASE EXCESS -4.5 MMOL/L (-2.5-2.5); ABG OXYGEN SATURATION 98 % (94-100); ABG PCO2 50 MMHG (35-45); ABG PO2 109 MMHG (79-93); ABG TCO2 23.6 MMOL/L (21.0-31.0)
[2019-07-28] MEDS ORDERED: IOHEXOL 350 MG/ML 100 ML (OMNIPAQUE 350) VIAL IV ONE (06:15)
[2019-07-28] MEDS ORDERED: NS 100 ML (IVPB) BAG IV ONE (06:15)
[2019-07-28] MEDS ORDERED: FLUMAZENIL (ROMAZICON) 0.1 MG/ML 5 ML VIAL IV ONE (06:15)
[2019-07-28] MEDS ORDERED: HOLD METFORMIN - RECEIVED CONTRAST 20 ML VIAL IV SCH (06:15)
[2019-07-28 06:16] LABS: ALLENS TEST YES-POS; INSPIRED O2 30%; PATIENT TEMP 35.2; VENTILATOR NO
[2019-07-28 06:17] LABS: ABG PH 7.25 (7.37-7.43)
[2019-07-28] MEDS: RT-ALBUTEROL SULF 2.5 MG/3 ML PRE-MIX VIAL INH SCH ×3 (07:29→18:12)
--- NOTE | 2019-07-28 07:30 | NUR ---
went to CT bipap with no issues. patient tolerated well
--- NOTE | 2019-07-28 07:42 | Diagnostic Imaging Report ---
CLINICAL INDICATION: Patient with confusion and altered mental status. EXAM: Axial CT scan of brain performed without and with 80 mL of Omnipaque 350 IV contrast. Auto Exposure Controls were utilized during the CT exam to meet ALARA standards for radiation dose reduction. COMPARISON: Head CT without contrast dated 07/27/2019. FINDINGS: Skull streak artifact obscures some portions of the brain parenchyma. There is no evidence of acute cerebral infarct, intracranial hemorrhage, or gross mass effect. There is no abnormal IV contrast enhancement. The brain parenchymal volume appears appropriate for patient's age. There is normal park-white matter distinction. There is no significant midline shift or herniation. The [place] vascular structures show no gross abnormality as visualized. There is no evidence of hydrocephalus. The basal cisterns are unremarkable. The skull, extracranial soft tissue, and orbits are unremarkable. The paranasal sinuses are unremarkable. Temporal bones show no significant abnormality. IMPRESSION: Stable and unremarkable CT scan of the brain. There is no abnormal IV contrast enhancement. Dictated by: Dictated on workstation # [id number]
--- NOTE | 2019-07-28 07:52 | Diagnostic Imaging Report ---
CHEST 1 VIEW, AP/PA ONLY INDICATION: Dyspnea COMPARISON: 07/27/2019 FINDINGS: There remains a triangular focus of probable atelectasis in the left lower lobe. No pleural effusion or pneumothorax. Heart is normal in size. IMPRESSION: 1. Left lower lobe subsegmental atelectasis. Dictated by: Dictated on workstation # [id number]
--- NOTE | 2019-07-28 07:59 | Consultation-Cardiology ---
HPI-Cardiology Cardiology Consultation Date of Consultation 07/28/19 Date of Admission Time Seen by Provider: 07:53 Indication: Bradycardia HPI 68-year-old lady who was brought by EMS for multiple falls and generalized weakness and confusion. She was admitted and treated for sepsis, overnight she became agitated and confused and combative. Given sedation which resulted on respiratory depression, hypoxemia and unresponsiveness in addition to bradycardia. Currently she is awake, on BiPAP. Responding appropriately. Denied any active pain. No palpitation. No syncope. Home Medications & Allergies Allergies: Coded Allergies: aspirin (Unverified Adverse Reaction, Unknown, 01/01/19) Home Medication List Reviewed: Yes FYP-Lkgjlv-Cuzmrj Hx Patient Social History Alcohol Use: Denies Use Recreational Drug Use: No Recent Foreign Travel: No Recent Infectious Disease Expo: No Recent Hopitalizations: No Immunizations Up To Date Date of Pneumonia Vaccine: Dec 21, 2017 Date of Influenza Vaccine: May 24, 2019 Past Medical History Discussed below Unable to provide full history due to respiratory failure Family Medical History Family Medical Hx Unable to provide full history Family History: Patient reports no known family medical history. Review of Systems-General Review of Systems Constitutional: see HPI, malaise, weakness EENTM: see HPI Respiratory: dyspnea on exertion, short of breath, other (On BiPAP) Cardiovascular: see HPI; No chest pain, No edema, No Hx of Intervention, No palpitations, No syncope, No vascular heart diseas, No other Gastrointestinal: no symptoms reported, see HPI Genitourinary: no symptoms reported, see HPI Musculoskeletal: no symptoms reported, see HPI Skin: no symptoms reported, see HPI Psychiatric/Neurological: No Symptoms Reported, See HPI Reviewed Test Results Reviewed Test Results Lab Laboratory Tests Test 07/27/19 13:52 07/27/19 14:16 07/28/19 01:01 07/28/19 02:22 Range/Units White Blood Count 9.9 4.3-11.0 10^3/uL Red Blood Count 3.78 L 4.35-5.85 10^6/uL Hemoglobin 11.2 L 11.5-16.0 G/DL Hematocrit 36 35-52 % Mean Corpuscular Volume 96 80-99 FL Mean Corpuscular Hemoglobin 30 25-34 PG Mean Corpuscular Hemoglobin Concent 31 L 32-36 G/DL Red Cell Distribution Width 13.2 10.0-14.5 % Platelet Count 191 130-400 10^3/uL Mean Platelet Volume 11.6 H 7.4-10.4 FL Neutrophils (%) (Auto) 70 42-75 % Lymphocytes (%) (Auto) 16 12-44 % Monocytes (%) (Auto) 9 0-12 % Eosinophils (%) (Auto) 4 0-10 % Basophils (%) (Auto) 1 0-10 % Neutrophils # (Auto) 7.0 1.8-7.8 X 10^3 Lymphocytes # (Auto) 1.6 1.0-4.0 X 10^3 Monocytes # (Auto) 0.9 0.0-1.0 X 10^3 Eosinophils # (Auto) 0.4 H 0.0-0.3 10^3/uL Basophils # (Auto) 0.1 0.0-0.1 10^3/uL Neutrophils % (Manual) 66 % Lymphocytes % (Manual) 15 % Monocytes % (Manual) 8 % Eosinophils % (Manual) 5 % Band Neutrophils 6 % Blood Morphology Comment NORMAL Sodium Level 139 135-145 MMOL/L Potassium Level 4.8 3.6-5.0 MMOL/L Chloride Level 102 98-107 MMOL/L Carbon Dioxide Level 25 21-32 MMOL/L Anion Gap 12 5-14 MMOL/L Blood Urea Nitrogen 22 H 7-18 MG/DL Creatinine 1.08 0.60-1.30 MG/DL Estimat Glomerular Filtration Rate 51 BUN/Creatinine Ratio 20 Glucose Level 128 H 70-105 MG/DL Lactic Acid Level 1.40 0.50-2.00 MMOL/L Calcium Level 9.4 8.5-10.1 MG/DL Corrected Calcium 9.9 8.5-10.1 MG/DL Total Bilirubin 0.3 0.1-1.0 MG/DL Aspartate Amino Transf (AST/SGOT) 19 5-34 U/L Alanine Aminotransferase (ALT/SGPT) 11 0-55 U/L Alkaline Phosphatase 60 40-136 U/L Troponin I < 0.30 <0.30 NG/ML Pro-B-Type Natriuretic Peptide 283.4 H <75.0 PG/ML Total Protein 5.9 L 6.4-8.2 GM/DL Albumin 3.4 3.2-4.5 GM/DL Urine Color YELLOW Urine Clarity CLEAR Urine pH 5.5 5-9 Urine Specific [place] 1.025 H 1.016-1.022 Urine Protein NEGATIVE NEGATIVE Urine Glucose (UA) NEGATIVE NEGATIVE Urine Ketones NEGATIVE NEGATIVE Urine Nitrite NEGATIVE NEGATIVE Urine Bilirubin 1+ H NEGATIVE Urine Urobilinogen 0.2 < = 1.0 MG/DL Urine Leukocyte Esterase NEGATIVE NEGATIVE Urine RBC (Auto) NEGATIVE NEGATIVE Urine RBC NONE /HPF Urine WBC NONE /HPF Urine Squamous Epithelial Cells RARE /HPF Urine Crystals NONE /LPF Urine Bacteria NONE /HPF Urine Casts NONE /LPF Urine Mucus NEGATIVE /LPF Urine Culture Indicated NO Blood Gas Puncture Site R BRACH R RAD Blood Gas Patient Temperature 35.8 35.8 Arterial Blood pH 7.20 *L 7.22 *L 7.37-7.43 Arterial Blood Partial Pressure CO2 64 H 55 H 35-45 MMHG Arterial Blood Partial Pressure O2 94 H 135 H 79-93 MMHG Arterial Blood HCO3 24 22 L 23-27 MMOL/L Arterial Blood Total CO2 26.4 23.8 21.0-31.0 MMOL/L Arterial Blood Oxygen Saturation 97 99 94-100 % Arterial Blood Base Excess -2.9 L -4.8 L -2.5-2.5 MMOL/L [place] Test YES-POS YES-POS Blood Gas Ventilator Setting NO NO Blood Gas Inspired Oxygen 4L 4L Test 07/28/19 02:55 07/28/19 04:42 07/28/19 04:45 07/28/19 04:49 Range/Units White Blood Count 5.2 4.3-11.0 10^3/uL Red Blood Count 3.52 L 4.35-5.85 10^6/uL Hemoglobin 10.4 L 11.5-16.0 G/DL Hematocrit 34 L 35-52 % Mean Corpuscular Volume 97 80-99 FL Mean Corpuscular Hemoglobin 30 25-34 PG Mean Corpuscular Hemoglobin Concent 31 L 32-36 G/DL Red Cell Distribution Width 13.3 10.0-14.5 % Platelet Count 158 130-400 10^3/uL Mean Platelet Volume 11.8 H 7.4-10.4 FL Neutrophils (%) (Auto) 58 42-75 % Lymphocytes (%) (Auto) 26 12-44 % Monocytes (%) (Auto) 8 0-12 % Eosinophils (%) (Auto) 8 0-10 % Basophils (%) (Auto) 1 0-10 % Neutrophils # (Auto) 3.0 1.8-7.8 X 10^3 Lymphocytes # (Auto) 1.4 1.0-4.0 X 10^3 Monocytes # (Auto) 0.4 0.0-1.0 X 10^3 Eosinophils # (Auto) 0.4 H 0.0-0.3 10^3/uL Basophils # (Auto) 0.0 0.0-0.1 10^3/uL Sodium Level 142 135-145 MMOL/L Potassium Level 4.4 3.6-5.0 MMOL/L Chloride Level 113 #H 98-107 MMOL/L Carbon Dioxide Level 20 L 21-32 MMOL/L Anion Gap 9 5-14 MMOL/L Blood Urea Nitrogen 15 7-18 MG/DL Creatinine 0.72 0.60-1.30 MG/DL Estimat Glomerular Filtration Rate > 60 BUN/Creatinine Ratio 21 Glucose Level 101 70-105 MG/DL Calcium Level 8.0 L 8.5-10.1 MG/DL Corrected Calcium 8.6 8.5-10.1 MG/DL Phosphorus Level 3.1 2.3-4.7 MG/DL Magnesium Level 0.9 *L 1.6-2.4 MG/DL Total Bilirubin 0.3 0.1-1.0 MG/DL Aspartate Amino Transf (AST/SGOT) 13 5-34 U/L Alanine Aminotransferase (ALT/SGPT) 11 0-55 U/L Alkaline Phosphatase 54 40-136 U/L Troponin I < 0.028 <0.028 NG/ML Total Protein 5.1 L 6.4-8.2 GM/DL Albumin 3.2 3.2-4.5 GM/DL Blood Gas Puncture Site R RAD Blood Gas Patient Temperature 35.2 Arterial Blood pH 7.25 *L 7.37-7.43 Arterial Blood Partial Pressure CO2 49 H 35-45 MMHG Arterial Blood Partial Pressure O2 106 H 79-93 MMHG Arterial Blood HCO3 22 L 23-27 MMOL/L Arterial Blood Total CO2 23.2 21.0-31.0 MMOL/L Arterial Blood Oxygen Saturation 98 94-100 % Arterial Blood Base Excess -4.9 L -2.5-2.5 MMOL/L [place] Test YES-POS Blood Gas Ventilator Setting NO Blood Gas Inspired Oxygen 21% Lactic Acid Level 1.22 0.50-2.00 MMOL/L Urine Opiates Screen POSITIVE H NEGATIVE Urine Oxycodone Screen NEGATIVE NEGATIVE Urine Methadone Screen NEGATIVE NEGATIVE Urine Propoxyphene Screen NEGATIVE NEGATIVE Urine Barbiturates Screen NEGATIVE NEGATIVE Ur Tricyclic Antidepressants Screen NEGATIVE NEGATIVE Urine Phencyclidine Screen NEGATIVE NEGATIVE Urine Amphetamines Screen NEGATIVE NEGATIVE Urine Methamphetamines Screen NEGATIVE NEGATIVE Urine Benzodiazepines Screen POSITIVE H NEGATIVE Urine Cocaine Screen NEGATIVE NEGATIVE Urine Cannabinoids Screen NEGATIVE NEGATIVE Test 07/28/19 05:05 07/28/19 06:08 Range/Units Glucometer 75 70-110 MG/DL Blood Gas Puncture Site L RAD Blood Gas Patient Temperature 35.2 Arterial Blood pH 7.25 *L 7.37-7.43 Arterial Blood Partial Pressure CO2 50 H 35-45 MMHG Arterial Blood Partial Pressure O2 109 H 79-93 MMHG Arterial Blood HCO3 22 L 23-27 MMOL/L Arterial Blood Total CO2 23.6 21.0-31.0 MMOL/L Arterial Blood Oxygen Saturation 98 94-100 % Arterial Blood Base Excess -4.5 L -2.5-2.5 MMOL/L [place] Test YES-POS Blood Gas Ventilator Setting NO Blood Gas Inspired Oxygen 30% Physical Exam Physical Exam Vital Signs Vital Signs - First Documented 07/27/19 07/28/19 14:15 03:24 Temp 36.2 Pulse 73 Resp 14 B/P (MAP) 108/51 (70) Pulse Ox 100 O2 Delivery Nasal Cannula O2 Flow Rate 2.00 FiO2 21 Capillary Refill : Less Than 3 Seconds Height, Weight, BMI Height: 5'1.00" Weight: 210lbs. oz. [id number]; 31.16 BMI Method:Stated General Appearance: WD/WN, Cachetic, Moderate Distress, Thin Eyes: Bilateral Eye PERRL, Bilateral Eye EOMI HEENT: TMs Normal, Pharynx Normal Neck: Normal Inspection, Non Tender Respiratory: Lungs Clear, No Accessory Muscle Use, Decreased Breath Sounds; No Rhonci, No Wheezing Cardiovascular: Regular Rate, Rhythm, No Edema, No Murmur Gastrointestinal: Non Tender, Soft, Abnormal Bowel Sounds Back: Normal Inspection, No CVA Tenderness, No Vertebral Tenderness Extremity: Normal Capillary Refill, Normal Inspection Neurologic/Psychiatric: Alert, Depressed Affect, Disoriented Skin: Normal Color, Warm/Dry, Pallor Lymphatic: No Adenopathy A/P-Cardiology Admission Diagnosis Acute change in mental status Acute respiratory failure Sinus bradycardia Hypotension Assessment/Plan Acute change in mental status with unresponsiveness secondary to over aggressive sedation, regaining consciousness and improving slowly Acute respiratory failure, respiratory depression, currently on BiPAP, monitored and managed by Dr. [place] Sinus bradycardia, probably secondary to hypoxemia, heart rate is better at this time, continue to monitor closely Sepsis, received antibiotic, following sepsis protocol, managed by medical team Generalized weakness and loss of energy, questionable secondary to sepsis. Continue to monitor at this point Hypertension, maintained on lisinopril as an outpatient. was hypotensive secondary to aggressive sedation, received IV fluids, continue to monitor blood pressure History of hyperlipidemia, maintained on statin, on hold for now Diabetes mellitus, maintained on metformin. Continue to monitor Patient name was on diazepam and Neurontin as an outpatient Gastroesophageal reflux disease Clinical Quality Measures DVT/VTE Risk/Contraindication: Risk Factor Score Per Nursin RFS Level Per Nursing on Admit: 4+=Very High HUNG REYES MD Jul 28, 2019 07:59 POS
[2019-07-28] MEDS: AZITHROMYCIN INJECTION 500 MG in NS (IVPB) 250 ML IV SCH (08:45)
[2019-07-28] MEDS: cefTRIAXone FOR IV USE 1,000 MG in WATER (STERILE) FOR INJECTION 10 ML IV SCH (08:45)
[2019-07-28] MEDS: SENNA W/DOCUSATE (SENOKOT S) TABLET PO SCH ×2 (08:45→19:54)
[2019-07-28 09:20] LABS: ABG BASE EXCESS -4.4 MMOL/L (-2.5-2.5); ABG OXYGEN SATURATION 98 % (94-100); ABG PCO2 48 MMHG (35-45); ABG PO2 98 MMHG (79-93)
[2019-07-28 09:24] LABS: ABG PH 7.27 (7.37-7.43); ALLENS TEST POSITIVE; INSPIRED O2 30%; PATIENT TEMP 36.3; VENTILATOR NO
--- NOTE | 2019-07-28 09:58 | Physical Therapy Evaluation ---
PT Evaluation-General Medical Diagnosis Admission Date Jul 27, 2019 at 16:50 Medical Diagnosis: sepsis, hypotension Onset Date: Jul 27, 2019 Therapy Diagnosis Therapy Diagnosis: weakness Height/Weight Height (Feet): 5 Height (Inches): 1.00 Weight (Pounds): 210 Precautions Precautions/Isolations: Standard Precautions Weight Bear Status Right Lower Extremity: Right Weight Bearing/Tolerated Left Lower Extremity: Left Weight Bearing/Tolerated Referral Physician: Sean Reason for Referral: Evaluation/Treatment Medical History Pertinent Medical History: DM, HTN, Neuropathy Current History EMS secondary to falls and confusion, found by home health Reviewed History: Yes Social History Home: Apartment Current Living Status: Alone Prior Prior Level of Function SCALE: Activities may be completed with or without assistive devices. 5-Pvapqndbtq-lpzerel completes the activity by him/herself with no assistance from a helper. 5-Set-up or Clean-up Assistance-helper sets up or cleans up; patient completes activity. [place] assists only prior to or following the activity. 4-Supervision or Touching Assistance-helper provides verbal cues and/or touching/steadying and/or contact guard assistance as patient completes activity. Assistance may be provided throughout the activity or intermittently. 3-Partial/Moderate Assistance-helper does LESS THAN HALF the effort. [place] lifts, holds or supports trunk or limbs, but provides less than half the effort. 2-Substantial/Maximal Assistance-helper does MORE THAN HALF the effort. [place] lifts or holds trunk or limbs and provides more than half the effort. 3-Npjxjiept-hlhjya does ALL the effort. Patient does none of the effort to complete the activity. Or, the assistance of 2 or more helpers is required for the patient to complete the activity. If activity was not attempted, code reason: 7-Patient Refused. 9-Not Applicable-not attempted and the patient did not perform the activity before the current illness, exacerbation or injury. 10-Not Attempted due to Environmental Limitations-(lack of equipment, weather restraints, etc.). 88-Not Attempted due to Medical Conditions or Safety Concerns. Bed Mobility: 6 Transfers (B,C,W/C): 6 Gait: 6 Indoor Mobility (Ambulation): Independent Prior Devices Use: Walker PT Evaluation-Current Subjective Patient agrees to PT to transfer to chair. States she lives in apartment alone with caregivers to check on her regularly. Reports no pain. Pain Numeric Pain Scale: 0-No Pain Location: No Pain Reported Objective Patient Orientation: Normal For Age Attachments: SCD's, Oxygen (BiPap), Muniz Catheter, IV ROM/Strength ROM Lower Extremities WFL Strength Lower Extremities Grossly 3/5 bilaterally Integumentary/Posture Integumentary See nursing notes Bowel Incontinence: No Bladder Incontinence: Muniz Cath Posture WFL Neuromuscular (Tone, Coordination, Reflexes) Grossly intact Sensory Vision: Wears Glasses (cataracts) Hearing: Functional Transfers Roll Left to Right (QC): 4 Sit to Lying (QC): 4 Lying to Sitting/Side of Bed(Q: 4 Sit to Stand (QC): 4 Chair/Mxw-fn-Stisp Xfer(QC): 4 Car Transfer (QC): 10 SBA bed mobility; CGA STS and transfer Gait Does the Patient Walk?: Yes Mode of Locomotion: Walk Anticipated Mode of Locomotion: Walk Walk 10 feet (QC): 88 Walk 50 ft with 2 Turns(QC): 88 Walk 150 ft (QC): 88 Walking 10ft/uneven surface-QC: 88 Gait Assistive Device: FWW Wheelchair Training Does the Pt Use a Wheelchair?: No Wheel 50 ft with 2 turns (QC): 9 Wheel 150 ft (QC): 9 Type of Wheelchair: Manual Stairs 1 Step (curb) (QC): 88 4 Steps (QC): 88 12 Steps (QC): 9 Balance Sitting Static: Normal Sitting Dynamic: Normal Standing Static: Normal Standing Dynamic: Normal Picking up an Object (QC): 88 Assessment/Needs Patient able to perform bed mobility SBA without difficulty or pain to sit to E OB. Patient able to stand and transfer to chair CGA. During bed mobility and transfers, O2 sats dropped to 75% but were able to return to 97% with a moment of rest. Patient did not report feeling SOA. Patient seated in chair with legs elevated at conclusion of treatment. Rehab Potential: Fair PT Structural Metal Fabricator Apprentice Goals Senior Care Goals PT Senior Care Goals Time Frame: Aug 12, 2019 Roll Left & Right (QC): 6 Sit to Lying (QC): 6 Lying-Sitting on Side/Bed(QC): 6 Sit to Stand (QC): 6 Chair/Oic-ul-Ycjlv Xfer(QC): 6 Toilet Transfer (QC): 6 Car Transfer (QC): 6 Does the Patient Walk: Yes Walk 10 feet (QC): 6 Walk 50ft with 2 Turns (QC): 6 Walk 150 ft (QC): 6 Walking 10ft on Uneven Surface: 6 1 Step (curb) (QC): 6 4 Steps (QC): 6 12 Steps (QC): 9 Picking up an Object (QC): 6 Does the Pt use WC or Scooter?: No Type: N/A Type: N/A PT Plan Problem List Problem List: Activity Tolerance, Functional Strength, Safety, Balance, Gait, Transfer, Bed Mobility Treatment/Plan Treatment Plan: Continue Plan of Care Treatment Plan: Bed Mobility, Education, Functional Activity Yohan, Functional Strength, Gait, Safety, Therapeutic Exercise, Transfers Treatment Duration: Aug 12, 2019 Frequency: 6 times per week Estimated Hrs Per Day: .25 hour per day Patient and/or Family Agrees t: Yes Time/GCodes Time In: 823 Time Out: 835 Total Billed Treatment Time: 12 Total Billed Treatment 1 visit EVModC 12min JENIFER MCCAIN PT Jul 28, 2019 09:58 POS
--- NOTE | 2019-07-28 10:00 | History & Physical-Hospitalist ---
LAITH DE JESUS,MED STUDENT 07/28/19 1000: History of Present Illness HPI/Chief Complaint Patient is a 68 y/o female who presented to the ED on 07/27 with altered mental status following a fall which was reported by EMS. She was found to have an early pneumonia, sepsis, and hypotension, so she was admitted to cardiac stepdown unit. She was later moved to ICU for increasing psychosis and agitation requiring chemical restraints. Today the patient denies having any memory of a fall yesterday. She is not in any pain at this time. Further history is difficult to obtain due to history of learning disability and dementia. Patient has a history of frequent falls and was recently hospitalized and discharged 07/14 for a similar incident which was complicated by UTI. At that time a discharge to a geriatric psychiatric facility was recommended but her DPOA dec lined and stated that they would care for her at home. Date Seen 07/28/19 Time Seen by a Provider: 07:56 Attending Physician Yen Whyte DO [facility] Referring Physician Date of Admission Jul 27, 2019 at 16:50 Home Medications & Allergies Home Medications Reviewed patient Home Medication Reconciliation performed by pharmacy medication reconciliations ip/mosaic technician and/or nursing. Patients Allergies have been reviewed. Allergies Allergies Coded Allergies aspirin (Unverified Adverse Reaction, Unknown, 01/01/19) Past Ttwevew-Lxfitz-Qcvmjb Hx Past Med/Social Hx: Reviewed Nursing Past Med/Soc Hx Patient Social History Alcohol Use: Denies Use Recreational Drug Use: No Recent Foreign Travel: No Contact w/other who traveled: No Recent Hopitalizations: No Recent Infectious Disease Expo: No Immunizations Up To Date Date of Pneumonia Vaccine: Dec 21, 2017 Date of Influenza Vaccine: May 24, 2019 Seasonal Allergies Seasonal Allergies: No Past Medical History Surgeries: Gallbladder Cardiac: Hypertension Neurological: Neuropathy Genitourinary: UTI-Chronic Gastrointestinal: Diverticulosis, Hiatal Hernia, Irritable Bowel Musculoskeletal: Chronic Back Pain, Fractures Endocrine: Diabetes, Non-Insulin dep HEENT: Cataract Psychosocial: Anxiety, Depression History of Blood Disorders: No Family History Patient reports no known family medical history. Review of Systems Constitutional: no symptoms reported EENTM: no symptoms reported Respiratory: No cough; short of breath Cardiovascular: no symptoms reported Gastrointestinal: no symptoms reported Genitourinary: no symptoms reported Musculoskeletal: no symptoms reported Skin: no symptoms reported Psychiatric/Neurological: See HPI Physical Exam Physical Exam Vital Signs Vital Signs - First Documented 07/27/19 07/28/19 14:15 03:24 Temp 36.2 Pulse 73 Resp 14 B/P (MAP) 108/51 (70) Pulse Ox 100 O2 Delivery Nasal Cannula O2 Flow Rate 2.00 FiO2 21 Capillary Refill : Less Than 3 Seconds Height, Weight, BMI Height: 5'1.00" Weight: 210lbs. oz. 95.658003af; 31.16 BMI Method:Stated General Appearance: No Apparent Distress, Chronically ill, Other (wearing bipap) HEENT: PERRL/EOMI, Moist Mucous Membranes Neck: Non Tender, Supple Respiratory: Chest Non Tender, Lungs Clear, No Accessory Muscle Use Cardiovascular: Regular Rate, Rhythm, No Murmur Gastrointestinal: Non Tender, Soft Extremity: No Calf Tenderness, No Pedal Edema Neurologic/Psychiatric: Alert, Disoriented Skin: Normal Color, Warm/Dry Lymphatic: No Adenopathy Results Results/Procedures Labs Laboratory Tests 07/27/19 13:52 07/28/19 02:55 Patient resulted labs reviewed. Assessment/Plan Admission Diagnosis Admission Status: Inpatient Order (span 2 midnights) Reason for Inpatient Admission: Sepsis Pneumonia Hypotension Assessment and Plan Assessment: Sepsis Pneumonia Altered mental status Agitation with aggression requiring chemical restraints Hypotension Hypomagnesemia Dementia History of frequent falls Plan: Ceftriaxone and Azithromycin IV fluids Pulmonology consulted - will repeat head CT and ABGs Cardiology consulted - Echo today Replace magnesium Supportive care Clinical Quality Measures DVT/VTE Risk/Contraindication: Risk Factor Score Per Nursin RFS Level Per Nursing on Admit: 4+=Very High YEN WHYTE DO 07/28/19 2223: History of Present Illness HPI/Chief Complaint Chief complaint: Altered mental status. HPI: This is a 68yoWF clinic Pt of [facility] who is known to me from three weeks ago who has a long-standing learning disability and dementia who is taken care of by her sister and has caregivers at home who has presented to the [place] ER with altered mental status and hypoxia found to have to pneumonia with significant decompensation and could not be managed at home. She was admitted to ICU 12 with sepsis but began having significant agitation and aggression that did not resolve with Haldol, Ativan and Geodon, she was required to be on Precedex, she was having altered mental status and unresponsiveness this morning after Dr. Red[place] evaluation and she did respond to Romazicon reverse the benzodiazepines. At this current time, Pt is on BiPAP and echocardiogram is being performed. Past Zkevkqw-Jgsgsv-Wjdhcq Hx Past Med/Social Hx: Reviewed Nursing Past Med/Soc Hx, Reviewed and Corrections made Patient Social History Marrital Status: single Employed/Student: unemployed Family History Patient reports no known family medical history. Review of Systems Constitutional: see HPI Psychiatric/Neurological: Weakness Physical Exam Physical Exam General Appearance: Anxious, Chronically ill, Mild Distress, Other (wearing bipap) Respiratory: No Accessory Muscle Use, No Respiratory Distress, Crackles, Decreased Breath Sounds Cardiovascular: Regular Rate, Rhythm Neurologic/Psychiatric: Alert, Disoriented Assessment/Plan Admission Diagnosis Assessment: AMS Delirium Resp failure maintained on biPAP Learning disability lifelong Chronic debility Plan: ICU care Monitor closely Admission Status: Inpatient Order (span 2 midnights) Reason for Inpatient Admission: Severe resp distress Diagnosis/Problems Diagnosis/Problems (1) Sepsis with hypotension Status: Acute (2) Diabetes mellitus (3) Neuropathy (4) Renal failure (5) Encephalopathy (6) Aggression (7) RLS (restless legs syndrome) (8) Pneumonia Status: Acute Qualifiers: Pneumonia type: due to unspecified organism Laterality: bilateral Lung location: lower lobe of lung Qualified Codes: J18.1 - Lobar pneumonia, unspecified organism (9) Risk for falls (10) Pneumonia Supervisory-Addendum Brief Verification & Attestation Participated in pt care: history, MDM, physical Personally performed: exam, history, MDM, supervision of care Care discussed with: Medical Student Procedures: n/a Results interpretation: Verified all documentation Verification and Attestation of Medical Student E/M Service A medical student performed and documented this service in my presence. I reviewed and verified all information documented by the medical student and made modifications to such information, when appropriate. I personally performed the physical exam and medical decision making. Yen Whyte, Jul 28, 2019,22:23 LAITH DE JESUS,MED STUDENT Jul 28, 2019 10:00 YEN WASHINGTON DO Jul 28, 2019 22:23 POS
--- NOTE | 2019-07-28 10:16 | NUR ---
IRF Evaluation Instructed by Dr. Estrada to disregard order to evaluate patient for IRF. Thank you.
--- NOTE | 2019-07-28 10:38 | Occupational Therapy Eval ---
OT Evaluation-General/PLF Medical Diagnosis Admission Date Jul 27, 2019 at 16:50 Medical Diagnosis: sepsis, hypotension Onset Date: Jul 27, 2019 Therapy Diagnosis Therapy Diagnosis: Decreased ADL function Height/Weight Height (Feet): 5 Height (Inches): 1.00 Weight (Pounds): 210 Precautions Precautions/Isolations: Standard Precautions Safety Interventions: Bed Exit Alarm, Diversional Activity, Reorient-PRN Referral Physician: Sean Referral Reason: Activity Tolerance, Self Care, Evaluation/Treatment, Strengthening/ROM Medical History Pertinent Medical History: DM, HTN, Neuropathy Additional Medical History falls, HTN, neuropathy, chronic UTI, hiatal hernia, fractures, non insulin dependent DM, anxiety/ depression Current History Pt presents with hypoxia and pneumonia. Reviewed History: Yes Social History Home: Apartment Current Living Status: Alone Entry Into Home: Stairs With Railing (2) Steps Into Home: 2 ADL-Prior Level of Function SCALE: Activities may be completed with or without assistive devices. 8-Irdchiniuw-plvxspx completes the activity by him/herself with no assistance from a helper. 5-Set-up or Clean-up Assistance-helper sets up or cleans up; patient completes activity. [place] assists only prior to or following the activity. 4-Supervision or Touching Assistance-helper provides verbal cues and/or touching/steadying and/or contact guard assistance as patient completes activity. Assistance may be provided throughout the activity or intermittently. 3-Partial/Moderate Assistance-helper does LESS THAN HALF the effort. [place] lifts, holds or supports trunk or limbs, but provides less than half the effort. 2-Substantial/Maximal Assistance-helper does MORE THAN HALF the effort. [place] lifts or holds trunk or limbs and provides more than half the effort. 1-Vfbpnnver-gzszmc does ALL the effort. Patient does none of the effort to complete the activity. Or, the assistance of 2 or more helpers is required for the patient to complete the activity. If activity was not attempted, code reason: 7-Patient Refused. 9-Not Applicable-not attempted and the patient did not perform the activity before the current illness, exacerbation or injury. 10-Not Attempted due to Environmental Limitations-(lack of equipment, weather restraints, etc.). 88-Not Attempted due to Medical Conditions or Safety Concerns. ADL PLOF Comments Pt states that she is independent with tasks with use of FWW and cane. Pt states she lives at home with mom and dad and that they are coming home after [place], as they are currently at a for her brother. Per previous hx notes, pt lives alone. Self Care: Unknown Functional Cognition: Unknown DME/Equipment Comments joselo LUNA per pt. Drive Self: No OT Current Status Subjective Pt pleasantly confused, states "I know you!" upon OT entry. Pt oriented to person only. Denies pain, very talkative requiring cues for yes/ no answers due to BiPAP. Pt agreeable to OT evaluation. Mental Status/Objective Patient Orientation: Person Attachments: IV, Oxygen (BiPAP) Current Glasses/Contacts: Yes Hearing Aids: No Dentures/Partials: Yes Hand Dominance: Right Upper Extremity ROM WFL BUE Upper Extremity Coordination WFL BUE Upper Extremity Sensation WFL BUE Upper Extremity Strength Impaired bilaterally ADL-Treatment Eating (QC): 7 Oral Hygiene (QC): 7 Shower/Bathe Self (QC): 7 Upper Body Dressing (QC): 7 Lower Body Dressing (QC): 7 On/Off Footwear (QC): 7 Toileting Hygiene (QC): 7 Toilet Transfer (QC): 7 Other Treatments Pt completes evaluation, stating she needs her mother but can't get a hold of her. Pt pleasant to therapy, though denies ADLs and out of bed activity as she "just came from the chair," nursing agrees. Pt completes UB AROM WFL, though shoulders weak. Pt able to touch face and complete finger opposition with ease. Pt left in bed, all needs met, call light in reach, almond blancher hand present. Nursing notified of position and orientation/ confusion. Education OT Patient Education: Correct positioning, Rehab process, Safety issues Teaching Recipient: Patient Teaching Methods: Demonstration, Discussion Response to Teaching: Return Demonstration OT Longterm Goals Ammonia Box Operator Goals Time Frame: Aug 04, 2019 Eating (QC): 6 Oral Hygiene (QC): 6 Toileting Hygiene (QC): 6 Shower/Bathe Self (QC): 6 Upper Body Dressing (QC): 6 Lower Body Dressing (QC): 6 On/Off Footwear (QC): 6 Additional Goals: 1-Demonstrate ADL Tasks, 2-Verbalize Understanding, 3- ImproveStrength/Yohan 1=Demonstrate adherence to instructed precautions during ADL tasks. 2=Patient will verbalize/demonstrate understanding of assistive devices/modifications for ADL. 3=Patient will improve strength/tolerance for activity to enable patient to perform ADL's. OT Education/Plan Problem List/Assessment Assessment: Decreased Activ Tolerance, Decreased Safety Aware, Decreased UE Strength, Impaired Cognition, Impaired Funct Balance, Impaired I ADL's, Impaired Self-Care Skills Discharge Recommendations Plan/Recommendations: Continue POC Patient/Family Goals "not get pneumonia again." Treatment Plan/Plan of Care Treatment,Training & Education: Yes Patient would benefit from OT for education, treatment and training to promote independence in ADL's, mobility, safety and/or upper extremity function for ADL's. Plan of Care: ADL Retraining, Concurrent Therapy, Functional Mobility, Group Exercise/Act as Ind, UE Funct Exercise/Act Treatment Duration: Aug 04, 2019 Frequency: 5 times per week Estimated Hrs Per Day: .25 hour per day Agreement: Yes Rehab Potential: Fair Time/GCodes Start Time: 10:06 Stop Time: 10:23 Total Time Billed (hr/min): 17 Billed Treatment Time JOSÉ Michele (17) KATIE DE PAZ OTR Jul 28, 2019 10:38 POS
[2019-07-28 11:01] LABS: ALANINE AMINOTRANSFERASE 12 U/L (0-55); ALBUMIN 3.5 GM/DL (3.2-4.5); ALKALINE PHOSPHATASE 61 U/L (40-136); BILIRUBIN,TOTAL 0.3 MG/DL (0.1-1.0); BUN/CREATININE RATIO 16; CALCIUM 8.5 MG/DL (8.5-10.1); CARBON DIOXIDE 22 MMOL/L (21-32); CREATININE SERUM 0.67 MG/DL (0.60-1.30); GFR ESTIMATED > 60; GLUCOSE 138 MG/DL (70-105); POTASSIUM 4.1 MMOL/L (3.6-5.0); SODIUM 144 MMOL/L (135-145); TOTAL PROTEIN 5.6 GM/DL (6.4-8.2)
[2019-07-28 11:05] LABS: CHLORIDE 111 MMOL/L (98-107)
[2019-07-28 11:29] LABS: MAGNESIUM 1.8 MG/DL (1.6-2.4); PHOSPHORUS 2.5 MG/DL (2.3-4.7)
--- NOTE | 2019-07-28 11:33 | NUR ---
UNABLE TO SPEAK WITH THE PATIENT ABOUT MEDICATIONS. I REVIEWED THEM THEY WERE REVIEWED AT HER LAST ADMISSION, SEE PREVIOUS VISIT NOTES FOR DETAILS. I DID REMOVE THE CEFDINIR THAT WAS PRESCRIBED AT HER LAST DISCHARGE, IT SHOULD BE COMPLETE. I CALLED AND VERIFIED WITH [facility] THAT THEY HAVE NOT DISPENSED ANYTHING TO THE PATIENT SINCE HER LAST ADMISSION HERE EXCEPT FOR THE CEFDINIR THAT WAS ORDERED AT DISCHARGE.
[2019-07-28] MEDS ORDERED: NON-FORMULARY MEDICATION 1 EA EA (Diazepam 5 MG) PO PRN (14:15)
[2019-07-28] MEDS ORDERED: CHLORHEXIDINE 0.12% SOLN 15 ML (PERIDEX) UDC PO PRN (14:15)
[2019-07-28] MEDS ORDERED: PROMETHAZINE 25 MG (PHENERGAN) TAB PO PRN (14:15)
[2019-07-28] MEDS ORDERED: NON-FORMULARY MEDICATION 1 EA EA (Simethicone (Gas-X) 125 MG) PO PRN (14:15)
[2019-07-28] MEDS ORDERED: [UNRECOGNIZED DRUG - OTHER] NSEACH PRN (14:15)
[2019-07-28] MEDS ORDERED: SODIUM CHLORIDE NSEACH PRN (14:15)
[2019-07-28] MEDS ORDERED: ALOE VERA NSEACH PRN (14:15)
[2019-07-28] MEDS ORDERED: SALINE NASAL SPRAY (OCEAN) 45 ML BTL PRN (14:45)
[2019-07-28] MEDS ORDERED: DEXMEDETOMIDINE INJECTION 1,000 MCG in NS (IVPB) 240 ML IV PRN (14:45)
[2019-07-28] MEDS ORDERED: SIMETHICONE 80 MG (MYLICON) CHEW PO PRN (14:45)
[2019-07-28] MEDS ORDERED: DIAZEPAM 5 MG (VALIUM) TABLET PO PRN (14:45)
[2019-07-28] MEDS ORDERED: NON-FORMULARY MEDICATION 1 EA EA (Gabapentin 800 MG) PO SCH (17:00)
[2019-07-28] MEDS: DICYCLOMINE 10 MG (BENTYL) CAP PO SCH ×2 (17:45→19:39)
[2019-07-28] MEDS: GABAPENTIN 400 MG (NEURONTIN) CAP PO SCH ×2 (17:45→20:50)
[2019-07-28] MEDS: HALOPERIDOL 5 MG/ML (HALDOL) AMP IM PRN (18:00)
[2019-07-28] MEDS ORDERED: rOPINIRole 0.25 MG (REQUIP) TAB PO SCH (18:00)
[2019-07-28] MEDS ORDERED: NON-FORMULARY MEDICATION 1 EA EA (Ropinirole HCl 0.5 MG) PO SCH (18:00)
[2019-07-28] MEDS: NS IV 1000 ML 1,000 ML IV SCH (18:06)
[2019-07-28] MEDS: GABAPENTIN 100 MG (NEURONTIN) CAP PO SCH (19:39)
[2019-07-28] MEDS: risperiDONE 2 MG (RisperDAL) TAB PO SCH (19:39)
[2019-07-28] MEDS: OXYBUTYNIN (DITROPAN) 5 MG TAB PO SCH (19:39)
[2019-07-28] MEDS: FAMOTIDINE 20 MG (PEPCID) TABLET PO SCH (19:40)
[2019-07-28] MEDS: ENOXAPARIN 40 MG/0.4 ML (LOVENOX) SYR SC SCH (19:45)
[2019-07-28] MEDS: POLYETHYLENE GLYCOL 17 GM (MIRALAX) PACK PO SCH (19:53)
[2019-07-28] MEDS ORDERED: NON-FORMULARY MEDICATION 1 EA EA (Famotidine 20 MG) PO SCH (21:00)
[2019-07-28] MEDS ORDERED: OXYBUTYNIN ER 5 MG (DITROPAN XL) TAB NON-FORMULARY PO SCH (21:00)
[2019-07-29] VITALS (17 sets, daily range): BP systolic 104–166; BP diastolic 66–87
[2019-07-29] MEDS: LACTATED RINGERS 1,000 ML IV SCH ×2 (02:12→05:53)
--- NOTE | 2019-07-29 03:14 | Pulmonary Progress Note ---
Subjective Time Seen by a Provider: 03:22 Subjective/Events-last exam Currently very lethargic Sepsis Event Evaluation Height, Weight, BMI Height: 5'1.00" Weight: 210lbs. oz. 95.505642ql; 31.16 BMI Method:Stated Focused Exam Lactate Level 07/27/19 13:52: Lactic Acid Level 1.40 07/28/19 04:45: Lactic Acid Level 1.22 Exam Exam Vital Signs Date Time Temp Pulse Resp B/P (MAP) Pulse Ox O2 Delivery O2 Flow Rate FiO2 07/29/19 01:43 65 12 99 30.00 07/29/19 01:00 75 12 104/66 (79) 94 NIV Bilevel 21.00 07/29/19 00:50 72 07/29/19 00:00 75 15 109/66 (80) 98 NIV Bilevel 21.00 07/28/19 23:00 81 12 114/66 (82) 100 NIV Bilevel 30.00 07/28/19 22:00 74 15 94/53 (67) 95 NIV Bilevel 30.00 07/28/19 21:18 87 18 96 30.00 07/28/19 21:00 81 22 99/58 (72) 96 NIV Bilevel 30.00 07/28/19 20:00 96 Nasal Cannula 3.00 07/28/19 20:00 96 Nasal Cannula 3.00 07/28/19 20:00 80 23 105/56 (72) 82 Nasal Cannula 3.00 07/28/19 20:00 37.2 07/28/19 19:00 103 22 112/54 (73) 93 Room Air 07/28/19 18:49 107 07/28/19 18:12 93 Nasal Cannula 3.00 07/28/19 18:00 99 15 138/94 (109) 96 Nasal Cannula 3.00 07/28/19 17:00 121 53 124/87 (99) Nasal Cannula 3.00 07/28/19 16:00 100 40 126/77 (93) Nasal Cannula 3.00 07/28/19 16:00 96 Nasal Cannula 3.00 07/28/19 16:00 96 Nasal Cannula 3.00 07/28/19 15:00 92 23 139/99 (112) 94 Nasal Cannula 3.00 07/28/19 14:22 93 Nasal Cannula 3.00 07/28/19 14:00 85 14 142/80 (100) 93 Nasal Cannula 3.00 07/28/19 13:00 90 12 102/62 (75) 94 Nasal Cannula 3.00 07/28/19 12:34 Nasal Cannula 3.00 07/28/19 12:34 Nasal Cannula 3.00 07/28/19 12:30 Nasal Cannula 3.00 07/28/19 12:20 72 07/28/19 12:00 82 140/90 (107) 91 NIV Bilevel 30.00 07/28/19 12:00 35.7 07/28/19 11:00 77 16 145/71 (95) 92 NIV Bilevel 30.00 07/28/19 10:00 76 26 135/57 (83) NIV Bilevel 30.00 07/28/19 09:00 78 7 133/86 (102) 100 NIV Bilevel 30.00 07/28/19 08:38 NIV Bilevel 30 07/28/19 08:05 NIV Bilevel 30 07/28/19 08:00 36.3 07/28/19 08:00 73 18 171/88 (115) 100 NIV Bilevel 30.00 07/28/19 07:22 76 21 97 30.00 07/28/19 07:00 75 10 NIV Bilevel 30.00 07/28/19 07:00 74 07/28/19 06:00 41 11 138/82 (100) 98 NIV Bilevel 30.00 07/28/19 05:00 43 11 118/74 (89) 97 NIV Bilevel 30.00 07/28/19 04:43 NIV Bilevel 30.00 07/28/19 04:00 45 11 102/56 (71) 100 NIV Bilevel 21.00 07/28/19 03:25 NIV Bilevel 21 07/28/19 03:24 NIV Bilevel 21 07/28/19 03:24 35.7 07/28/19 03:17 NIV Bilevel 21.00 07/28/19 03:15 45 12 100 21.00 I & O 07/29/19 07:00 Intake Total 2680 ml Output Total 3400 ml Balance -720 ml Height & Weight Height: 5'1.00" Weight: 210lbs. oz. 95.328240wc; 31.16 BMI Method:Stated General Appearance: Anxious, Chronically ill, Mild Distress, Other (wearing bipap) HEENT: PERRL/EOMI, Moist Mucous Membranes Neck: Non Tender, Supple Respiratory: No Accessory Muscle Use, No Respiratory Distress, Crackles, Decreased Breath Sounds Cardiovascular: Regular Rate, Rhythm Capillary Refill: Less Than 3 Seconds Extremity: No Calf Tenderness, No Pedal Edema Neurologic/Psychiatric: Alert, Disoriented Skin: Normal Color, Warm/Dry Lymphatic: No Adenopathy Results Lab Laboratory Tests 07/27/19 13:52 07/28/19 02:55 07/28/19 10:25 Assessment/Plan Assessment/Plan Acute respiratory failure secondary to over sedation -Repeat ABG may need intubation -Pt is minimally responsive to painful stimuli -Will give narcan x 1 -Check accu check -- 75 -Repeat CT of head secondary to frequent falls will do with and without contrast -Precedex has been off since 2am Lethargic was psychosis yesterday -Currently on BiPAP -Repeat ABG pending -Decreased Neurontin -D/C precedex, fentanyl, Ativan -Monitor close Bradycardia -Monitor close Metabolic acidosis - probably secondary to dehydration -Repeat Lactic acid -monitor Hypomagnesium PNA -Rocephin and azithromycin Frequent falls. -Ct head negative x2 JASMIN KAISER DO Jul 29, 2019 03:14 POS
[2019-07-29 03:26] LABS: ABG BASE EXCESS 1.7 MMOL/L (-2.5-2.5); ABG OXYGEN SATURATION 97 % (94-100); ABG PCO2 40 MMHG (35-45); ABG PH 7.42 (7.37-7.43); ABG PO2 77 MMHG (79-93); ABG TCO2 27.3 MMOL/L (21.0-31.0)
[2019-07-29 03:37] LABS: ALLENS TEST POSITIVE; INSPIRED O2 30%; PATIENT TEMP 36.1; VENTILATOR NO
[2019-07-29 03:53] LABS: BUN/CREATININE RATIO 10; CALCIUM 8.3 MG/DL (8.5-10.1); CARBON DIOXIDE 24 MMOL/L (21-32); CHLORIDE 112 MMOL/L (98-107); CREATININE SERUM 0.61 MG/DL (0.60-1.30); GFR ESTIMATED > 60; GLUCOSE 118 MG/DL (70-105); MAGNESIUM 1.4 MG/DL (1.6-2.4); SODIUM 143 MMOL/L (135-145)
[2019-07-29] MEDS: POTASSIUM CL 10MEQ/50ML IVPB 50 ML IV SCH (05:52)
[2019-07-29] MEDS: MAGNESIUM 1 GM/100 ML IVPB 100 ML IV SCH ×3 (05:52→10:47)
[2019-07-29] MEDS: KCL 20 MEQ TAB (K-DUR) PO SCH (05:53)
[2019-07-29] MEDS ORDERED: RT-ALBUTEROL/IPRATROPIUM 3 ML (DUONEB) VIAL ONE (06:20)
[2019-07-29] MEDS: RT-ALBUTEROL/IPRATROPIUM 3 ML (DUONEB) VIAL INH SCH ×4 (06:44→20:19)
[2019-07-29 07:38] LABS: BASOPHILS % (AUTO) 0 % (0-10); EOSINOPHILS # (AUTO) 0.2 10^3/uL (0.0-0.3); EOSINOPHILS % (AUTO) 4 % (0-10); HEMATOCRIT 30 % (35-52); HEMOGLOBIN 9.4 G/DL (11.5-16.0); LYMPHOCYTES % (AUTO) 19 % (12-44); MEAN CORPUSCULAR HEMOGLOBIN 30 PG (25-34); MEAN CORPUSCULAR HGB CONC 31 G/DL (32-36); MEAN CORPUSCULAR VOLUME 95 FL (80-99); MONOCYTES # (AUTO) 0.5 X 10^3 (0.0-1.0); MONOCYTES % (AUTO) 9 % (0-12); NEUTROPHILS # (AUTO) 3.4 X 10^3 (1.8-7.8); NEUTROPHILS % (AUTO) 67 % (42-75); PLATELET COUNT 160 10^3/uL (130-400); RED CELL DISTRIBUTION WIDTH 13.2 % (10.0-14.5); WHITE BLOOD COUNT 5.1 10^3/uL (4.3-11.0)
--- NOTE | 2019-07-29 08:32 | Diagnostic Imaging Report ---
Portable erect AP chest at 323 hours. INDICATION: Dyspnea. FINDINGS: The appearance of the chest has improved since the prior exam of 07/28/2019 as the atelectasis/infiltrate in the left perihilar region seen previously has essentially resolved. The band of atelectasis in the right lower lobe noted on the prior exam has also cleared. The lungs are now well aerated. There is no sign of a pleural effusion. The heart is stable in size. The mediastinum is not widened. The osseous structures are intact. IMPRESSION: The appearance of the chest has improved since the prior exam as both lungs are much better aerated. There is no evidence for active disease at this time. Dictated by: Dictated on workstation # [id number]
[2019-07-29] MEDS: cefTRIAXone FOR IV USE 1,000 MG in WATER (STERILE) FOR INJECTION 10 ML IV SCH (08:38)
[2019-07-29] MEDS: DULoxetine 30 MG (CYMBALTA) CAP PO SCH (08:39)
[2019-07-29] MEDS: CYANOCOBALAMIN 1,000 MCG (VITAMIN B-12) TABLET PO SCH (08:39)
[2019-07-29] MEDS: risperiDONE 2 MG (RisperDAL) TAB PO SCH ×2 (08:39→20:47)
[2019-07-29] MEDS: FAMOTIDINE 20 MG (PEPCID) TABLET PO SCH ×2 (08:39→20:46)
[2019-07-29] MEDS: OXYBUTYNIN (DITROPAN) 5 MG TAB PO SCH ×2 (08:39→20:47)
[2019-07-29] MEDS: FOLIC ACID 1 MG TAB PO SCH (08:39)
[2019-07-29] MEDS: ETODOLAC 300 MG (LODINE) CAP PO SCH (08:40)
[2019-07-29] MEDS: DICYCLOMINE 10 MG (BENTYL) CAP PO SCH ×3 (08:40→20:50)
[2019-07-29] MEDS: SENNA W/DOCUSATE (SENOKOT S) TABLET PO SCH ×2 (08:40→20:47)
[2019-07-29] MEDS: lisINopril 20 MG (PRINIVIL) TABLET PO SCH (08:42)
[2019-07-29] MEDS: AZITHROMYCIN INJECTION 500 MG in NS (IVPB) 250 ML IV SCH (08:43)
[2019-07-29] MEDS: FLUTICASONE NASAL SPRAY (FLONASE) 16 GM BTL NS SCH (08:43)
[2019-07-29] MEDS ORDERED: NON-FORMULARY MEDICATION 1 EA EA (Polyethylene Glycol 3350 (Miralax) 17 GM) PO SCH (09:00)
[2019-07-29] MEDS ORDERED: NON-FORMULARY MEDICATION 1 EA EA (Duloxetine HCl 60 MG) PO SCH (09:00)
[2019-07-29] MEDS ORDERED: NON-FORMULARY MEDICATION 1 EA EA (Lutein 20 MG) PO SCH (09:00)
--- NOTE | 2019-07-29 09:12 | Cardiology Progress Note ---
Subjective Date Seen by Provider: Jul 29, 2019 Time Seen by Provider: 09:09 Subjective/Events-last exam patient is sitting in a chair comfortably, still slightly confused. No chest pain Review of Systems General: No Chills, No Night Sweats; Fatigue; No Malaise, No Appetite, No Other HEENT: No Head Aches, No Visual Changes, No Eye Pain, No Ear Pain, No Dysphasia, No Sinus Congestion, No Post Nasal Drip, No Sore Throat, No Other Pulmonary: Dyspnea; No Cough, No Pleuritic Chest Pain, No Other Cardiovascular: No: Chest Pain, Palpitations, Orthopnea, Paroxysmal Noc. Dyspnea, Edema, Lt Headedness, Other Focused Exam Lactate Level 07/27/19 13:52: Lactic Acid Level 1.40 07/28/19 04:45: Lactic Acid Level 1.22 Objective-Cardiology Exam Last Set of Vital Signs Vital Signs 07/28/19 07/29/19 07/29/19 20:00 08:00 08:17 Temp 37.2 Pulse 57 Resp 17 B/P (MAP) 145/74 (97) Pulse Ox 99 O2 Delivery Nasal Cannula O2 Flow Rate 3.00 Capillary Refill : Less Than 3 Seconds I&O Intake and Output 07/29/19 00:00 Intake Total 4180 ml Output Total 4100 ml Balance 80 ml Intake Oral 830 ml IV Total 3350 ml Output Urine Total 4100 ml General: Alert, Oriented X3, Cooperative HEENT: Atraumatic, PERRLA Neck: Supple, No JVD, No Thyromegaly Lungs: Clear to Auscultation, Normal Air Movement Heart: Regular Rate, Normal S1, Normal S2, No Murmurs Abdomen: Normal Bowel Sounds, Soft, No Tenderness, No Hepatosplenomegaly, No Masses Extremities: No Clubbing, No Cyanosis, No Edema, Normal Pulses, No Tenderness/Swelling Skin: No Rashes, No Breakdown, No Significant Lesion Neuro: Normal Gait, Normal Speech, Strength at 5/5 X4 Ext, Normal Tone, Sensation Intact Psych/Mental Status: Mood NL Results Lab Laboratory Tests 07/28/19 10:25 07/29/19 02:50 A/P-Cardiology Admission Diagnosis Acute change in mental status Acute respiratory failure Sinus bradycardia Hypotension Assessment/Plan Acute change in mental status with unresponsiveness secondary to over aggressive sedation, currently she is awake and oriented but still confused Status post respiratory failure with respiratory depression, better at this time. Status post sinus bradycardia probably secondary to hypoxemia. Better that this time. Heart rate is in the 90scontinue to monitor Sepsis, received antibiotic, following sepsis protocol, managed by medical team Generalized weakness and loss of energy, questionable secondary to sepsis. Continue to monitor at this point Hypertension, maintained on lisinopril as an outpatient. was hypotensive secondary to aggressive sedation, continue to monitor blood pressure at this History of hyperlipidemia, maintained on statin, on hold for now Diabetes mellitus, maintained on metformin. Continue to monitor Patient name was on diazepam and Neurontin as an outpatient Gastroesophageal reflux disease Clinical Quality Measures DVT/VTE Risk/Contraindication: Risk Factor Score Per Nursin RFS Level Per Nursing on Admit: 4+=Very High HUNG REYES MD Jul 29, 2019 09:12 POS
--- NOTE | 2019-07-29 09:46 | Physical Therapy Daily Note ---
PT Daily Note-Current Subjective Patient asleep prior to tx but agrees to transfer to chair. Patient is confused and asking about her dog. States she has no pain but is very tired and reluctant to get up. Pain Numeric Pain Scale: 0-No Pain Location: No Pain Reported Mental Status Patient Orientation: Confused Attachments: SCD's, Oxygen, Muniz Catheter, IV Transfers SCALE: Activities may be completed with or without assistive devices. 2-Ntdksprspj-jlkswdv completes the activity by him/herself with no assistance from a helper. 5-Set-up or Clean-up Assistance-helper sets up or cleans up; patient completes activity. [place] assists only prior to or following the activity. 4-Supervision or Touching Assistance-helper provides verbal cues and/or touching/steadying and/or contact guard assistance as patient completes ac tivity. Assistance may be provided throughout the activity or intermittently. 3-Partial/Moderate Assistance-helper does LESS THAN HALF the effort. [place] lifts, holds or supports trunk or limbs, but provides less than half the effort. 2-Substantial/Maximal Assistance-helper does MORE THAN HALF the effort. [place] lifts or holds trunk or limbs and provides more than half the effort. 8-Tuiusnszp-dghuat does ALL the effort. Patient does none of the effort to complete the activity. Or, the assistance of 2 or more helpers is required for the patient to complete the activity. If activity was not attempted, code reason: 7-Patient Refused. 9-Not Applicable-not attempted and the patient did not perform the activity before the current illness, exacerbation or injury. 10-Not Attempted due to Environmental Limitations-(lack of equipment, weather restraints, etc.). 88-Not Attempted due to Medical Conditions or Safety Concerns. Roll Left & Right (QC): 4 Lying to Sitting/Side of Bed(Q: 4 Sit to Stand (QC): 4 Chair/Ynj-rf-Ajhkh Xfer(QC): 4 Weight Bearing Right Lower Extremity: Right Weight Bearing/Tolerated Left Lower Extremity: Left Weight Bearing/Tolerated Assessment Patient required SBA and encouragement to sit to EOB from supine. Prior to transfer, nursing removed BiPap and put patient on 3L O2 nasal cannula. During transfer, O2 dropped to 82% and patient reminded to breath in through nose and take deep breaths. Required Zak to stand and transfer to chair. O2 sats did not return to above 90%, O2 increased to 5L for 30s and patient was able to recover. O2 held at 98-100% when returned to 3L O2. Patient set up with breakfast and all other needs met. Nursing notified of O2 sats and continued confusion. PT Half-Way Goals Half-Way Goals PT [employer] Teacher Goals Time Frame: Aug 12, 2019 Roll Left & Right (QC): 6 Sit to Lying (QC): 6 Lying-Sitting on Side/Bed(QC): 6 Sit to Stand (QC): 6 Chair/Igr-zj-Nqlpp Xfer(QC): 6 Toilet Transfer (QC): 6 Car Transfer (QC): 6 Does the Patient Walk: Yes Walk 10 feet (QC): 6 Walk 50ft with 2 Turns (QC): 6 Walk 150 ft (QC): 6 Walking 10ft on Uneven Surface: 6 1 Step (curb) (QC): 6 4 Steps (QC): 6 12 Steps (QC): 9 Picking up an Object (QC): 6 Does the Pt use WC or Scooter?: No Type: N/A Type: N/A PT Plan Treatment/Plan Treatment Plan: Continue Plan of Care Treatment Plan: Bed Mobility, Education, Functional Activity Yohan, Functional Strength, Gait, Safety, Therapeutic Exercise, Transfers Treatment Duration: Aug 12, 2019 Frequency: 6 times per week Estimated Hrs Per Day: .25 hour per day Patient and/or Family Agrees t: Yes Time/GCodes Time In: 806 Time Out: 825 Total Billed Treatment Time: 19 Total Billed Treatment 1 visit FA 19min JENIFER MCCAIN PT Jul 29, 2019 09:46 POS
--- NOTE | 2019-07-29 10:41 | Occupational Ther Daily Note ---
OT Current Status-Daily Note Subjective No c/o of pain. Nurse presents and reports pt still confused but better than yesterday. Appearance Pt laying in bed talking to the nurse. Pt agrees to work with HICKEY. Mental Status/Objective Patient Orientation: Person, Confused Attachments: IV, Oxygen ADL-Treatment Therapy Code Descriptions/Definitions Functional [place] Measure: 0=Not Assessed/NA 4=Minimal Assistance 1=Total Assistance 5=Supervision or Setup 2=Maximal Assistance 6=Modified [place] 3=Moderate Assistance 7=Complete IndependenceSCALE: Activities may be completed with or without assistive devices. 3-Kuisqzpiof-cozvjxe completes the activity by him/herself with no assistance from a helper. 5-Set-up or Clean-up Assistance-helper sets up or cleans up; patient completes activity. [place] assists only prior to or following the activity. 4-Supervision or Touching Assistance-helper provides verbal cues and/or touching/steadying and/or contact guard assistance as patient completes activity. Assistance may be provided throughout the activity or intermittently. 3-Partial/Moderate Assistance-helper does LESS THAN HALF the effort. [place] lifts, holds or supports trunk or limbs, but provides less than half the effort. 2-Substantial/Maximal Assistance-helper does MORE THAN HALF the effort. [place] lifts or holds trunk or limbs and provides more than half the effort. 4-Inwkrsins-retfyu does ALL the effort. Patient does none of the effort to complete the activity. Or, the assistance of 2 or more helpers is required for the patient to complete the activity. If activity was not attempted, code reason: 7-Patient Refused. 9-Not Applicable-not attempted and the patient did not perform the activity before the current illness, exacerbation or injury. 10-Not Attempted due to Environmental Limitations-(lack of equipment, weather restraints, etc.). 88-Not Attempted due to Medical Conditions or Safety Concerns. Oral Hygiene (QC): 5 (Pt able to squeeze toothpaste onto the brush teeth. Pt required set up to complete the task.) Other Treatment HICKEY elevated pt in bed. Pt completed 3 UE exercises 1 set x 10 reps without resistance to increase overall strength for functional tasks. HICKEY gave pt wet wash clothes to wash her face. Pt patted face but was cued to wash forehead. Pt was given breathing treatment by respiratory therapy while completing therapy. Pt repositioned in bed with assist x2 and pt attempted to assist by pushing with LE's. At the end of session call light/phone in reach. Safety me asures in place. All needs met in room. Nurse present. Education OT Patient Education: Correct positioning, Exercise program, Modified ADL techniques, Progress toward Goal/Update tx plan, Purpose of tx/functional activities, Reviewed precautions, Rehab process, Safety issues, Transfer techniques Teaching Recipient: Patient Teaching Methods: Demonstration Response to Teaching: Verbalize Understanding OT Controlled Area Checker Goals Controlled Area Checker Goals Time Frame: Aug 04, 2019 Eating (QC): 6 Oral Hygiene (QC): 6 Toileting Hygiene (QC): 6 Shower/Bathe Self (QC): 6 Upper Body Dressing (QC): 6 Lower Body Dressing (QC): 6 On/Off Footwear (QC): 6 Additional Goals: 1-Demonstrate ADL Tasks, 2-Verbalize Understanding, 3- ImproveStrength/Yohan 1=Demonstrate adherence to instructed precautions during ADL tasks. 2=Patient will verbalize/demonstrate understanding of assistive devices/modifications for ADL. 3=Patient will improve strength/tolerance for activity to enable patient to perform ADL's. OT Education/Plan Problem List/Assessment Assessment: Decreased Activ Tolerance, Decreased UE Strength, Dependent Transfers, Impaired Bed Mobility, Impaired Cognition, Impaired I ADL's, Impaired Self-Care Skills Discharge Recommendations Plan/Recommendations: Continue POC Therapy Discharge Recommendati: Post Acute OT Treatment Plan/Plan of Care Treatment,Training & Education: Yes Patient would benefit from OT for education, treatment and training to promote independence in ADL's, mobility, safety and/or upper extremity function for ADL's. Plan of Care: ADL Retraining, Concurrent Therapy, Functional Mobility, Group Exercise/Act as Ind, UE Funct Exercise/Act Treatment Duration: Aug 04, 2019 Frequency: 5 times per week Estimated Hrs Per Day: .25 hour per day Agreement: Yes Rehab Potential: Fair Time/GCodes Start Time: 10:20 Stop Time: 10:47 Total Time Billed (hr/min): 27 Billed Treatment Time 1, ADL x1 (15 Min) EX x1 (12 Min) DANIELE STAPLETON Jul 29, 2019 10:41 POS
--- NOTE | 2019-07-29 11:08 | Progress Note - Hospitalist ---
LAITH DE JESUS,MED STUDENT 07/29/19 1108: Subjective HPI/CC On Admission Date Seen by Provider: Jul 29, 2019 Time Seen by Provider: 10:38 Chief complaint: Altered mental status. HPI: This is a 68yoWF clinic Pt of [facility] who is known to me from three weeks ago who has a long-standing learning disability and dementia who is taken care of by her sister and has caregivers at home who has presented to the [facility] wi th altered mental status and hypoxia found to have to pneumonia with significant decompensation and could not be managed at home. She was admitted to ICU 12 with sepsis but began having significant agitation and aggression that did not resolve with Haldol, Ativan and Geodon, she was required to be on Precedex, she was having altered mental status and unresponsiveness this morning after Dr. Redding evaluation and she did respond to Romazicon reverse the benzodiazepines. At this current time, Pt is on BiPAP and echocardiogram is being performed. Subjective/Events-last exam Patient more alert but still confused which is her baseline She reports decreased appetite Working with PT and OT Repeat head CT was negative Repeat CXR showed improvement with no active disease Echo showed normal ejection fraction with grade 1 diastolic dysfunction, mild to moderate tricuspid regurgitation, and elevated pulmonary artery pressure Focused Exam Lactate Level 07/27/19 13:52: Lactic Acid Level 1.40 07/28/19 04:45: Lactic Acid Level 1.22 Objective Exam Vital Signs Vital Signs Date Time Temp Pulse Resp B/P (MAP) Pulse Ox O2 Delivery O2 Flow Rate FiO2 07/29/19 10:33 95 Nasal Cannula 2.00 07/29/19 10:00 111 16 134/81 (98) 07/29/19 04:00 21 07/28/19 20:00 37.2 Capillary Refill : Less Than 3 Seconds General Appearance: No Apparent Distress, Chronically ill Neck: Full Range of Motion, Supple Respiratory: Chest Non Tender, Lungs Clear, Normal Breath Sounds, No Accessory Muscle Use, No Respiratory Distress Cardiovascular: No Murmur, Tachycardia (regular rhythm) Gastrointestinal: Non Tender Extremity: Non Tender, No Pedal Edema Neurologic/Psychiatric: Alert, No Motor/Sensory Deficits, Disoriented Skin: Normal Color, Warm/Dry Lymphatic: No Adenopathy Results/Procedures Lab Laboratory Tests 07/29/19 02:50 Patient resulted labs reviewed. Assessment/Plan Assessment and Plan Assess & Plan/Chief Complaint Assessment: Sepsis Pneumonia Altered mental status Agitation with aggression requiring chemical restraints Hypomagnesemia Dementia History of frequent falls Plan: Ceftriaxone and Azithromycin IV fluids Cardiology and pulmonology following Will move down to 4th floor today Replace magnesium Supportive care Clinical Quality Measures DVT/VTE Risk/Contraindication: Risk Factor Score Per Nursin RFS Level Per Nursing on Admit: 4+=Very High YEN WHYTE DO 07/30/19 0923: Subjective Subjective/Events-last exam Pt doing pretty well Maintained on 2 liters of oxygen now Transferring to floor Very significant dementia and chronic mentally challenged state makes it very complicated survey workers supervisor is consulted Maintained on pneumonia treatment Review of Systems General: Fatigue Pulmonary: Dyspnea Neurological: Confusion Objective Exam General Appearance: WD/WN, Chronically ill, Mild Distress Respiratory: Normal Breath Sounds, Decreased Breath Sounds Cardiovascular: Regular Rate, Rhythm Neurologic/Psychiatric: Alert, No Motor/Sensory Deficits, Disoriented Assessment/Plan Assessment and Plan Assess & Plan/Chief Complaint Transfer to floor Very difficult mental issues Diagnosis/Problems Diagnosis/Problems (1) Sepsis with hypotension Status: Acute (2) Pneumonia (3) Encephalopathy (4) Aggression (5) RLS (restless legs syndrome) (6) Renal failure (7) Neuropathy (8) Diabetes mellitus (9) Risk for falls Supervisory-Addendum Brief Verification & Attestation Participated in pt care: history, MDM, physical Personally performed: exam, history, MDM, supervision of care Care discussed with: Medical Student Procedures: n/a Results interpretation: Verified all documentation Verification and Attestation of Medical Student E/M Service A medical student performed and documented this service in my presence. I reviewed and verified all information documented by the medical student and made modifications to such information, when appropriate. I personally performed the physical exam and medical decision making. Yen Whyte, Jul 30, 2019,09:20 LAITH DE JESUS,MED STUDENT Jul 29, 2019 11:08 YEN WASHINGTON DO Jul 30, 2019 09:23 POS
--- NOTE | 2019-07-29 11:25 | NUR ---
Pastoral care visit.
--- NOTE | 2019-07-29 12:01 | NUR ---
RD ASSESSMENT PMHx: HTN; renal insufficiency; diverticulosis; DM PT INTERACTION: Pt was awake and pleasant during nutrition assessment. Note pt has AMS, per chart review. Pt states current appetite is poor and has been for "a little while." Note pt avg PO intake of 31% x1d, per chart review. Pt states following a regular diet at home, but says she should be watching her sodium intake because of high blood pressure. Pt states no issues chewing/swallowing food at this time. Note pt has poor teeth upon visual exam. Pt states no recent issues with n/v/c/d, and is unsure of last BM. Note no BM has been recorded and pt currently on bowel regimen of miralax HS; senna BID; and colace BID, per chart review. Pt states recent 5-6# wt loss, but could not give timeframe. Note 9# wt loss x7mon, per chart review. Pt states current DM management is pretty good and average blood glucose levels between "100-120." Note unable to determine recent HbA1c, per chart review. ABNORMAL NUTRITION-RELATED LAB VALUES LOW: Mg 1.4; Ca 8.3 HIGH: Cl 112; glu 118 Est. kcal needs: 7056-0998 kcal | 15-20 kcal/kg Est. Pro needs: 73-91 g Pro | 0.8-1.0 g Pro/kg PES STATEMENT: Inadequate oral intake (NI-2.1) related to loss of appetite as evidenced by pt interview | avg PO intake 31% x1d INTERVENTION: Continue with current diet order of Regular diet. May recommend switching to consistent CHO diet, if blood glucose levels remain elevated. Add Glucerna (vary) to meals BID. Provides 220 kcal and 10 g Pro per serving. Will continue to follow an reassess as pt needs and status change. MONITOR/EVALUATE: PO Intake; Plan of Care; Hydration Status; Weight Status; Lab Values Beto Wetzel, MS, RD, LD
--- NOTE | 2019-07-29 13:05 | NUR ---
PT ARRIVED TO ROOM. THIS RN TO RESUME CARE. THIS RN AGREES WITH PREVIOUS RN'S ASSESSMENT
--- NOTE | 2019-07-29 13:17 | NUR ---
Report given to Eli HAYES 4 th floor. Pt delivered to room 416 @ 1300. RN to assume care at this time.Pt belongings sent with Pt
--- NOTE | 2019-07-29 16:38 | NUR ---
Pt was re-admitted after being discharged home on . Arrangements were made with [facility] and pt was to resume independent living with increased care from her DPOA and her family. Home Health Nurse and her DPOA Ms Agnes found pt lying on the floor in a confused state with unsteady gait. According to Luciana pt's DPOA pt had no symptoms the day before as paid her bills and reviewed her medications with her. Prior to discharge on last admission, pt refused admission to Skilled care for short-term rehab and also refused admission to [facility]. Pt's DPOA wants pt to be able to return to her own home but is not adverse to short-term skilled care in [place] or [place] to further evaluate her medication. Pt remains confused today but is much better cognitively. will follow and assist with short-term skilled care if pt agreeable and also working with [facility] to increase in-home care.
[2019-07-29] MEDS: ENOXAPARIN 40 MG/0.4 ML (LOVENOX) SYR SC SCH (18:58)
[2019-07-29] MEDS: HYDROcodone/APAP 10 MG/325 MG (LORTAB) TAB PO PRN (20:47)
[2019-07-29] MEDS: POLYETHYLENE GLYCOL 17 GM (MIRALAX) PACK PO SCH (20:47)
[2019-07-29] MEDS: GABAPENTIN 100 MG (NEURONTIN) CAP PO SCH (20:47)
[2019-07-30] MEDS: RT-ALBUTEROL/IPRATROPIUM 3 ML (DUONEB) VIAL INH SCH ×5 (00:44→19:27)
--- NOTE | 2019-07-30 01:00 | NUR ---
PT CONFUSED AND AGITATED AT THIS TIME. THIS RN IS UNABLE TO REORIENT. PT THINKS SHE IS BEING HELD HOSTAGE. THIS RN OFFERED TO TAKE PT TO TOILET. PT REFUSES. TECH IN ROOM TO ASSIST. PT REFUSES TO TAKE JACKSON LOPEZ. WILL CONTACT WHYTE FOR NEW ORDERS.
--- NOTE | 2019-07-30 01:02 | NUR ---
PATO CONTACTED VIA PHONE. ORDERS FOR PRN ATIVAN AND HALDOL OBTAINED.
[2019-07-30] MEDS: HALOPERIDOL 5 MG/ML (HALDOL) AMP IM PRN ×2 (01:15→16:55)
[2019-07-30] MEDS: LORazepam INJ 2 MG/ML (ATIVAN) VIAL IVP PRN ×3 (01:15→16:55)
--- NOTE | 2019-07-30 01:40 | NUR ---
PT CONTINUES TO BE CONFUSED AND NON COMPLIANT WITH FALL PRECAUTIONS. WILL NOTIFY FARM EQUIPMENT MAINTENANCE SUPERVISOR FOR POTENTIAL SITTER NEEDS. PCT'S AT PT BEDSIDE FOR SAFETY AT THIS TIME.
--- NOTE | 2019-07-30 01:44 | NUR ---
HEADING PINNER NOTIFIED OF SITTER NEED FOR PT. PT CONTINUES TO BE CONFUSED AND NON COMPLIANT WITH FALL PRECAUTIONS. PCT WILL STAY AT BEDSIDE UNTIL SITTER ARRIVES.
[2019-07-30 04:30] VITALS: BP 174/73
[2019-07-30 08:00] VITALS: BP 185/86
[2019-07-30] MEDS: FAMOTIDINE 20 MG (PEPCID) TABLET PO SCH ×2 (09:02→20:06)
[2019-07-30] MEDS: DULoxetine 30 MG (CYMBALTA) CAP PO SCH (09:02)
[2019-07-30] MEDS: CYANOCOBALAMIN 1,000 MCG (VITAMIN B-12) TABLET PO SCH (09:02)
[2019-07-30] MEDS: ETODOLAC 300 MG (LODINE) CAP PO SCH (09:02)
[2019-07-30] MEDS: DICYCLOMINE 10 MG (BENTYL) CAP PO SCH ×4 (09:02→20:05)
[2019-07-30] MEDS: risperiDONE 2 MG (RisperDAL) TAB PO SCH ×2 (09:03→20:06)
[2019-07-30] MEDS: HYDROcodone/APAP 10 MG/325 MG (LORTAB) TAB PO PRN ×3 (09:03→18:02)
[2019-07-30] MEDS: SENNA W/DOCUSATE (SENOKOT S) TABLET PO SCH ×2 (09:03→20:05)
[2019-07-30] MEDS: lisINopril 20 MG (PRINIVIL) TABLET PO SCH (09:03)
[2019-07-30] MEDS: OXYBUTYNIN (DITROPAN) 5 MG TAB PO SCH ×2 (09:03→20:06)
[2019-07-30] MEDS: FOLIC ACID 1 MG TAB PO SCH (09:03)
[2019-07-30] MEDS: FLUTICASONE NASAL SPRAY (FLONASE) 16 GM BTL NS SCH (09:04)
--- NOTE | 2019-07-30 09:12 | Cardiology Progress Note ---
Subjective Date Seen by Provider: Jul 30, 2019 Time Seen by Provider: 09:11 Subjective/Events-last exam Patient is laying down in bed, denied any chest pain. Feeling better Review of Systems General: No Chills, No Night Sweats, No Fatigue, No Malaise, No Appetite, No Other HEENT: No Head Aches, No Visual Changes, No Eye Pain, No Ear Pain, No Dysphasia, No Sinus Congestion, No Post Nasal Drip, No Sore Throat, No Other Pulmonary: No Dyspnea, No Cough, No Pleuritic Chest Pain, No Other Cardiovascular: No: Chest Pain, Palpitations, Orthopnea, Paroxysmal Noc. Dyspnea, Edema, Lt Headedness, Other Focused Exam Lactate Level 07/27/19 13:52: Lactic Acid Level 1.40 07/28/19 04:45: Lactic Acid Level 1.22 Objective-Cardiology Exam Last Set of Vital Signs Vital Signs 07/29/19 07/30/19 07/30/19 04:00 02:32 08:00 Temp 36.1 Pulse 76 Resp 18 B/P (MAP) 185/86 (119) Pulse Ox 97 O2 Delivery Room Air O2 Flow Rate 2.00 FiO2 21 Capillary Refill : Less Than 3 Seconds I&O Intake and Output 07/30/19 00:00 Intake Total 3950 ml Output Total 3750 ml Balance 200 ml Intake Oral 1590 ml IV Total 2360 ml Output Urine Total 3750 ml General: Alert, Oriented X3, Cooperative HEENT: Atraumatic, PERRLA Neck: Supple, No JVD, No Thyromegaly Lungs: Clear to Auscultation, Normal Air Movement Heart: Regular Rate, Normal S1, Normal S2, No Murmurs Abdomen: Normal Bowel Sounds, Soft, No Tenderness, No Hepatosplenomegaly, No Masses Extremities: No Clubbing, No Cyanosis, No Edema, Normal Pulses, No Ten derness/Swelling Skin: No Rashes, No Breakdown, No Significant Lesion Neuro: Normal Gait, Normal Speech, Strength at 5/5 X4 Ext, Normal Tone, Sensation Intact Psych/Mental Status: Mood NL A/P-Cardiology Admission Diagnosis Acute change in mental status Acute respiratory failure Sinus bradycardia Hypotension Assessment/Plan Status post change in mental status, better at this time. Managed by primary care physician Status post respiratory failure with respiratory depression, better at this time. Status post sinus bradycardia probably secondary to hypoxemia. Better that this time. Heart rate is better, continue to monitor Sepsis, received antibiotic, following sepsis protocol, managed by medical team Generalized weakness and loss of energy, questionable secondary to sepsis. Continue to monitor at this point Hypertension, maintained on lisinopril as an outpatient. was hypotensive sec ondary to aggressive sedation, continue to monitor blood pressure at this History of hyperlipidemia, maintained on statin, on hold for now Diabetes mellitus, maintained on metformin. Continue to monitor Patient name was on diazepam and Neurontin as an outpatient Gastroesophageal reflux disease Clinical Quality Measures DVT/VTE Risk/Contraindication: Risk Factor Score Per Nursin RFS Level Per Nursing on Admit: 4+=Very High HUNG REYES MD Jul 30, 2019 09:12 POS
[2019-07-30] MEDS ORDERED: WATER (STERILE) FOR INJECTION 10 ML ONE ×2 (09:20→17:39)
[2019-07-30] MEDS ORDERED: cefTRIAXone 1,000 MG IV (ROCEPHIN) VIAL ONE (09:20)
[2019-07-30] MEDS: cefTRIAXone FOR IV USE 1,000 MG in WATER (STERILE) FOR INJECTION 10 ML IV SCH (09:28)
[2019-07-30] MEDS: AZITHROMYCIN INJECTION 500 MG in NS (IVPB) 250 ML IV SCH (09:33)
--- NOTE | 2019-07-30 09:38 | Physical Therapy Daily Note ---
PT Daily Note-Current Subjective Patient in bed pre tx, agrees reluctantly to ambulate, has no complaints of pain. Patient is confused and has a sitter. Appearance Patient BTB post tx with nurse call, phone, tray, all needs met. Bed alarm on, and sitter in room. Mental Status Patient Orientation: Person, Confused Attachments: Muniz Catheter Transfers SCALE: Activities may be completed with or without assistive devices. 0-Ivxkrkiwgq-gngxeyr completes the activity by him/herself with no assistance from a helper. 5-Set-up or Clean-up Assistance-helper sets up or cleans up; patient completes activity. [place] assists only prior to or following the activity. 4-Supervision or Touching Assistance-helper provides verbal cues and/or touching/steadying and/or contact guard assistance as patient completes activity. Assistance may be provided throughout the activity or intermittently. 3-Partial/Moderate Assistance-helper does LESS THAN HALF the effort. [place] lifts, holds or supports trunk or limbs, but provides less than half the effort. 2-Substantial/Maximal Assistance-helper does MORE THAN HALF the effort. [place] lifts or holds trunk or limbs and provides more than half the effort. 8-Ibdhwfvgs-gyxwjo does ALL the effort. Patient does none of the effort to complete the activity. Or, the assistance of 2 or more helpers is required for the patient to complete the activity. If activity was not attempted, code reason: 7-Patient Refused. 9-Not Applicable-not attempted and the patient did not perform the activity before the current illness, exacerbation or injury. 10-Not Attempted due to Environmental Limitations-(lack of equipment, weather restraints, etc.). 88-Not Attempted due to Medical Conditions or Safety Concerns. Roll Left & Right (QC): 4 Sit to Lying (QC): 4 Lying to Sitting/Side of Bed(Q: 4 Sit to Stand (QC): 4 Chair/Eqw-yg-Upnso Xfer(QC): 4 Weight Bearing Right Lower Extremity: Right Weight Bearing/Tolerated Left Lower Extremity: Left Weight Bearing/Tolerated Gait Training Distance: 30' Walk 10 feet (QC): 4 Gait Assistive Device: FWW CGA, slow, slightly leans to the right side. Treatments bed mobility, transfers, ambulation Assessment Current Status: Fair Progress improved ambulation PT Certified Alcohol And Drug Counselor Goals Certified Alcohol And Drug Counselor Goals PT Certified Alcohol And Drug Counselor Goals Time Frame: Aug 12, 2019 Roll Left & Right (QC): 6 Sit to Lying (QC): 6 Lying-Sitting on Side/Bed(QC): 6 Sit to Stand (QC): 6 Chair/Gze-ah-Ihfov Xfer(QC): 6 Toilet Transfer (QC): 6 Car Transfer (QC): 6 Does the Patient Walk: Yes Walk 10 feet (QC): 6 Walk 50ft with 2 Turns (QC): 6 Walk 150 ft (QC): 6 Walking 10ft on Uneven Surface: 6 1 Step (curb) (QC): 6 4 Steps (QC): 6 12 Steps (QC): 9 Picking up an Object (QC): 6 Does the Pt use WC or Scooter?: No Type: N/A Type: N/A PT Plan Problem List Problem List: Activity Tolerance, Functional Strength, Safety, Balance, Gait, Transfer, Bed Mobility Treatment/Plan Treatment Plan: Continue Plan of Care Treatment Plan: Bed Mobility, Education, Functional Activity Yohan, Functional Strength, Gait, Safety, Therapeutic Exercise, Transfers Treatment Duration: Aug 12, 2019 Frequency: 6 times per week Estimated Hrs Per Day: .25 hour per day Patient and/or Family Agrees t: Yes Safety Risks/Education Patient Education: Gait Training, Transfer Techniques, Correct Positioning, Safety Issues Teaching Recipient: Patient Teaching Methods: Demonstration, Discussion Response to Teaching: Reinforcement Needed Time/GCodes Time In: 927 Time Out: 937 Total Billed Treatment Time: 10 Total Billed Treatment 1 visit GT 10' MARLENI WAITE PT Jul 30, 2019 09:38 POS
[2019-07-30 12:00] VITALS: BP 168/96
--- NOTE | 2019-07-30 12:03 | Progress Note - Hospitalist ---
Subjective HPI/CC On Admission Date Seen by Provider: Jul 30, 2019 Time Seen by Provider: 10:30 Chief complaint: Altered mental status. HPI: This is a 68yoWF clinic Pt of [facility] who is known to me from three weeks ago who has a long-standing learning disability and dementia who is taken care of by her sister and has caregivers at home who has presented to the [place] ER with altered mental status and hypoxia found to have to pneumonia with significant decompensation and could not be managed at home. She was admitted to ICU 12 with sepsis but began having significant agitation and aggression that did not resolve with Haldol, Ativan and Geodon, she was required to be on Precedex, she was having altered mental status and unresponsiveness this morning after Dr. Redding evaluation and she did respond to Romazicon reverse the benzodiazepines. At this current time, Pt is on BiPAP and echocardiogram is being performed. Subjective/Events-last exam Muniz will be discontinued Overall medically she is doing well She still becomes very confused after 5 PM Haldol and Ativan ordered Chronic mental illness with cognitive challenges lifelong with dementia makes it very difficult to manage this patient Delirium seems to be clearing On antibiotics for pneumonia Review of Systems Neurological: Confusion Focused Exam Lactate Level Objective Exam Vital Signs Vital Signs Date Time Temp Pulse Resp B/P (MAP) Pulse Ox O2 Delivery O2 Flow Rate FiO2 07/31/19 12:49 35.8 07/31/19 10:43 90 Room Air 07/31/19 08:00 93 18 151/85 (107) 07/30/19 02:32 2.00 07/29/19 04:00 21 Capillary Refill : Less Than 3 Seconds General Appearance: No Apparent Distress, WD/WN Respiratory: Chest Non Tender, Lungs Clear, Normal Breath Sounds, No Accessory Muscle Use, No Respiratory Distress Cardiovascular: Regular Rate, Rhythm, No Edema, No Gallop, No JVD, No Murmur, N ormal Peripheral Pulses Neurologic/Psychiatric: Alert, Disoriented Results/Procedures Lab Patient resulted labs reviewed. Assessment/Plan Assessment and Plan Assess & Plan/Chief Complaint Assessment: PNA Severe sepsis Severe aggression requiring chemical restraints MR Dementia HTN CRI DM Plan: ABx Psych meds Diagnosis/Problems Diagnosis/Problems (1) Sepsis with hypotension Status: Acute (2) Pneumonia (3) Encephalopathy (4) Aggression (5) RLS (restless legs syndrome) (6) Renal failure (7) Neuropathy (8) Diabetes mellitus (9) Risk for falls Clinical Quality Measures DVT/VTE Risk/Contraindication: Risk Factor Score Per Nursin RFS Level Per Nursing on Admit: 4+=Very High IJEMOA WHYTE DO Jul 30, 2019 12:03 POS
--- NOTE | 2019-07-30 14:23 | Pulmonary Progress Note ---
Subjective Time Seen by a Provider: 14:23 Sepsis Event Evaluation Height, Weight, BMI Height: 5'1.00" Weight: 210lbs. oz. 95.293468mt; 31.16 BMI Method:Stated Focused Exam Lactate Level 07/28/19 04:45: Lactic Acid Level 1.22 Exam Exam Vital Signs Date Time Temp Pulse Resp B/P (MAP) Pulse Ox O2 Delivery O2 Flow Rate FiO2 07/30/19 12:00 36.4 70 18 168/96 (120) 96 Room Air 07/30/19 10:06 95 Room Air 07/30/19 08:00 36.1 76 18 185/86 (119) 97 Room Air 07/30/19 04:30 36.0 70 18 174/73 (106) 95 Room Air 07/30/19 04:00 Room Air 07/30/19 02:32 Nasal Cannula 2.00 07/30/19 00:10 96 Room Air 07/29/19 23:30 37.5 107 18 134/82 (99) 91 Room Air 07/29/19 20:56 37.2 86 22 166/77 (106) 96 Room Air 07/29/19 20:45 96 Room Air 07/29/19 20:45 96 Room Air 07/29/19 16:22 36.9 104 22 149/70 (96) 92 Room Air 07/29/19 16:00 93 Room Air 07/29/19 15:12 95 Nasal Cannula 2.00 I & O 07/30/19 07:00 Intake Total 4550 ml Output Total 3950 ml Balance 600 ml Height & Weight Height: 5'1.00" Weight: 210lbs. oz. 95.398241pm; 31.16 BMI Method:Stated General Appearance: No Apparent Distress, WD/WN, Chronically ill HEENT: PERRL/EOMI, Moist Mucous Membranes Neck: Full Range of Motion, Supple Respiratory: Normal Breath Sounds, Decreased Breath Sounds Cardiovascular: Regular Rate, Rhythm Capillary Refill: Less Than 3 Seconds Extremity: Non Tender, No Pedal Edema Neurologic/Psychiatric: Alert, No Motor/Sensory Deficits, Disoriented Skin: Normal Color, Warm/Dry Lymphatic: No Adenopathy Results Lab Laboratory Tests 07/29/19 02:50 Assessment/Plan Assessment/Plan Acute respiratory failure -- secondary to oversedation much improved -Monitor close - PNA -Rocephin and azithromycin Frequent falls. -Ct head negative x2 JASMIN KAISER DO Jul 30, 2019 14:23 POS
[2019-07-30 15:37] VITALS: BP 181/84
[2019-07-30] MEDS: ZIPRASIDONE 20 MG INJ (GEODON) VIAL IM PRN (17:47)
[2019-07-30] MEDS: ENOXAPARIN 40 MG/0.4 ML (LOVENOX) SYR SC SCH (17:48)
--- NOTE | 2019-07-30 19:30 | NUR ---
PT CURRENTLY CUSSING AND YELLING AT STAFF STATING, "I'M NOT GOING TO STAY HERE." STAFF ATTEMPTS TO REDIRECT AND REORIENT PT WITHOUT SUCCESS. STAFF OFFERS TO TAKE PT ON WALK DOWN PARDO, BUT PT REFUSES TO USE WALKER OR ACCEPT ANY ASSISTANCE FROM STAFF WITHOUT BECOMING AGGRESSIVE.
[2019-07-30] MEDS ORDERED: QUEtiapine 100 MG (SEROquel) TAB IMMEDIATE RELEASE PO STA (19:46)
--- NOTE | 2019-07-30 19:48 | NUR ---
NOTIFIED WHYTE OF PT'S INCREASE IN AGITATION AND AGGRESSION. ORDER FOR SEROQUEL X1 NOW OBTAINED. ORDER TO INCREASE HALDOL PRN TO 3MG OBTAINED.
[2019-07-30] MEDS ORDERED: QUEtiapine 100 MG (SEROquel) TAB IMMEDIATE RELEASE ONE (19:56)
[2019-07-30] MEDS: GABAPENTIN 100 MG (NEURONTIN) CAP PO SCH (20:05)
[2019-07-30] MEDS: POLYETHYLENE GLYCOL 17 GM (MIRALAX) PACK PO SCH (20:05)
[2019-07-31] MEDS: RT-ALBUTEROL/IPRATROPIUM 3 ML (DUONEB) VIAL INH SCH ×6 (00:19→19:38)
[2019-07-31] MEDS: LACTATED RINGERS 1,000 ML IV SCH (01:27)
[2019-07-31 04:00] VITALS: BP 135/76
[2019-07-31 05:06] VITALS: BP 135/78
[2019-07-31 08:00] VITALS: BP 151/85
--- NOTE | 2019-07-31 08:52 | Cardiology Progress Note ---
Subjective Date Seen by Provider: Jul 31, 2019 Time Seen by Provider: 08:51 Subjective/Events-last exam Patient is sitting in a chair, confused, denied any pain Review of Systems General: No Chills, No Night Sweats, No Fatigue, No Malaise, No Appetite, No Other HEENT: No Head Aches, No Visual Changes, No Eye Pain, No Ear Pain, No Dysphasia, No Sinus Congestion, No Post Nasal Drip, No Sore Throat, No Other Pulmonary: No Dyspnea, No Cough, No Pleuritic Chest Pain, No Other Cardiovascular: No: Chest Pain, Palpitations, Orthopnea, Paroxysmal Noc. Dyspnea, Edema, Lt Headedness, Other Objective-Cardiology Exam Last Set of Vital Signs Vital Signs 07/29/19 07/30/19 07/31/19 04:00 02:32 05:06 Temp 36.8 Pulse 68 Resp 18 B/P (MAP) 135/78 (97) Pulse Ox 93 O2 Delivery Room Air O2 Flow Rate 2.00 FiO2 21 Capillary Refill : Less Than 3 Seconds I&O Intake and Output 07/31/19 00:00 Intake Total 1505 ml Output Total 1550 ml Balance -45 ml Intake Oral 1505 ml Output Urine Total 1550 ml # Voids 5 # Bowel Movements 4 General: Alert, Cooperative, Other (Confused, disoriented) HEENT: Atraumatic, PERRLA Neck: Supple, No JVD, No Thyromegaly Lungs: Clear to Auscultation, Normal Air Movement Heart: Regular Rate, Normal S1, Normal S2, No Murmurs Abdomen: Normal Bowel Sounds, Soft, No Tenderness, No Hepatosplenomegaly, No Masses Extremities: No Clubbing, No Cyanosis, No Edema, Normal Pulses, No Tenderness/Swelling Skin: No Rashes, No Breakdown, No Significant Lesion Neuro: Normal Gait, Normal Speech, Strength at 5/5 X4 Ext, Normal Tone, Sensation Intact Psych/Mental Status: Mood NL A/P-Cardiology Admission Diagnosis Acute change in mental status Acute respiratory failure Sinus bradycardia Hypotension Assessment/Plan Status post change in mental status, at this time she is confused and disorie nted 3, managed by primary care team Status post respiratory failure with respiratory depression, better at this time. Status post sinus bradycardia probably secondary to hypoxemia. Better that this time. Heart rate is better, continue to monitor Sepsis, received antibiotic, following sepsis protocol, managed by medical team Generalized weakness and loss of energy, questionable secondary to sepsis. Continue to monitor at this point Hypertension, maintained on lisinopril as an outpatient. was hypotensive secondary to aggressive sedation, continue to monitor blood pressure at this History of hyperlipidemia, maintained on statin, on hold for now Diabetes mellitus, maintained on metformin. Continue to monitor Patient name was on diazepam and Neurontin as an outpatient Gastroesophageal reflux disease Clinical Quality Measures DVT/VTE Risk/Contraindication: Risk Factor Score Per Nursin RFS Level Per Nursing on Admit: 4+=Very High HUNG REYES MD Jul 31, 2019 08:52 POS
[2019-07-31] MEDS ORDERED: cefTRIAXone 1,000 MG IV (ROCEPHIN) VIAL ONE (09:03)
[2019-07-31] MEDS ORDERED: WATER (STERILE) FOR INJECTION 10 ML ONE (09:03)
[2019-07-31] MEDS: CYANOCOBALAMIN 1,000 MCG (VITAMIN B-12) TABLET PO SCH (09:08)
[2019-07-31] MEDS: OXYBUTYNIN (DITROPAN) 5 MG TAB PO SCH ×2 (09:08→19:52)
[2019-07-31] MEDS: FOLIC ACID 1 MG TAB PO SCH (09:08)
[2019-07-31] MEDS: risperiDONE 2 MG (RisperDAL) TAB PO SCH ×2 (09:08→19:51)
[2019-07-31] MEDS: SENNA W/DOCUSATE (SENOKOT S) TABLET PO SCH ×2 (09:08→19:49)
[2019-07-31] MEDS: DULoxetine 30 MG (CYMBALTA) CAP PO SCH (09:08)
[2019-07-31] MEDS: lisINopril 20 MG (PRINIVIL) TABLET PO SCH (09:08)
[2019-07-31] MEDS: FAMOTIDINE 20 MG (PEPCID) TABLET PO SCH ×2 (09:08→19:47)
[2019-07-31] MEDS: ETODOLAC 300 MG (LODINE) CAP PO SCH (09:08)
[2019-07-31] MEDS: HYDROcodone/APAP 10 MG/325 MG (LORTAB) TAB PO PRN ×4 (09:09→21:40)
[2019-07-31] MEDS: DICYCLOMINE 10 MG (BENTYL) CAP PO SCH ×4 (09:09→21:05)
[2019-07-31] MEDS: FLUTICASONE NASAL SPRAY (FLONASE) 16 GM BTL NS SCH (09:10)
[2019-07-31] MEDS: AZITHROMYCIN INJECTION 500 MG in NS (IVPB) 250 ML IV SCH (09:10)
[2019-07-31] MEDS: cefTRIAXone FOR IV USE 1,000 MG in WATER (STERILE) FOR INJECTION 10 ML IV SCH (09:10)
--- NOTE | 2019-07-31 12:09 | Progress Note - Hospitalist ---
Subjective HPI/CC On Admission Date Seen by Provider: Jul 31, 2019 Time Seen by Provider: 10:30 Chief complaint: Altered mental status. HPI: This is a 68yoWF clinic Pt of [facility] who is known to me from three weeks ago who has a long-standing learning disability and dementia who is taken care of by her sister and has caregivers at home who has presented to the [place] ER with altered mental status and hypoxia found to have to pneumonia with significant decompensation and could not be managed at home. She was admitted to ICU 12 with sepsis but began having significant agitation and aggression that did not resolve with Haldol, Ativan and Geodon, she was required to be on Precedex, she was having altered mental status and unresponsiveness this morning after Dr. Redding evaluation and she did respond to Romazicon reverse the benzodiazepines. At this current time, Pt is on BiPAP and echocardiogram is being performed. Subjective/Events-last exam Seroquel was given yesterday evening and that seemed to really work for her We will discontinue the IV since it was lost anyway Omnicef started at 300 mg twice daily Patient appears to be doing well Review of Systems General: Fatigue Neurological: Confusion Objective Exam Vital Signs Vital Signs Date Time Temp Pulse Resp B/P (MAP) Pulse Ox O2 Delivery O2 Flow Rate FiO2 07/31/19 12:49 35.8 07/31/19 10:43 90 Room Air 07/31/19 08:00 93 18 151/85 (107) 07/30/19 02:32 2.00 07/29/19 04:00 21 Capillary Refill : Less Than 3 Seconds General Appearance: No Apparent Distress, WD/WN, Chronically ill Respiratory: Chest Non Tender, Lungs Clear, Normal Breath Sounds, No Accessory Muscle Use, No Respiratory Distress Cardiovascular: Regular Rate, Rhythm, No Edema, No Gallop, No JVD, No Murmur, Normal Peripheral Pulses Neurologic/Psychiatric: Alert, Disoriented Results/Procedures Lab Patient resulted labs reviewed. Assessment/Plan Assessment and Plan Assess & Plan/Chief Complaint Assessment: Severe sepsis PNA Mental issues Aggression Fall risk CRI DM Plan: PO abx Fall risk Seroquel Diagnosis/Problems Diagnosis/Problems (1) Sepsis with hypotension Status: Acute (2) Pneumonia (3) Encephalopathy (4) Aggression (5) RLS (restless legs syndrome) (6) Renal failure (7) Neuropathy (8) Diabetes mellitus (9) Risk for falls Clinical Quality Measures DVT/VTE Risk/Contraindication: Risk Factor Score Per Nursin RFS Level Per Nursing on Admit: 4+=Very High IJEOMA WHYTE DO Jul 31, 2019 12:09 POS
[2019-07-31] MEDS ORDERED: WATER (STERILE) FOR INJECTION 20 ML ONE (12:40)
[2019-07-31] MEDS: ZIPRASIDONE 20 MG INJ (GEODON) VIAL IM PRN (12:49)
[2019-07-31] MEDS ORDERED: QUEtiapine 100 MG (SEROquel) TAB IMMEDIATE RELEASE PO PRN (13:15)
[2019-07-31 16:00] VITALS: BP 157/74
[2019-07-31] MEDS: ENOXAPARIN 40 MG/0.4 ML (LOVENOX) SYR SC SCH (17:55)
[2019-07-31] MEDS: GABAPENTIN 100 MG (NEURONTIN) CAP PO SCH (19:49)
[2019-07-31] MEDS: CEFDINIR 300 MG (OMNICEF) CAP PO SCH (19:50)
[2019-07-31] MEDS: MELATONIN 3 MG TABLET PO PRN (19:50)
[2019-07-31] MEDS: QUEtiapine 100 MG (SEROquel) TAB IMMEDIATE RELEASE PO SCH (19:51)
[2019-07-31] MEDS: HALOPERIDOL 5 MG/ML (HALDOL) AMP IM PRN (19:52)
[2019-07-31] MEDS: POLYETHYLENE GLYCOL 17 GM (MIRALAX) PACK PO SCH (20:00)
[2019-07-31] MEDS: LORazepam INJ 2 MG/ML (ATIVAN) VIAL IM PRN (21:30)
[2019-07-31 23:43] VITALS: BP 143/68
[2019-08-01] MEDS: RT-ALBUTEROL/IPRATROPIUM 3 ML (DUONEB) VIAL INH SCH ×6 (00:45→23:16)
[2019-08-01 05:44] LABS: BASOPHILS % (AUTO) 0 % (0-10); EOSINOPHILS # (AUTO) 0.4 10^3/uL (0.0-0.3); EOSINOPHILS % (AUTO) 8 % (0-10); HEMATOCRIT 38 % (35-52); LYMPHOCYTES # (AUTO) 1.2 X 10^3 (1.0-4.0); LYMPHOCYTES % (AUTO) 27 % (12-44); MEAN CORPUSCULAR HEMOGLOBIN 29 PG (25-34); MEAN CORPUSCULAR HGB CONC 32 G/DL (32-36); MEAN CORPUSCULAR VOLUME 92 FL (80-99); MEAN PLATELET VOLUME 11.8 FL (7.4-10.4); MONOCYTES # (AUTO) 0.5 X 10^3 (0.0-1.0); MONOCYTES % (AUTO) 10 % (0-12); NEUTROPHILS # (AUTO) 2.5 X 10^3 (1.8-7.8); NEUTROPHILS % (AUTO) 54 % (42-75); PLATELET COUNT 184 10^3/uL (130-400); RED CELL DISTRIBUTION WIDTH 13.7 % (10.0-14.5); WHITE BLOOD COUNT 4.6 10^3/uL (4.3-11.0)
[2019-08-01 06:04] LABS: ALANINE AMINOTRANSFERASE 11 U/L (0-55); ALBUMIN 3.9 GM/DL (3.2-4.5); ALKALINE PHOSPHATASE 80 U/L (40-136); BILIRUBIN,TOTAL 0.5 MG/DL (0.1-1.0); BUN/CREATININE RATIO 6; CALCIUM 10.1 MG/DL (8.5-10.1); CARBON DIOXIDE 23 MMOL/L (21-32); CHLORIDE 107 MMOL/L (98-107); GFR ESTIMATED > 60; GLUCOSE 136 MG/DL (70-105); POTASSIUM 3.8 MMOL/L (3.6-5.0); SODIUM 143 MMOL/L (135-145); TOTAL PROTEIN 6.6 GM/DL (6.4-8.2)
[2019-08-01 08:00] VITALS: BP 169/94
--- NOTE | 2019-08-01 08:18 | Cardiology Progress Note ---
Subjective Date Seen by Provider: Aug 01, 2019 Time Seen by Provider: 08:17 Subjective/Events-last exam Patient is in bed, sleeping, no change reported Review of Systems General: Other (Unable to report ROS) Objective-Cardiology Exam Last Set of Vital Signs Vital Signs 07/29/19 07/31/19 07/31/19 08/01/19 04:00 20:21 23:43 00:45 Temp 36.7 Pulse 78 Resp 18 B/P (MAP) 143/68 (93) Pulse Ox 93 O2 Delivery Room Air O2 Flow Rate 2.00 FiO2 21 Capillary Refill : Less Than 3 SecondsLess Than 3 Seconds I&O Intake and Output 08/01/19 00:00 Intake Total 2490 ml Balance 2490 ml Intake Oral 1230 ml IV Total 1260 ml # Voids 7 # Bowel Movements 2 General: Other (Confused, disoriented, sleeping today) HEENT: Atraumatic, PERRLA Neck: Supple, No JVD, No Thyromegaly Lungs: Clear to Auscultation, Normal Air Movement Heart: Regular Rate, Normal S1, Normal S2, No Murmurs Abdomen: Normal Bowel Sounds, Soft, No Tenderness, No Hepatosplenomegaly, No Masses Extremities: No Clubbing, No Cyanosis, No Edema, Normal Pulses, No Tenderness/Swelling Skin: No Rashes, No Breakdown, No Significant Lesion Neuro: Normal Gait, Normal Speech, Strength at 5/5 X4 Ext, Normal Tone, Sensation Intact Psych/Mental Status: Mood NL Results Lab Laboratory Tests 08/01/19 05:00 A/P-Cardiology Admission Diagnosis Acute change in mental status Acute respiratory failure Sinus bradycardia Hypotension Assessment/Plan Status post change in mental status, at this time she is confused and disoriented 3, managed by primary care team Status post respiratory failure with respiratory depression, better at this time. Status post sinus bradycardia probably secondary to hypoxemia. Better that this time. Heart rate is better, continue to monitor Sepsis, received antibiotic, following sepsis protocol, managed by medical team Generalized weakness and loss of energy, questionable secondary to sepsis. Continue to monitor at this point Hypertension, maintained on lisinopril as an outpatient. was hypotensive secondary to aggressive sedation, continue to monitor blood pressure at this History of hyperlipidemia, maintained on statin, on hold for now Diabetes mellitus, maintained on metformin. Continue to monitor Patient name was on diazepam and Neurontin as an outpatient Gastroesophageal reflux disease Clinical Quality Measures DVT/VTE Risk/Contraindication: Risk Factor Score Per Nursin RFS Level Per Nursing on Admit: 4+=Very High HUNG REYES MD Aug 01, 2019 08:18 POS
[2019-08-01] MEDS: OXYBUTYNIN (DITROPAN) 5 MG TAB PO SCH ×2 (10:08→20:59)
[2019-08-01] MEDS: risperiDONE 2 MG (RisperDAL) TAB PO SCH ×2 (10:08→20:59)
[2019-08-01] MEDS: SENNA W/DOCUSATE (SENOKOT S) TABLET PO SCH ×2 (10:08→20:59)
[2019-08-01] MEDS: CEFDINIR 300 MG (OMNICEF) CAP PO SCH ×2 (10:09→20:59)
[2019-08-01] MEDS: DULoxetine 30 MG (CYMBALTA) CAP PO SCH (10:09)
[2019-08-01] MEDS: FAMOTIDINE 20 MG (PEPCID) TABLET PO SCH ×2 (10:09→20:59)
[2019-08-01] MEDS: FOLIC ACID 1 MG TAB PO SCH (10:09)
[2019-08-01] MEDS: ETODOLAC 300 MG (LODINE) CAP PO SCH (10:09)
[2019-08-01] MEDS: lisINopril 20 MG (PRINIVIL) TABLET PO SCH (10:09)
[2019-08-01] MEDS: CYANOCOBALAMIN 1,000 MCG (VITAMIN B-12) TABLET PO SCH (10:09)
[2019-08-01] MEDS: DICYCLOMINE 10 MG (BENTYL) CAP PO SCH (10:10)
[2019-08-01] MEDS: FLUTICASONE NASAL SPRAY (FLONASE) 16 GM BTL NS SCH (10:17)
--- NOTE | 2019-08-01 10:18 | Physician Query Clarification ---
PQ-Further Specificity Admission/Discharge Admission Date: Jul 27, 2019 at 16:50 Discharge Date: The medical record reflects the following clinical scenario: History/Risk Factors: Sepsis Encephalopathy Clinical Findings: Acute respiratory failure and bradycardia secondary to oversedation-per Dr. Redding's consult. Treatment:Romazicon to reverse the benzodiazepines. Question: Can you further specify Oversedation per the clinical indicators above? Please document a response in the Progress Notes or Discharge Summary. 1. Oversedation from adverse effect of medications properly administered. 2. Oversedation from accidental overdosing of sedative medication. 3. Other, with explanation of the clinical findings. 4. Clinically undetermined, no explanation for the clinical findings. PHYSICIAN RESPONSE Can you specify per above: 1 Please remember a lack of response to the above will prompt a phone page by CDI/Coding staff. In responding to this query, please exercise your independent professional judgment. The purpose of this communication is to more accurately reflect the complexity of your patients condition. The fact that a question is asked does not imply that any particular answer is desired or expected. Thank you for your timely response to this clarification. Requestors name: Alfreda Santacruz [facility] Phone # [phone] THIS PHYSICIAN QUERY FORM IS A PERMANENT PART OF THE MEDICAL RECORD ALFREDA SANTACRUZ Aug 01, 2019 10:17 IJEOMA WASHINGTON DO Aug 01, 2019 21:01 POS
--- NOTE | 2019-08-01 11:56 | Physical Therapy Daily Note ---
PT Daily Note-Current Subjective Patient agrees to PT. Very confused and requires verbal and tactile redirection to remain on task and complete all tasks. Mental Status Patient Orientation: Confused Transfers SCALE: Activities may be completed with or without assistive devices. 0-Eeksybikco-mozyyil completes the activity by him/herself with no assistance from a helper. 5-Set-up or Clean-up Assistance-helper sets up or cleans up; patient completes activity. [place] assists only prior to or following the activity. 4-Supervision or Touching Assistance-helper provides verbal cues and/or touching/steadying and/or contact guard assistance as patient completes activity. Assistance may be provided throughout the activity or intermittently. 3-Partial/Moderate Assistance-helper does LESS THAN HALF the effort. [place] lifts, holds or supports trunk or limbs, but provides less than half the effort. 2-Substantial/Maximal Assistance-helper does MORE THAN HALF the effort. [place] lifts or holds trunk or limbs and provides more than half the effort. 6-Fnzohzlrc-xkkdmq does ALL the effort. Patient does none of the effort to complete the activity. Or, the assistance of 2 or more helpers is required for the patient to complete the activity. If activity was not attempted, code reason: 7-Patient Refused. 9-Not Applicable-not attempted and the patient did not perform the activity before the current illness, exacerbation or injury. 10-Not Attempted due to Environmental Limitations-(lack of equipment, weather restraints, etc.). 88-Not Attempted due to Medical Conditions or Safety Concerns. Roll Left & Right (QC): 5 Sit to Lying (QC): 5 Lying to Sitting/Side of Bed(Q: 5 Sit to Stand (QC): 4 Chair/Nip-kx-Jdxua Xfer(QC): 4 Weight Bearing Right Lower Extremity: Right Weight Bearing/Tolerated Left Lower Extremity: Left Weight Bearing/Tolerated Gait Training Does the Patient Walk?: Yes Distance: 275' Walk 10 feet (QC): 3 Walk 50 ft with 2 Turns(QC): 3 Walk 150 ft (QC): 3 Gait Persons Needed: 1 Gait Assistive Device: FWW PT to advance FWW and for CGA for safety Assessment Patient tolerated treatment well and is up in recliner with chair placed and activated. Patient continues to have difficulty remaining on tasks due to confusion. PT Logging Supervisor Goals Usp Goals PT Usp Goals Time Frame: Aug 12, 2019 Roll Left & Right (QC): 6 Sit to Lying (QC): 6 Lying-Sitting on Side/Bed(QC): 6 Sit to Stand (QC): 6 Chair/Jbw-lc-Kzhzm Xfer(QC): 6 Toilet Transfer (QC): 6 Car Transfer (QC): 6 Does the Patient Walk: Yes Walk 10 feet (QC): 6 Walk 50ft with 2 Turns (QC): 6 Walk 150 ft (QC): 6 Walking 10ft on Uneven Surface: 6 1 Step (curb) (QC): 6 4 Steps (QC): 6 12 Steps (QC): 9 Picking up an Object (QC): 6 Does the Pt use WC or Scooter?: No Type: N/A Type: N/A PT Plan Treatment/Plan Treatment Plan: Continue Plan of Care Treatment Plan: Bed Mobility, Education, Functional Activity Yohan, Functional Strength, Gait, Safety, Therapeutic Exercise, Transfers Treatment Duration: Aug 12, 2019 Frequency: 6 times per week Estimated Hrs Per Day: .25 hour per day Patient and/or Family Agrees t: Yes Time/GCodes Time In: 1120 Time Out: 1131 Total Billed Treatment Time: 11 Total Billed Treatment 1 visit GT 11 min JENIFER MCCAIN PT Aug 01, 2019 11:56 POS
[2019-08-01] MEDS: LORazepam INJ 2 MG/ML (ATIVAN) VIAL IM PRN (13:56)
--- NOTE | 2019-08-01 14:10 | NUR ---
Pastoral care visit, pt requested prayer, had prayer with py.
--- NOTE | 2019-08-01 15:10 | Occupational Ther Daily Note ---
OT Current Status-Daily Note Subjective Pt alert, lying in bed. Pt agrees to therapy. Pt is confused only knowing person. Pt stated that her dog was asleep and she was going to have to give him away, dog is a toy. Pt continues to whisper so that dog will not wake up and hear her. Pt also states that she is escaping tonight, saying that she can just walk out of here. Mental Status/Objective Patient Orientation: Person, Place, Time, Situation ADL-Treatment Supine <--> EOB, mod I. Bed mobility, mod I. Pt ambulated to bathroom using FWW. Transferred to toilet, mod I and completed toileting, mod I. Stood at sink to wash hands, mod I. After therapy, pt lying in bed with safety measures in place. Call light/phone in reach. All needs met in room. Therapy Code Descriptions/Definitions Functional [place] Measure: 0=Not Assessed/NA 4=Minimal Assistance 1=Total Assistance 5=Supervision or Setup 2=Maximal Assistance 6=Modified [place] 3=Moderate Assistance 7=Complete IndependenceSCALE: Activities may be completed with or without assistive devices. 4-Pwaoycovei-msqbqcs completes the activity by him/herself with no assistance from a helper. 5-Set-up or Clean-up Assistance-helper sets up or cleans up; patient completes activity. Eleanor assists only prior to or following the activity. 4-Supervision or Touching Assistance-helper provides verbal cues and/or touching/steadying and/or contact guard assistance as patient completes activity. Assistance may be provided throughout the activity or intermittently. 3-Partial/Moderate Assistance-helper does LESS THAN HALF the effort. Eleanor lifts, holds or supports trunk or limbs, but provides less than half the effort. 2-Substantial/Maximal Assistance-helper does MORE THAN HALF the effort. Eleanor lifts or holds trunk or limbs and provides more than half the effort. 1-Jexqippfh-hhlfbi does ALL the effort. Patient does none of the effort to complete the activity. Or, the assistance of 2 or more helpers is required for the patient to complete the activity. If activity was not attempted, code reason: 7-Patient Refused. 9-Not Applicable-not attempted and the patient did not perform the activity before the current illness, exacerbation or injury. 10-Not Attempted due to Environmental Limitations-(lack of equipment, weather restraints, etc.). 88-Not Attempted due to Medical Conditions or Safety Concerns. Toileting Hygiene (QC): 6 Toilet Transfer (QC): 6 OT Manager [employer] Goals Half-Way Goals Time Frame: Aug 04, 2019 Eating (QC): 6 Oral Hygiene (QC): 6 Toileting Hygiene (QC): 6 Shower/Bathe Self (QC): 6 Upper Body Dressing (QC): 6 Lower Body Dressing (QC): 6 On/Off Footwear (QC): 6 Additional Goals: 1-Demonstrate ADL Tasks, 2-Verbalize Understanding, 3- ImproveStrength/Yohan 1=Demonstrate adherence to instructed precautions during ADL tasks. 2=Patient will verbalize/demonstrate understanding of assistive devices/modifications for ADL. 3=Patient will improve strength/tolerance for activity to enable patient to perform ADL's. OT Education/Plan Problem List/Assessment Assessment: Decreased Safety Aware, Impaired Cognition Discharge Recommendations Plan/Recommendations: Continue POC Treatment Plan/Plan of Care Patient would benefit from OT for education, treatment and training to promote independence in ADL's, mobility, safety and/or upper extremity function for ADL's. Plan of Care: ADL Retraining, Concurrent Therapy, Functional Mobility, Group Exercise/Act as Ind, UE Funct Exercise/Act Treatment Duration: Aug 04, 2019 Frequency: 5 times per week Estimated Hrs Per Day: .25 hour per day Agreement: Yes Rehab Potential: Fair Time/GCodes Start Time: 14:40 Stop Time: 15:00 Total Time Billed (hr/min): 20 Billed Treatment Time 1 visit-FA 1 (20 min) DANIELE STAPLETON Aug 01, 2019 15:10 POS
[2019-08-01 15:13] VITALS: BP 152/88
--- NOTE | 2019-08-01 17:04 | NUR ---
Pt remains intermittently confused and disorganized in her thinking. She wants to be discharged home. Her DPOA wants her to be home too but currently thinks she is unable manage till she regains her strength and would her medications re-evaluated. DPOA would like her to be admitted short-term to [facility] [place]. but unsure pt will agree.
[2019-08-01] MEDS ORDERED: WATER (STERILE) FOR INJECTION 10 ML ONE (19:08)
[2019-08-01] MEDS: ZIPRASIDONE 20 MG INJ (GEODON) VIAL IM PRN (19:18)
--- NOTE | 2019-08-01 20:37 | Progress Note ---
Subjective Subjective/Events-last exam Patient stable this AM. Denies any complaints. Tolerating PO diet. ON: Nursing states that she had some agitation. Review of Systems Pulmonary: No Dyspnea, No Cough Cardiovascular: No: Chest Pain, Palpitations Gastrointestinal: No: Nausea, Vomiting, Abdominal Pain, Diarrhea, Constipation Neurological: Weakness Objective Exam Last Set of Vital Signs Vital Signs Date Time Temp Pulse Resp B/P (MAP) Pulse Ox O2 Delivery O2 Flow Rate FiO2 08/01/19 15:13 36.8 72 20 152/88 (109) 96 Room Air 07/31/19 20:21 2.00 07/29/19 04:00 21 Capillary Refill : Less Than 3 SecondsLess Than 3 Seconds I&O Intake and Output 08/01/19 00:00 Intake Total 2490 ml Balance 2490 ml Intake Oral 1230 ml IV Total 1260 ml # Voids 7 # Bowel Movements 2 General: Alert, No Acute Distress Lungs: Clear to Auscultation, Normal Air Movement Heart: Regular Rate, No Murmurs Abdomen: Normal Bowel Sounds, Soft, No Tenderness, No Masses Extremities: No Edema, No Tenderness/Swelling Skin: No Rashes, No Breakdown Neuro: Normal Speech, Sensation Intact, Cranial Nerves 3-12 NL Results/Procedures Lab Laboratory Tests 08/01/19 05:00: White Blood Count 4.6, Red Blood Count 4.10L, Hemoglobin 12.0#, Hematocrit 38, Mean Corpuscular Volume 92, Mean Corpuscular Hemoglobin 29, Mean Corpuscular He moglobin Concent 32, Red Cell Distribution Width 13.7, Platelet Count 184, Mean Platelet Volume 11.8H, Neutrophils (%) (Auto) 54, Lymphocytes (%) (Auto) 27, Monocytes (%) (Auto) 10, Eosinophils (%) (Auto) 8, Basophils (%) (Auto) 0, Mary trophils # (Auto) 2.5, Lymphocytes # (Auto) 1.2, Monocytes # (Auto) 0.5, Eosinophils # (Auto) 0.4H, Basophils # (Auto) 0.0, Sodium Level 143, Potassium Level 3.8, Chloride Level 107, Carbon Dioxide Level 23, Anion Gap 13, Blood Urea Nitrogen 5L, Creatinine 0.80, Estimat Glomerular Filtration Rate > 60, BUN/Creatinine Ratio 6, Glucose Level 136H, Calcium Level 10.1, Corrected Calcium 10.2H, Total Bilirubin 0.5, Aspartate Amino Transf (AST/SGOT) 11, Alanine Aminotransferase (ALT/SGPT) 11, Alkaline Phosphatase 80, Total Protein 6.6, Albumin 3.9 Microbiology 07/27/19 Blood Culture - Preliminary, Resulted No growth 07/28/19 MRSA Screen - Final, Complete MRSA not isolated Assessment/Plan Assessment/Plan (1) Sepsis with hypotension Status: Resolved (2) Altered mental status Status: Acute Assessment & Plan: 08/01: Patient doing well during the day and then has increased agitation and aggression at night, PRN Haldol and Geodon Qualifiers: Qualified Codes: R41.0 - Disorientation, unspecified (3) Pneumonia Status: Acute Assessment & Plan: 08/01: Continue antibiotics (4) HTN (hypertension) Status: Chronic Assessment & Plan: 08/01: Holding for hypotension from sepsis Qualifiers: Qualified Codes: I10 - Essential (primary) hypertension (5) Aggression Status: Acute (6) Diabetes mellitus Status: Chronic Assessment & Plan: 08/01: Continue Metformin Qualifiers: Qualified Codes: E11.9 - Type 2 diabetes mellitus without complications (7) DVT prophylaxis Status: Acute Assessment & Plan: - Lovenox Clinical Quality Measures DVT/VTE Risk/Contraindication: Risk Factor Score Per Nursin RFS Level Per Nursing on Admit: 4+=Very High SANTIAGO TOBIN MD Aug 01, 2019 20:37 POS
[2019-08-01] MEDS: ENOXAPARIN 40 MG/0.4 ML (LOVENOX) SYR SC SCH ×2 (20:58→22:53)
[2019-08-01] MEDS: QUEtiapine 100 MG (SEROquel) TAB IMMEDIATE RELEASE PO SCH (20:58)
[2019-08-01] MEDS: GABAPENTIN 100 MG (NEURONTIN) CAP PO SCH (20:59)
[2019-08-01] MEDS: POLYETHYLENE GLYCOL 17 GM (MIRALAX) PACK PO SCH (22:53)
[2019-08-01 23:26] VITALS: BP 144/83
[2019-08-02] MEDS: RT-ALBUTEROL/IPRATROPIUM 3 ML (DUONEB) VIAL INH SCH ×6 (02:34→22:02)
[2019-08-02 06:20] LABS: BASOPHILS % (AUTO) 0 % (0-10); EOSINOPHILS # (AUTO) 0.4 10^3/uL (0.0-0.3); EOSINOPHILS % (AUTO) 8 % (0-10); HEMATOCRIT 34 % (35-52); HEMOGLOBIN 10.8 G/DL (11.5-16.0); LYMPHOCYTES # (AUTO) 1.4 X 10^3 (1.0-4.0); LYMPHOCYTES % (AUTO) 26 % (12-44); MEAN CORPUSCULAR HEMOGLOBIN 30 PG (25-34); MEAN CORPUSCULAR HGB CONC 32 G/DL (32-36); MEAN CORPUSCULAR VOLUME 93 FL (80-99); MEAN PLATELET VOLUME 11.5 FL (7.4-10.4); MONOCYTES # (AUTO) 0.4 X 10^3 (0.0-1.0); MONOCYTES % (AUTO) 8 % (0-12); NEUTROPHILS # (AUTO) 3.1 X 10^3 (1.8-7.8); NEUTROPHILS % (AUTO) 58 % (42-75); PLATELET COUNT 199 10^3/uL (130-400); RED CELL DISTRIBUTION WIDTH 13.5 % (10.0-14.5); WHITE BLOOD COUNT 5.3 10^3/uL (4.3-11.0)
[2019-08-02 06:39] LABS: BUN/CREATININE RATIO 9; CALCIUM 9.5 MG/DL (8.5-10.1); CARBON DIOXIDE 23 MMOL/L (21-32); CHLORIDE 109 MMOL/L (98-107); CREATININE SERUM 0.74 MG/DL (0.60-1.30); GFR ESTIMATED > 60; GLUCOSE 125 MG/DL (70-105); POTASSIUM 3.8 MMOL/L (3.6-5.0); SODIUM 143 MMOL/L (135-145)
[2019-08-02 07:17] VITALS: BP 146/83
[2019-08-02] MEDS: CEFDINIR 300 MG (OMNICEF) CAP PO SCH ×2 (09:12→20:27)
[2019-08-02] MEDS: ETODOLAC 300 MG (LODINE) CAP PO SCH (09:12)
[2019-08-02] MEDS: SENNA W/DOCUSATE (SENOKOT S) TABLET PO SCH ×2 (09:12→20:28)
[2019-08-02] MEDS: CYANOCOBALAMIN 1,000 MCG (VITAMIN B-12) TABLET PO SCH (09:12)
[2019-08-02] MEDS: FLUTICASONE NASAL SPRAY (FLONASE) 16 GM BTL NS SCH (09:12)
[2019-08-02] MEDS: FOLIC ACID 1 MG TAB PO SCH (09:13)
[2019-08-02] MEDS: FAMOTIDINE 20 MG (PEPCID) TABLET PO SCH ×2 (09:13→20:27)
[2019-08-02] MEDS: lisINopril 20 MG (PRINIVIL) TABLET PO SCH (09:13)
[2019-08-02] MEDS: OXYBUTYNIN (DITROPAN) 5 MG TAB PO SCH ×2 (09:13→20:28)
[2019-08-02] MEDS: DULoxetine 30 MG (CYMBALTA) CAP PO SCH (09:13)
[2019-08-02] MEDS: risperiDONE 2 MG (RisperDAL) TAB PO SCH ×2 (09:13→20:28)
[2019-08-02] MEDS: HALOPERIDOL 5 MG/ML (HALDOL) AMP IM PRN (09:37)
--- NOTE | 2019-08-02 10:00 | Physical Therapy Daily Note ---
PT Daily Note-Current Subjective Patient is in hallway banging on another patient's door. Nursing attempting to redirect unsuccessfully. Mental Status Patient Orientation: Confused Transfers SCALE: Activities may be completed with or without assistive devices. 8-Ivddcspxek-hnllnxp completes the activity by him/herself with no assistance from a helper. 5-Set-up or Clean-up Assistance-helper sets up or cleans up; patient completes activity. [place] assists only prior to or following the activity. 4-Supervision or Touching Assistance-helper provides verbal cues and/or touching/steadying and/or contact guard assistance as patient completes activity. Assistance may be provided throughout the activity or intermittently. 3-Partial/Moderate Assistance-helper does LESS THAN HALF the effort. [place] lifts, holds or supports trunk or limbs, but provides less than half the effort. 2-Substantial/Maximal Assistance-helper does MORE THAN HALF the effort. [place] lifts or holds trunk or limbs and provides more than half the effort. 0-Mqcjwgwqm-mpenad does ALL the effort. Patient does none of the effort to complete the activity. Or, the assistance of 2 or more helpers is required for the patient to complete the activity. If activity was not attempted, code reason: 7-Patient Refused. 9-Not Applicable-not attempted and the patient did not perform the activity before the current illness, exacerbation or injury. 10-Not Attempted due to Environmental Limitations-(lack of equipment, weather restraints, etc.). 88-Not Attempted due to Medical Conditions or Safety Concerns. Sit to Stand (QC): 4 Weight Bearing Right Lower Extremity: Right Weight Bearing/Tolerated Left Lower Extremity: Left Weight Bearing/Tolerated Gait Training Does the Patient Walk?: Yes Distance: 100' Walk 10 feet (QC): 4 Walk 50 ft with 2 Turns(QC): 4 Gait Persons Needed: 1 Gait Assistive Device: FWW functional gait sequence Assessment Patient is very agitated and combative with staff on this date. Patient able to perform ambulation safely to return to room, in recliner with chair alarm act ivated and sitter present. PT Mcfp Goals Mcfp Goals PT Literature Professor Goals Time Frame: Aug 12, 2019 Roll Left & Right (QC): 6 Sit to Lying (QC): 6 Lying-Sitting on Side/Bed(QC): 6 Sit to Stand (QC): 6 Chair/Ohq-zk-Jlusa Xfer(QC): 6 Toilet Transfer (QC): 6 Car Transfer (QC): 6 Does the Patient Walk: Yes Walk 10 feet (QC): 6 Walk 50ft with 2 Turns (QC): 6 Walk 150 ft (QC): 6 Walking 10ft on Uneven Surface: 6 1 Step (curb) (QC): 6 4 Steps (QC): 6 12 Steps (QC): 9 Picking up an Object (QC): 6 Does the Pt use WC or Scooter?: No Type: N/A Type: N/A PT Plan Treatment/Plan Treatment Plan: Continue Plan of Care Treatment Plan: Bed Mobility, Education, Functional Activity Yohan, Functional Strength, Gait, Safety, Therapeutic Exercise, Transfers Treatment Duration: Aug 12, 2019 Frequency: 6 times per week Estimated Hrs Per Day: .25 hour per day Patient and/or Family Agrees t: Yes Time/GCodes Time In: 937 Time Out: 945 Total Billed Treatment Time: 8 Total Billed Treatment 1 visit FA 8 min JENIFER MCCAIN PT Aug 02, 2019 10:00 POS
--- NOTE | 2019-08-02 10:23 | Cardiology Progress Note ---
Subjective Date Seen by Provider: Aug 02, 2019 Time Seen by Provider: 10:22 Subjective/Events-last exam Patient up in room with walker. Pleasantly confused. Disoriented to time and place. Review of Systems General: No Chills, No Night Sweats, No Fatigue, No Malaise, No Appetite, No Other HEENT: No Head Aches, No Visual Changes, No Eye Pain, No Ear Pain, No Dysphasia , No Sinus Congestion, No Post Nasal Drip, No Sore Throat, No Other Pulmonary: No Dyspnea, No Cough, No Pleuritic Chest Pain, No Other Cardiovascular: No: Chest Pain, Palpitations, Orthopnea, Paroxysmal Noc. Dyspnea, Edema, Lt Headedness, Other Objective-Cardiology Exam Last Set of Vital Signs Vital Signs 07/29/19 08/02/19 08/02/19 04:00 07:17 08:00 Temp 36.4 Pulse 83 Resp 20 B/P (MAP) 146/83 (104) Pulse Ox 92 O2 Delivery Room Air O2 Flow Rate 2.00 FiO2 21 Capillary Refill : Less Than 3 SecondsLess Than 3 Seconds I&O Intake and Output 08/02/19 00:00 Intake Total 1040 ml Balance 1040 ml Intake Oral 1040 ml # Voids 6 # Bowel Movements 1 General: Alert, Cooperative, No Acute Distress HEENT: Atraumatic, PERRLA Neck: Supple, No JVD, No Thyromegaly Lungs: Clear to Auscultation, Normal Air Movement Heart: Regular Rate, Normal S1, Normal S2, No Murmurs Abdomen: Normal Bowel Sounds, Soft, No Tenderness, No Masses Extremities: No Edema, No Tenderness/Swelling Skin: No Rashes, No Breakdown Neuro: Normal Speech, Sensation Intact, Cranial Nerves 3-12 NL Psych/Mental Status: Mood NL Results Lab Laboratory Tests 08/02/19 05:25 A/P-Cardiology Admission Diagnosis Acute change in mental status Acute respiratory failure Sinus bradycardia Hypotension Assessment/Plan Status post change in mental status, at this time she is confused and disoriented 3, unknown baseline, managed by primary care team Status post respiratory failure with respiratory depression, better at this time. Status post sinus bradycardia probably secondary to hypoxemia. Better that this time. Patient is slightly tachycardic this morning. Sepsis, received antibiotic, following sepsis protocol, managed by medical team Generalized weakness and loss of energy, questionable secondary to sepsis. Continue to monitor at this point Hypertension, maintained on lisinopril as an outpatient. was hypotensive secondary to aggressive sedation, continue to monitor blood pressure at this History of hyperlipidemia, maintained on statin, on hold for now Diabetes mellitus, maintained on metformin. Continue to monitor Patient was on diazepam and Neurontin as an outpatient Gastroesophageal reflux disease Patient was seen and evaluated with Joy, examination performed, management plan was discussed, agree with the current scribed note, I made few changes to the note using Italic font Patient is still confused, heart rate is better On examination lungs were clear to auscultation, heart is regular Continue to monitor blood pressure and heart rate, no changes are recommended Clinical Quality Measures DVT/VTE Risk/Contraindication: Risk Factor Score Per Nursin RFS Level Per Nursing on Admit: 4+=Very High Supervisory-Addendum Brief Supervisory Addendum Participated in pt care: history, MDM, physical Personally performed: exam, history, MDM Care discussed with: JOY GARCIA Aug 02, 2019 10:23 am HUNG GARIBAY MD Aug 02, 2019 12:51 pm ANDREW
--- NOTE | 2019-08-02 11:28 | Occupational Ther Daily Note ---
OT Current Status-Daily Note Subjective Pt lying in bed, alert. Per nrsg, pt has been getting out of room, being combative and trying to leave the hospital. No c/o pain at this time. Pt states that she is seeing children in her bed, HICKEY reoriented and shown pt that what she was seeing was blankets and pillows. Pt talks about seeing and hearing her mom and that her mom is in the next room then talks about her sister having chemo 3x's and is in another room beside her. Mental Status/Objective Patient Orientation: Person ADL-Treatment Supine <--> EOB, mod I. Bed mobility, mod I. Donned socks independently sitting EOB. Pt ambulated to bathroom using FWW. Transferred to toilet, mod I and completed toileting, mod I. Stood at sink to wash hands and face, mod I. After therapy, pt lying in bed with safety measures in place. Call light/phone in reach. All needs met in room. Therapy Code Descriptions/Definitions Functional [place] Measure: 0=Not Assessed/NA 4=Minimal Assistance 1=Total Assistance 5=Supervision or Setup 2=Maximal Assistance 6=Modified [place] 3=Moderate Assistance 7=Complete IndependenceSCALE: Activities may be completed with or without assistive devices. 9-Uzdjyyexpp-wfdmxsu completes the activity by him/herself with no assistance from a helper. 5-Set-up or Clean-up Assistance-helper sets up or cleans up; patient completes activity. [place] assists only prior to or following the activity. 4-Supervision or Touching Assistance-helper provides verbal cues and/or touching/steadying and/or contact guard assistance as patient completes activity. Assistance may be provided throughout the activity or intermittently. 3-Partial/Moderate Assistance-helper does LESS THAN HALF the effort. [place] lifts, holds or supports trunk or limbs, but provides less than half the effort. 2-Substantial/Maximal Assistance-helper does MORE THAN HALF the effort. [place] lifts or holds trunk or limbs and provides more than half the effort. 9-Tiapbfjoe-yukjiq does ALL the effort. Patient does none of the effort to complete the activity. Or, the assistance of 2 or more helpers is required for the patient to complete the activity. If activity was not attempted, code reason: 7-Patient Refused. 9-Not Applicable-not attempted and the patient did not perform the activity before the current illness, exacerbation or injury. 10-Not Attempted due to Environmental Limitations-(lack of equipment, weather restraints, etc.). 88-Not Attempted due to Medical Conditions or Safety Concerns. Toileting Hygiene (QC): 6 Toilet Transfer (QC): 6 footwear(QC) 6 OT Boiler Tube Reamer Goals Shelter Goals Time Frame: Aug 04, 2019 Eating (QC): 6 Oral Hygiene (QC): 6 Toileting Hygiene (QC): 6 Shower/Bathe Self (QC): 6 Upper Body Dressing (QC): 6 Lower Body Dressing (QC): 6 On/Off Footwear (QC): 6 Additional Goals: 1-Demonstrate ADL Tasks, 2-Verbalize Understanding, 3- ImproveStrength/Yohan 1=Demonstrate adherence to instructed precautions during ADL tasks. 2=Patient will verbalize/demonstrate understanding of assistive devices/modifications for ADL. 3=Patient will improve strength/tolerance for activity to enable patient to perform ADL's. OT Education/Plan Problem List/Assessment Assessment: Decreased Safety Aware, Impaired Cognition Discharge Recommendations Plan/Recommendations: Continue POC Treatment Plan/Plan of Care Patient would benefit from OT for education, treatment and training to promote independence in ADL's, mobility, safety and/or upper extremity function for ADL's. Plan of Care: ADL Retraining, Concurrent Therapy, Functional Mobility, Group Exercise/Act as Ind, UE Funct Exercise/Act Treatment Duration: Aug 04, 2019 Frequency: 5 times per week Estimated Hrs Per Day: .25 hour per day Agreement: Yes Rehab Potential: Fair Time/GCodes Start Time: 10:45 Stop Time: 11:08 Total Time Billed (hr/min): 23 Billed Treatment Time 1 visit-ADL 2 (23 min) DANIELE STAPLETON Aug 02, 2019 11:28 POS
--- NOTE | 2019-08-02 13:51 | NUR ---
RD ASSESSMENT PMHx: HTN; renal insufficiency; diverticulosis; DM PT INTERACTION: Pt was awake and pleasant during nutrition follow-up. Note pt has AMS, per chart review. Pt states eating "as well as I can." Note pt avg PO intake of 31% x4d, per chart review. Pt states no recent issues with n/v/c/d since last assessment. Note last BM was 08/01, and pt currently on bowel regimen of miralax HS; senna BID; and colace PRN. ABNORMAL NUTRITION-RELATED LAB VALUES LOW: HIGH: Cl 109; glu 125 Est. kcal needs: 0125-7954 kcal | 20-25 kcal/kg Est. Pro needs: 65-81 g Pro | 0.8-1.0 g Pro/kg PES STATEMENT: Inadequate oral intake (NI-2.1) related to loss of appetite as evidenced by pt interview | avg PO intake of 31% x4d INTERVENTION: Continue with current diet order of Regular diet. Add Glucerna (vary) to meals BID. Provides 220 kcal and 10 g Pro per serving. Will continue to follow and reassess as pt needs and status change. MONITOR/EVALUATE: PO Intake; Plan of Care; Hydration Status; Weight Status; Lab Values Beto Wetzel, MS, RD, LD
--- NOTE | 2019-08-02 14:22 | NUR ---
Dr. Neff requesting [facility] Consult due to pt's persistent confusion and intermittent agitation. [facility] and an [employer] plans to be here at 1500 to provide admission assessment. Pt was advised of evaluation as well as DPOA Ms. Chowdhury. Radha Nixon declined admission at this time due to pt's confusion and agitation .
[2019-08-02 16:00] VITALS: BP 170/84
--- NOTE | 2019-08-02 17:18 | NUR ---
Memo Newton,MS Psychologist met with pt and did interview DPOA Ms. Chowdhury, [facility] has accepted pt for further psychiatric evaluation and treatment at their in-pt Unit. All agreeable with plan but pt will need secure transport or ambulance with discharge planned for tomorrow if medically appropriate.
[2019-08-02] MEDS: ENOXAPARIN 40 MG/0.4 ML (LOVENOX) SYR SC SCH (18:37)
--- NOTE | 2019-08-02 19:28 | Progress Note ---
Subjective Subjective/Events-last exam Patient resting comfortable in bed this AM. Had some confusion and agitation this AM and was trying to go into other patient's rooms. Denies any pain or discomfort at this time. Tolerating PO diet. Review of Systems Pulmonary: No Dyspnea, No Cough Cardiovascular: No: Chest Pain, Palpitations Gastrointestinal: No: Nausea, Vomiting, Abdominal Pain, Diarrhea, Constipation Genitourinary: No Dysuria; Incontinence Neurological: Confusion; No: Weakness, Incoordination Objective Exam Last Set of Vital Signs Vital Signs Date Time Temp Pulse Resp B/P (MAP) Pulse Ox O2 Delivery O2 Flow Rate FiO2 08/02/19 16:00 37.1 98 18 170/84 (112) 96 Room Air 08/02/19 08:00 2.00 07/29/19 04:00 21 Capillary Refill : Less Than 3 SecondsLess Than 3 Seconds I&O Intake and Output 08/02/19 00:00 Intake Total 1040 ml Balance 1040 ml Intake Oral 1040 ml # Voids 6 # Bowel Movements 1 General: Alert, Cooperative, No Acute Distress, Other (Oriented only to person) Lungs: Clear to Auscultation, Normal Air Movement Heart: Regular Rate, No Murmurs Abdomen: Normal Bowel Sounds, Soft, No Tenderness, No Masses Extremities: No Edema, No Tenderness/Swelling Skin: No Rashes, No Breakdown Neuro: Normal Speech, Sensation Intact, Cranial Nerves 3-12 NL Results/Procedures Lab Laboratory Tests 08/02/19 05:25: White Blood Count 5.3, Red Blood Count 3.63L, Hemoglobin 10.8L, Hematocrit 34L, Mean Corpuscular Volume 93, Mean Corpuscular Hemoglobin 30, Mean Corpuscular Hemoglobin Concent 32, Red Cell Distribution Width 13.5, Platelet Count 199, Mean Platelet Volume 11.5H, Neutrophils (%) (Auto) 58, Lymphocytes (%) (Auto) 26, Monocytes (%) (Auto) 8, Eosinophils (%) (Auto) 8, Basophils (%) (Auto) 0, Neutrophils # (Auto) 3.1, Lymphocytes # (Auto) 1.4, Monocytes # (Auto) 0.4, Eosinophils # (Auto) 0.4H, Basophils # (Auto) 0.0, Sodium Level 143, Potassium Level 3.8, Chloride Level 109H, Carbon Dioxide Level 23, Anion Gap 11, Blood Urea Nitrogen 7, Creatinine 0.74, Estimat Glomerular Filtration Rate > 60, BUN/Creatinine Ratio 9, Glucose Level 125H, Calcium Level 9.5 Microbiology 07/27/19 Blood Culture - Final, Complete No growth 07/28/19 MRSA Screen - Final, Complete MRSA not isolated Assessment/Plan Assessment/Plan (1) Sepsis with hypotension Status: Resolved (2) Altered mental status Status: Acute Assessment & Plan: 08/01: Patient doing well during the day and then has inc reased agitation and aggression at night, PRN Haldol and Geodon 08/02: Patient continues to have episodes of extreme agitation, working on placement to [facility] Qualifiers: Qualified Codes: R41.0 - Disorientation, unspecified (3) Pneumonia Status: Acute Assessment & Plan: 08/01: Continue antibiotics 08/02: Plan on treatment with 10 days antibiotics (4) HTN (hypertension) Status: Chronic Assessment & Plan: 08/01: Holding for hypotension from sepsis Qualifiers: Qualified Codes: I10 - Essential (primary) hypertension (5) Aggression Status: Acute (6) Diabetes mellitus Status: Chronic Assessment & Plan: 08/01: Continue Metformin Qualifiers: Qualified Codes: E11.9 - Type 2 diabetes mellitus without complications (7) DVT prophylaxis Status: Acute Assessment & Plan: - Lovenox Clinical Quality Measures DVT/VTE Risk/Contraindication: Risk Factor Score Per Nursin RFS Level Per Nursing on Admit: 4+=Very High SANTIAGO TOBIN MD Aug 02, 2019 19:28 POS
[2019-08-02] MEDS: QUEtiapine 100 MG (SEROquel) TAB IMMEDIATE RELEASE PO SCH (20:27)
[2019-08-02] MEDS: POLYETHYLENE GLYCOL 17 GM (MIRALAX) PACK PO SCH (20:28)
[2019-08-02] MEDS: GABAPENTIN 100 MG (NEURONTIN) CAP PO SCH (20:28)
[2019-08-03] MEDS: MELATONIN 3 MG TABLET PO PRN (00:07)
[2019-08-03] MEDS ORDERED: WATER (STERILE) FOR INJECTION 10 ML ONE ×2 (00:27→11:07)
[2019-08-03] MEDS: ZIPRASIDONE 20 MG INJ (GEODON) VIAL IM PRN ×2 (00:34→11:21)
--- NOTE | 2019-08-03 00:34 | NUR ---
TIMELINE NOTE BELOW: 08/03/29 AT 0009: PCCT IN ROOM WITH PATIENT TO GET PT UP TO BATHROOM PER PT'S REQUEST. PCCT UNSUCCESSFUL ATTEMPTS TO GET PATIENT BACK INTO BED FOLLOWING BATHROOM USE. PT EXPERIENCING AUDITORY AND VISUAL HALLUCINATIONS, NONE OF WHICH INDICATED HARM TO SELF OR HARM TO OTHERS. 08/03/19 AT 0020: PCCT AND THIS RN UNSUCESSFUL AT REDIRECTING PT. PT STATED "I'M GOING TO GO SEE MY SISTER DOWN THE [place] TO TALK TO HER ABOUT MY NEPHEW." THIS RN ATTEMPTED TO REASON WITH PATIENT AND INFORM HER THAT THER SISTER IS NOT HERE. PT BEGINNING TO BECOME AGITATED. 08/03/19 AT 0023: PT BECOMING INCREASINGLY AGITATED THIS RN AND PCCT UNSUCCESSFULLY TRIED TO REDIRECT PATIENT AND GET PATIENT BACK INTO BED. 08/03/19 AT 0034: PCCT ABLE TO GET PT BACK INTO BED WITHOUT INCIDENT. PT AGITATED BUT NOT COMBATIVE AT THIS TIME. THIS RN ADMINISTERED 10MG GEODON IM IN RIGHT DELTOID. WILL CONTINUE TO MONITOR.
[2019-08-03 00:57] VITALS: BP 124/83
[2019-08-03] MEDS: RT-ALBUTEROL/IPRATROPIUM 3 ML (DUONEB) VIAL INH SCH ×3 (01:55→10:49)
[2019-08-03 08:00] VITALS: BP 159/84
--- NOTE | 2019-08-03 08:51 | Cardiology Progress Note ---
Subjective Date Seen by Provider: Aug 03, 2019 Time Seen by Provider: 08:49 Subjective/Events-last exam Patient is walking with sitter. No new complaints. Denies any chest pain or dyspnea. Objective-Cardiology Exam Last Set of Vital Signs Vital Signs 07/29/19 08/02/19 08/03/19 04:00 08:00 08:00 Temp 36.7 Pulse 78 Resp 18 B/P (MAP) 159/84 (109) Pulse Ox 97 O2 Delivery Room Air O2 Flow Rate 2.00 FiO2 21 Capillary Refill : Less Than 3 SecondsLess Than 3 Seconds I&O Intake and Output 08/03/19 00:00 Intake Total 790 ml Output Total 0 ml Balance 790 ml Intake Oral 790 ml Output Urine Total 0 ml # Voids 4 # Bowel Movements 1 General: Alert, Cooperative, No Acute Distress, Other (Oriented only to person) HEENT: Atraumatic, PERRLA Neck: Supple, No JVD, No Thyromegaly Lungs: Clear to Auscultation, Normal Air Movement Heart: Regular Rate, No Murmurs Abdomen: Normal Bowel Sounds, Soft, No Tenderness, No Masses Extremities: No Edema, No Tenderness/Swelling Skin: No Rashes, No Breakdown Neuro: Normal Speech, Sensation Intact, Cranial Nerves 3-12 NL Psych/Mental Status: Mood NL A/P-Cardiology Admission Diagnosis Acute change in mental status Acute respiratory failure Sinus bradycardia Hypotension Assessment/Plan Status post change in mental status, at this time she is confused and disoriented 3, unknown baseline, managed by primary care team Status post respiratory failure with respiratory depression, better at this time. Status post sinus bradycardia probably secondary to hypoxemia. Better that this time. Continue to monitor. Sepsis, received antibiotic, following sepsis protocol, managed by medical team Generalized weakness and loss of energy, questionable secondary to sepsis. Improving, continue to monitor. Hypertension, maintained on lisinopril as an outpatient. was hypotensive secondary to aggressive sedation, continue to monitor blood pressure at this History of hyperlipidemia, maintained on statin, on hold for now Diabetes mellitus, maintained on metformin. Continue to monitor Patient was on diazepam and Neurontin as an outpatient Gastroesophageal reflux disease Clinical Quality Measures DVT/VTE Risk/Contraindication: Risk Factor Score Per Nursin RFS Level Per Nursing on Admit: 4+=Very High NOLA FLETCHER Aug 03, 2019 08:51 POS
[2019-08-03] MEDS ORDERED: VITAMIN D2 50,000 UNITS (1.25 MG) CAP PO SCH (09:00)
[2019-08-03] MEDS: lisINopril 20 MG (PRINIVIL) TABLET PO SCH (09:15)
[2019-08-03] MEDS: risperiDONE 2 MG (RisperDAL) TAB PO SCH (09:15)
[2019-08-03] MEDS: FOLIC ACID 1 MG TAB PO SCH (09:15)
[2019-08-03] MEDS: DULoxetine 30 MG (CYMBALTA) CAP PO SCH (09:15)
[2019-08-03] MEDS: OXYBUTYNIN (DITROPAN) 5 MG TAB PO SCH (09:15)
[2019-08-03] MEDS: CEFDINIR 300 MG (OMNICEF) CAP PO SCH (09:15)
[2019-08-03] MEDS: SENNA W/DOCUSATE (SENOKOT S) TABLET PO SCH (09:15)
[2019-08-03] MEDS: ETODOLAC 300 MG (LODINE) CAP PO SCH (09:15)
[2019-08-03] MEDS: FAMOTIDINE 20 MG (PEPCID) TABLET PO SCH (09:15)
[2019-08-03] MEDS: CYANOCOBALAMIN 1,000 MCG (VITAMIN B-12) TABLET PO SCH (09:37)
[2019-08-03] MEDS: FLUTICASONE NASAL SPRAY (FLONASE) 16 GM BTL NS SCH (09:37)
[2019-08-03] MEDS: HYDROcodone/APAP 10 MG/325 MG (LORTAB) TAB PO PRN (10:09)
--- NOTE | 2019-08-03 10:40 | Physical Therapy Progress Note ---
Therapy Progress Note Attempted to see patient x 2 this AM. On initial visit, patient states she just completed a long walk with nurse aide (nurse confirms). On second visit, patient states she is going home today and is waiting for family to arrive. We will check patient status this PM as able. 1, visit only ([id number], [id number]) ANGIE HOUSTON PT Aug 03, 2019 10:40 POS
[2019-08-03] MEDS ORDERED: QUET100T69 PO (11:44)
--- NOTE | 2019-08-03 11:45 | Discharge Instructions ---
Discharge [facility] Reconcile Patient Problems Problems Reviewed?: Yes Discharge Medications New Medications: Quetiapine Fumarate (Quetiapine Fumarate) 100 Mg Tablet 100 MG PO HS, #30 TAB Continued Medications: Ammonium Lactate (Ammonium Lactate) 226 Gm Lotion TOP BID, EA Atorvastatin Calcium (Atorvastatin Calcium) 20 Mg Tablet 20 MG PO HS, TAB LAST FILLED #90 12-31-18 Chlorhexidine Gluconate (Chlorhexidine Gluconate) 473 Ml Mouthwash 5 ML PO BID PRN for MOUTH, EA Cyanocobalamin (Vitamin B-12) (Vitamin B-12) 1,000 Mcg Tablet 1000 MCG PO DAILY, TAB Diazepam (Diazepam) 5 Mg Tablet 5 MG PO Q8H PRN for ANXIETY, TAB Diclofenac Sodium (Diclofenac Sodium) 75 Mg Tablet.dr 75 MG PO DAILY, TAB Duloxetine HCl (Duloxetine HCl) 60 Mg Capsule.dr 60 MG PO DAILY, CAP LAST FILLED #90 03-21-19 Ergocalciferol (Vitamin D2) (Vitamin D2) 50,000 Unit Capsule 29996 UNIT PO WEEK, CAP Famotidine (Famotidine) 20 Mg Tablet 20 MG PO BID, TAB LAST FILLED #180 12-31-18 Fluticasone Propionate (Fluticasone Propionate) 16 Gm [place].susp 2 SPRAYS NS DAILY, EA Folic Acid (Folic Acid) 1 Mg Tablet 1 MG PO DAILY, TAB UNKNOWN LAST FILL DATE Gabapentin (Gabapentin) 100 Mg Capsule 100 MG PO HS, CAP Hydrocodone/Acetaminophen (Hydrocodon-Acetaminophn 10-325) 1 Each Tablet 1 TAB PO QID PRN for PAIN-MODERATE (5-7), TAB Lisinopril (Lisinopril) 20 Mg Tablet 20 MG PO DAILY, TAB LAST FILLED #90 03-27-19 Metformin HCl (Metformin HCl) 1,000 Mg Tablet 1000 MG PO BID, TAB LAST FILLED #180 19 Oxybutynin Chloride (Oxybutynin Chloride ER) 5 Mg Tab.er.24 5 MG PO BID, TAB Polyethylene Glycol 3350 (Miralax) 17 Gm Powd.pack 17 GM PO DAILY, EACH Promethazine HCl (Promethazine Tablet) 25 Mg Tablet 25 MG PO TID PRN for NAUSEA/VOMITING-2ND LINE, TAB Simethicone (Gas-X) 125 Mg Capsule 125 MG PO PCHS PRN for GAS, CAP Sodium Chloride/Aloe Vera (Waka Saline Nasal Gel [place]) 22 Ml [place] 2 SPRAYS NSEACH Q2H PRN for DRY NOSE, SPRAY Discontinued Medications: Dicyclomine HCl (Dicyclomine HCl) 10 Mg Capsule 10 MG PO QID, CAP LAST FILLED #360 03-24-19 Gabapentin (Gabapentin) 800 Mg Tablet 800 MG PO QID, TAB Lutein (Lutein) 20 Mg Tablet 20 MG PO DAILY, TAB Ropinirole HCl (Ropinirole HCl) 0.5 Mg Tablet 0.5 MG PO 1800, TAB Patient Instructions Goal/Follow Up Appt: [facility] is d[facility]c from [place] [facility] Activity & Diet Discharge Diet: ADA Diet Activity as Tolerated: Yes Copy Copies To 1: SHANIQUE DOWNEY MD, HOLLY R MD Aug 03, 2019 11:45 POS
--- NOTE | 2019-08-03 11:46 | Discharge Summary ---
Diagnosis/Chief Complaint Date of Admission Jul 27, 2019 at 16:50 Date of Discharge 08/03/19 Admission Diagnosis Admission Diagnosis See problem list Discharge Diagnosis See below Problems/Diagnosis: (1) Sepsis with hypotension Status: Resolved Resolution Date/Time: 07/31/19 @ 20:36 (2) Altered mental status Assessment & Plan: 08/01: Patient doing well during the day and then has increased agitation and aggression at night, PRN Haldol and Geodon 08/02: Patient continues to have episodes of extreme agitation, working on placement to [facility] Qualifiers: Qualified Codes: R41.0 - Disorientation, unspecified Status: Acute (3) Pneumonia Assessment & Plan: 08/01: Continue antibiotics 08/02: Plan on treatment with 10 days antibiotics Status: Acute (4) HTN (hypertension) Assessment & Plan: 08/01: Holding for hypotension from sepsis Qualifiers: Qualified Codes: I10 - Essential (primary) hypertension Status: Chronic (5) Aggression Status: Acute (6) Diabetes mellitus Assessment & Plan: 08/01: Continue Metformin Qualifiers: Qualified Codes: E11.9 - Type 2 diabetes mellitus without complications Status: Chronic (7) DVT prophylaxis Assessment & Plan: - Lovenox Status: Acute Discharge Summary-Simple/Stand Consultations Dr Rosen: Cardiology Discharge Physical Examination Allergies: Coded Allergies: aspirin (Unverified Adverse Reaction, Unknown, 01/01/19) Vitals & I&Os Vital Sign - Last 12Hours Date Time Temp Pulse Resp B/P (MAP) Pulse Ox O2 Delivery O2 Flow Rate FiO2 08/03/19 10:49 92 Room Air 08/03/19 08:00 2.00 08/03/19 08:00 36.7 78 18 159/84 (109) 07/29/19 04:00 21 Intake and Output 08/03/19 00:00 Intake Total 790 ml Balance 790 ml General Appearance: Alert, Cooperative, No Acute Distress Respiratory: Clear to Auscultation, Normal Air Movement Cardiovascular: Regular Rate, No Murmurs Abdominal: Normal Bowel Sounds, Soft, No Tenderness, No Masses Extremities: No Edema, No Tenderness/Swelling Skin: No Rashes, No Breakdown Neuro: Normal Speech, Strength at 5/5 X4 Ext, Sensation Intact, Cranial Nerves 3-12 NL, Other (confused, states that she see her mother and sister outside the room) Hospital Course Was the Problem List Reviewed?: Yes See final discharge diagnosis. Discussion & Recommendations 68 yo F that presented with Sepsis and PNA. Patient completed treatment while in the hospital. Patient has dementia and started having increasing aggression and agitation toward staff. Patient was discharged to inpatient geripsych and then would recommend placement after stable. Discharge Condition at discharge stable Instructions to patient/family Please see electronic discharge instructions given to patient. Discharge Medications Reviewed and agree with Discharge Medication list on patient's Discharge Instruction sheet Clinical Quality Measures DVT/VTE Risk/Contraindication: Risk Factor Score Per Nursin RFS Level Per Nursing on Admit: 4+=Very High SANTIAGO TOBIN MD Aug 03, 2019 11:46 POS
--- NOTE | 2019-08-03 13:13 | NUR ---
REPORT CALLED TO DAHIANA HAYES AT [facility].
--- NOTE | 2019-08-03 13:35 | NUR ---
PATIENT WAS TRANSPORTED BY AGENCY SET UP BY PROGRAM MANAGEMENT ANALYST
--- NOTE | 2019-08-03 13:58 | NUR ---
Arrangements completed for pt be admitted to [facility] and transported by [facility], Nikkie Dover. Pt cooperative and advised DPOA of transfer.
== END 2019-08-03 13:34 | DRG 871 ==
LOC: EDUNIT# 13:38 → ER FS 13:46 → ICU 16:50 → 4TH 07-29 13:04
PROVIDERS: ADMIT Internal Medicine; ATTEND Internal Medicine
DX: A41.9 Sepsis, unspecified organism (principal); J18.1 Lobar pneumonia, unspecified organism; G93.40 Encephalopathy, unspecified; J96.01 Acute respiratory failure with hypoxia; R00.1 Bradycardia, unspecified; E87.2 Acidosis; F11.20 Opioid dependence, uncomplicated; R64 Cachexia; F03.91 Unspecified dementia, unspecified severity, with behavioral disturbance; T42.4X5A Adverse effect of benzodiazepines, initial encounter; T43.595A Adverse effect of other antipsychotics and neuroleptics, initial encounter; T40.4X5A Adverse effect of other synthetic narcotics, initial encounter; T43.1X5A Adverse effect of monoamine-oxidase-inhibitor antidepressants, initial encounter; T42.75XA Adverse effect of unspecified antiepileptic and sedative-hypnotic drugs, initial encounter; E11.42 Type 2 diabetes mellitus with diabetic polyneuropathy; K21.9 Gastro-esophageal reflux disease without esophagitis; E78.5 Hyperlipidemia, unspecified; I12.9 Hypertensive chronic kidney disease with stage 1 through stage 4 chronic kidney disease, or unspecified chronic kidney disease; N18.3 Chronic kidney disease, stage 3 (moderate); E86.0 Dehydration; I95.9 Hypotension, unspecified; E83.42 Hypomagnesemia; R32 Unspecified urinary incontinence; R29.6 Repeated falls; K44.9 Diaphragmatic hernia without obstruction or gangrene; F41.9 Anxiety disorder, unspecified; F32.9 Major depressive disorder, single episode, unspecified; F81.9 Developmental disorder of scholastic skills, unspecified; Z79.84 Long term (current) use of oral hypoglycemic drugs; Z68.32 Body mass index [BMI] 32.0-32.9, adult
CPT/HCPCS: 36415; 70450; 70470; 71045; 80048; 80053; 80306; 81000; 82805; 82962; 83605; 83735; 83880; 84100; 84484; 85007; 85025; 85027; 87040; 87081; 93005; 93306; 94640; 94660; 94760